=== PATIENT | female | born 1945 | race Caucasian/White ===

== ENCOUNTER 2020-09-10 19:53 | Inpatient (IN) ==
[2020-09-10] MEDS ORDERED: FUROSEMIDE 10 MG/ML VIAL IV ONE (22:35)
[2020-09-10 22:50] LABS: Hematocrit 43.8 % (37.0-47.0); Hemoglobin 13.8 gm/dL (12.5-16.0); Mean Cell Volume 91.4 fl (78-100); Mean Corpuscular Hemoglobin 28.8 pg (27-31); Mean Corpuscular Hgb Conc 31.5 g/dl (32-36); Mean Platelet Volume 9.1 fl (8-12.5); Platelet Count 322 K/mm3 (150-450); Red Blood Count 4.79 M/mm3 (4.2-5.4); Red Cell Distribution Width 14.1 % (11.5-14.0); White Blood Count 27.2 K/mm3 (4.0-10.5)
[2020-09-10 22:52] LABS: Total Cells Counted 100
[2020-09-10 23:07] LABS: Troponin I 0.057 ng/mL (0.00-0.10)
[2020-09-10 23:13] LABS: Albumin * 2.6 gm/dl (3.4-5.0); Anion Gap 12.4 mmol/L (6.8-13.8); BUN/Creatinine Ratio 38.6 (9.0-21.6); Bilirubin, Total 0.7 mg/dL (0.0-1.1); Calcium * 10.2 mg/dL (7.9-10.9); Carbon Dioxide 33.8 mmol/L (24-32.6); Potassium 4.2 mmol/L (3.4-4.6); Total Protein 6.8 gm/dL (6.2-8.2)
[2020-09-10 23:20] LABS: Band 3 % (0-2.0); Lymphocyte 5 % (20-51); Monocyte 3 % (0-9); Neutrophil 89 % (42-75); Neutrophil # 24.2 K/mm3 (1.3-6.0); Platelet Estimate Normal (NORMAL); RBC Morphology Normal (NORMAL)
[2020-09-11 00:15] LABS: Urine Bilirubin 3 mg/dl (NEGATIVE); Urine Blood 50 /ul (NEGATIVE); Urine Ketone 15 mg/dL (NEGATIVE); Urine Nitrite Negative (NEGATIVE); Urine Protein 30 mg/dL (NEGATIVE); Urine Specific Gravity 1.025 SP.GR. (1.005-1.010); Urine Urobilinogen Normal (NORMAL); Urine pH 5.5 pH (5.0-7.0)
--- NOTE | 2020-09-11 00:24 | ERNOTE ---
Medical Problem HPI - Narrative Date of Service: 09/11/20 - General Chief Complaint: General Assessment Time Seen by Provider: 09/10/20 22:28 Source: patient, family Exam Limitations: no limitations - Immun/Allergies/Home Medications Immunizations: IMMUNIZATION HX Immunizations Up to Date Yes Allergies/Adverse Reactions: Allergies oxytetracycline [From Terramycin] Allergy (Verified 09/10/20 22:18) cleaning supplies Allergy (Uncoded 09/10/20 22:18) detergent Allergy (Uncoded 09/10/20 22:18) erythromycin Allergy (Uncoded 09/10/20 22:18) grasses Allergy (Uncoded 09/10/20 22:18) perfumes Allergy (Uncoded 09/10/20 22:18) Home Medications: HOME MEDICATIONS albuterol sulfate 0.63 mg/3 mL solution for nebulization 0.63 mg IH QID PRN 07/05/18 [Last Taken Unknown] brimonidine 0.15 % eye drops 1 drp OP BID ml 07/05/18 [Last Taken Unknown] acetaminophen 325 mg tablet See Rx Instructions PO .COMPLEX PRN 07/06/18 [Last Taken Unknown] albuterol sulfate 90 mcg/actuation aerosol inhaler See Rx Instructions IH .COMPLEX 07/06/18 [Last Taken Unknown] calcium carbonate 600 mg (1,500 mg)-vitamin D3 400 unit tablet 1 tab PO TID 07/06/18 [Last Taken Unknown] ipratropium bromide 0.02 % solution for inhalation See Rx Instructions IH .COMPLEX 07/06/18 [Last Taken Unknown] latanoprost 0.005 % eye drops 1 drp OP DAILY 07/06/18 [Last Taken Unknown] montelukast 10 mg tablet 10 mg PO DAILY #90 tab 07/17/18 [Last Taken Unknown] dorzolamide 2 % eye drops 1 drp OP TID 02/21/19 [Last Taken Unknown] spironolactone 25 mg tablet 50 mg PO DAILY #180 tab 03/19/20 [Last Taken Unknown] furosemide 40 mg tablet See Rx Instructions .ROUTE .COMPLEX #180 unspecified 03/21/20 [Last Taken Unknown] lisinopril 10 mg tablet See Rx Instructions .ROUTE .COMPLEX #90 unknown measurement unit code: not specified 06/16/20 [Last Taken Unknown] prednisone 20 mg tablet 20 mg PO DAILY #90 tab 06/20/20 [Last Taken Unknown] amlodipine 10 mg tablet See Rx Instructions .ROUTE .COMPLEX #90 unknown measurement unit code: not specified 06/27/20 [Last Taken Unknown] hydrocodone 5 mg-acetaminophen 325 mg tablet 1 tab PO .COMPLEX PRN #90 tab 08/29/20 [Last Taken Unknown] pioglitazone 15 mg tablet See Rx Instructions .ROUTE .COMPLEX #30 unknown measurement unit code: not specified 09/01/20 [Last Taken Unknown] - History of Present History Narrative: patient presents to ed with c/o increased edama and dyspnea has not taken lasix for several days Timing: constant, getting worse Severity: moderate Modifying Factors - (Improves): Present: other - nothing Modifying Factors - (Worsens): Present: movement Review of Systems - Review of Systems Constitutional: Present: See HPI, weakness, fatigue, malaise EYE: Present: no symptoms reported ENT: Present: no symptoms reported Respiratory: Present: shortness of breath, wheezing Cardiology: Present: no symptoms reported Gastrointestinal/Abdominal: Present: no symptoms reported Genitourinary: Present: no symptoms reported Musculoskeletal: Present: no symptoms reported Skin: Present: no symptoms reported Medical History (Last Reviewed 09/10/20 @ 22:18 by Catie Cevallos RN) Asthma Onset Date: Unknown Chronic obstructive pulmonary disease Onset Date: Unknown Chronic renal failure Onset Date: Unknown Colonoscopy refused Onset Date: Unknown Depression Onset Date: Unknown Diabetes mellitus Onset Date: Unknown Goiter Onset Date: Unknown mutlinodular goiter Hypertension Onset Date: Unknown Hypokalemia Onset Date: Unknown Obesity Onset Date: Unknown Patella fracture Onset Date: 08/2018 left Polio Onset Date: Unknown Primary localized osteoarthrosis, ankle and foot Onset Date: Unknown Respiratory failure, chronic Onset Date: ~2007 significant respiratory failure with hypoxemia and CO2 retention secondary to COPD Surgical History: Surgical History (Last Reviewed 09/10/20 @ 22:18 by Catie Cevallos, RENITA) Cataract Onset Date: ~1999 [id number] both eyes Encounter for tubal ligation Onset Date: ~1969 History of tonsillectomy Onset Date: ~1949 Family History: Family History (Last Reviewed 09/10/20 @ 22:18 by Catie Cevallos, RENITA) Father , age 82 Alzheimers disease Mother Hypertension Heart disease Breast cancer Skin cancer Borderline diabetes Social History: (Last Reviewed 09/10/20 @ 22:18 by Catie Cevallos RN) Social History: Marital status: / household members: none current occupational status: retired current occupation: disability Highest education level completed: some college, no degree Service: No Tobacco: Smoking Status: Current every day smoker Alcohol: alcohol intake: current Substance Use: substance use type: does not use Dietary Habits: caffeine: Yes Type: coffee Physical Exam - Physical Exam General Appearance: Present: moderate distress, anxious Head Exam: Present: normal inspection, no evidence of injury Eye Exam: Normal inspection: bilateral, PERRL: bilateral, EOMI: bilateral Ears, Nose, Throat: Present: normal ENT inspection, normal pharynx Neck: Present: normal inspection, nontender Respiratory: Present: no respiratory distress, no accessory muscle use, rales, rhonchi Cardiovascular/Chest: Present: irregularly irregular Gastrointestinal/Abdominal: Present: normal bowel sounds, nontender, nondistended, soft, no organomegaly Back Exam: Present: normal inspection, normal range of motion, no CVA tenderness, no vertebral tenderness Extremity Exam: Present: normal except - - upper and lower extremity edema Neurological Exam: Present: alert, oriented, normal mood/affect, no motor/sensory deficits Skin Exam: Present: normal color, warm/dry Lymphatic Exam: Present: no adenopathy Progress - Date and Time Seen: Date and Time: 09/11/20 00:20 condition unchanged case discussed with dr bailey accepted for admission - Results and Orders Patient's Lab Results:: I have reviewed the patient's lab results. - Vital Signs Patient's Vital Signs:: I have reviewed the patient's vital signs. Vital Signs: Vital Signs 09/10/20 19:54 09/10/20 23:18 09/10/20 23:46 Temperature 36.9 C Pulse Rate 112 H 101 H 106 H Respiratory Rate 28 H 20 Blood Pressure 104/63 109/80 127/64 O2 Sat by Pulse Oximetry 94 99 - EKG EKG #1 EKG: atrial fibrillation - X-Ray X-Ray #1 X-Ray: chest - pulmonary edema - Progress/Reassessment Chief Complaint: General Assessment Progress:: Unchanged - Transfer of Care Expected Disposition: Admit Plan - Plan Plan: to admit to hospital Departure Clinical Impression: Chronic obstructive pulmonary disease, CRF (chronic renal failure), CHF (congestive heart failure) - Departure Disposition: Short Term Hospital Inpatient Condition: Serious Referrals: Noel Garibay MD [Primary Care Provider] -
[2020-09-11 00:26] LABS: Urine Appearance Clear (CLEAR); Urine Color Yellow
[2020-09-11 00:27] LABS: Urine Bacteria 3+; Urine WBC 0-5 /hpf (0-5)
[2020-09-11] MEDS ORDERED: METOPROLOL TARTRATE 1 MG/ML AMPUL IV ONE (03:04)
[2020-09-11] MEDS ORDERED: ALBUTEROL SULFATE 200 PUFF INHALER IH PRN (05:33)
--- NOTE | 2020-09-11 08:29 | HP ---
Chief Complaint - Chief Complaint Date of Service: 09/11/20 Time of Service: 08:11 Chief Complaint: dyspnea History of Present Illness: Alejandra Dewitt is a 75-year-old white female with past medical history of COPD, diabetes mellitus type 2, polycythemia secondary to chronic hypoxia, chronic renal failure, hypertension who was admitted on 09/10/2020 because of increasing dyspnea. The patient went to the emergency room because she said th at her shortness of breath has been getting worse and she noticed swelling of her legs and arms. She admitted that she did not take her Lasix and had been noncompliant with her decrease salt intake. She also says that 2 weeks ago her right hand started getting swollen and then started getting red. She did not have any history of trauma to her right hand or any insect bites or pet bites/scratch. In the emergency room her white blood cell count was elevated at 27, BNP of 8499, procalcitonin of 2.67, Cr 1.4 with GFR 44. Her chest x-ray showed hyperinflation, mild left ventricular enlargement, questionable infrahilar/right lower lobe infiltrate. It did not show any pulmonary edema or pleural effusion. She denied coughing more than her usual coughs. She also denies any orthopnea. Her EKG showed atrial fibrillation with rapid ventricular rate. She was given IV furosemide, IV Rocephin and was admitted by emergency room as congestive heart failure. Medical History (Last Reviewed 09/10/20 @ 22:18 by Catie Cevallos RN) Asthma Onset Date: Unknown Chronic obstructive pulmonary disease Onset Date: Unknown Chronic renal failure Onset Date: Unknown Colonoscopy refused Onset Date: Unknown Depression Onset Date: Unknown Diabetes mellitus Onset Date: Unknown Goiter Onset Date: Unknown mutlinodular goiter Hypertension Onset Date: Unknown Hypokalemia Onset Date: Unknown Obesity Onset Date: Unknown Patella fracture Onset Date: 08/2018 left Polio Onset Date: Unknown Primary localized osteoarthrosis, ankle and foot Onset Date: Unknown Respiratory failure, chronic Onset Date: ~2007 significant respiratory failure with hypoxemia and CO2 retention secondary to COPD Surgical History: Surgical History (Last Reviewed 09/10/20 @ 22:18 by Catie Cevallos RN) Cataract Onset Date: ~1999 [id number] both eyes Encounter for tubal ligation Onset Date: ~1969 History of tonsillectomy Onset Date: ~1949 Family History: Family History (Last Reviewed 09/10/20 @ 22:18 by Catie Cevallos RN) Father , age 82 Alzheimers disease Mother Hypertension Heart disease Breast cancer Skin cancer Borderline diabetes Social History: (Last Reviewed 09/10/20 @ 22:18 by Catie Cevallos RN) Social History: Marital status: / household members: none current occupational status: retired current occupation: disability Highest education level completed: some college, no degree Service: No Tobacco: Smoking Status: Current every day smoker Alcohol: alcohol intake: current Substance Use: substance use type: does not use Dietary Habits: caffeine: Yes Type: coffee Review Of Systems (GEN) - Review of Systems Generalized/Overall Review: Present: Weight gain. Absent: Chills, Fever Respiratory: Present: Cough, Shortness of Breath, Wheezing. Absent: Orthopnea Cardiac: Present: Edema, Palpitations. Absent: Chest Pain Abdominal: Absent: Nausea, Vomiting Genitourinary: Absent: Urgency, Frequency Musculoskeletal: Present: Joint Pain Neurological: Absent: Headache Skin: Present: Other - Erythema. Absent: Lesions Endocrine: Absent: Intolerance to Cold, Intolerance to Heat Misc: All systems neg except as marked Immunizations: IMMUNIZATION HX Immunizations Up to Date Yes Allergies/Adverse Reactions: Allergies Allergy/AdvReac Type Severity Reaction Status Date / Time oxytetracycline Allergy Verified 09/10/20 22:18 [From Terramycin] cleaning supplies Allergy Uncoded 09/10/20 22:18 detergent Allergy Uncoded 09/10/20 22:18 erythromycin Allergy Uncoded 09/10/20 22:18 grasses Allergy Uncoded 09/10/20 22:18 perfumes Allergy Uncoded 09/10/20 22:18 Home Medications: HOME MEDICATIONS albuterol sulfate 0.63 mg/3 mL solution for nebulization 0.63 mg IH QID PRN 07/05/18 [Last Taken Unknown] brimonidine 0.15 % eye drops 1 drp OP BID ml 07/05/18 [Last Taken Unknown] acetaminophen 325 mg tablet See Rx Instructions PO .COMPLEX PRN 07/06/18 [Last Taken Unknown] albuterol sulfate 90 mcg/actuation aerosol inhaler See Rx Instructions IH .COMPLEX 07/06/18 [Last Taken Unknown] calcium carbonate 600 mg (1,500 mg)-vitamin D3 400 unit tablet 1 tab PO TID 0 07/06/18 [Last Taken Unknown] ipratropium bromide 0.02 % solution for inhalation See Rx Instructions IH .COMPLEX 07/06/18 [Last Taken Unknown] latanoprost 0.005 % eye drops 1 drp OP DAILY 07/06/18 [Last Taken Unknown] montelukast 10 mg tablet 10 mg PO DAILY #90 tab 07/17/18 [Last Taken Unknown] dorzolamide 2 % eye drops 1 drp OP TID 02/21/19 [Last Taken Unknown] spironolactone 25 mg tablet 50 mg PO DAILY #180 tab 03/19/20 [Last Taken Unknown] furosemide 40 mg tablet See Rx Instructions .ROUTE .COMPLEX #180 unspecified 03/21/20 [Last Taken Unknown] lisinopril 10 mg tablet See Rx Instructions .ROUTE .COMPLEX #90 unknown measurement unit code: not specified 06/16/20 [Last Taken Unknown] prednisone 20 mg tablet 20 mg PO DAILY #90 tab 06/20/20 [Last Taken Unknown] amlodipine 10 mg tablet See Rx Instructions .ROUTE .COMPLEX #90 unknown measurement unit code: not specified 06/27/20 [Last Taken Unknown] hydrocodone 5 mg-acetaminophen 325 mg tablet 1 tab PO .COMPLEX PRN #90 tab 08/29/20 [Last Taken Unknown] pioglitazone 15 mg tablet See Rx Instructions .ROUTE .COMPLEX #30 unknown measurement unit code: not specified 09/01/20 [Last Taken Unknown] Albuterol Sulfate 2.5 mg INHALATION PRN PRN 09/11/20 [Last Taken Unknown] Ascorbate Calcium [Vitamin C] 500 mg PO DAILY 09/11/20 [Last Taken Unknown] Ipratropium [place] [Atrovent] 2.5 inh PRN PRN 09/11/20 [Last Taken Unknown] Sennosides/Docusate Sodium [Stool Softener-Laxative Tablet] 1 tab PO PRN PRN 09/11/20 [Last Taken Unknown] Vitamin A 10,000 unit PO DAILY 09/11/20 [Last Taken Unknown] guaiFENesin [Guaifenesin] 1 cap PO PRN PRN 09/11/20 [Last Taken Unknown] Exam - Exam Vital Signs: Vital Signs - Last Taken Temp 36.6 C 09/11/20 07:21 Pulse 115 H 09/11/20 07:21 Resp 20 09/11/20 07:21 BP 115/68 09/11/20 07:21 Pulse Ox 93 09/11/20 07:21 Constitutional: Present: Alert, Oriented x3, Cooperative, Elderly ENT Exam: Present: hearing grossly normal Eye Exam: bilateral eye: normal inspection, PERRL, EOMI Respiratory: Present: decreased breath sounds, crackles, wheezing Cardiovascular/Chest: Present: no JVD, no murmur, irregularly irregular Abdomen: Present: Normal bowel sounds, soft, nontender, nondistended Extremity: Present: no calf tenderness, lower extremity edema, other - swelling/redness right hand, blister dorsum, thenar eminence tender and swollen, pulses faint, decreased ROM/painful when trying to make a fist Diagnostic Studies: Abnormal Lab Results 09/10/20 09/10/20 09/10/20 Range/Units 22:40 22:40 22:40 WBC 27.2 H (4.0-10.5) K/mm3 MCHC 31.5 L (32-36) g/dl RDW 14.1 H (11.5-14.0) % Neutrophils % (Manual) 89 H (42-75) % Band Neuts % (Manual) 3 H (0-2.0) % Lymphocytes % (Manual) 5 L (20-51) % Neutrophils # (Manual) 24.2 H (1.3-6.0) K/mm3 Lymphocytes # (Manual) 1.4 L (1.5-3.5) k/mm3 pCO2 (32.0-45.0) mmHg pO2 (83.0-108.0) mmHg HCO3 (21.0-28.0) mmol/L Total CO2 (19.0-24.0) mmol/L Base Excess (-2.0-3.0) mmol/L ABG O2 Sat (Measured) (94.0-98.0) % Sodium 131 L (132-142) mmol/L Chloride 89 L (97-106) mmol/L Carbon Dioxide 33.8 H (24-32.6) mmol/L BUN 49 H D (3-23) mg/dL Est GFR (Non-Af Amer) 44 L D (60-130) mL/min BUN/Creatinine Ratio 38.6 H (9.0-21.6) Random Glucose 134 H (70-110) mg/dL Calcium Adj for Albumin 11.0 H (8.4-10.2) mg/dL B-Natriuretic Peptide 8499 H (5-550) pg/mL Albumin 2.6 L (3.4-5.0) gm/dl Procalcitonin 2.67 H (0.05-0.50) ng/mL Urine Protein (NEGATIVE) mg/dL Urine Blood (NEGATIVE) /ul Urine Bilirubin (NEGATIVE) mg/dl Urine RBC (0-5) /hpf Urine Bacteria (NONE) 09/10/20 09/11/20 Range/Units 23:25 00:05 WBC (4.0-10.5) K/mm3 MCHC (32-36) g/dl RDW (11.5-14.0) % Neutrophils % (Manual) (42-75) % Band Neuts % (Manual) (0-2.0) % Lymphocytes % (Manual) (20-51) % Neutrophils # (Manual) (1.3-6.0) K/mm3 Lymphocytes # (Manual) (1.5-3.5) k/mm3 pCO2 54.1 H (32.0-45.0) mmHg pO2 60.4 L (83.0-108.0) mmHg HCO3 32.2 H (21.0-28.0) mmol/L Total CO2 33.9 H (19.0-24.0) mmol/L Base Excess 5.8 H (-2.0-3.0) mmol/L ABG O2 Sat (Measured) 90.6 L (94.0-98.0) % Sodium (132-142) mmol/L Chloride (97-106) mmol/L Carbon Dioxide (24-32.6) mmol/L BUN (3-23) mg/dL Est GFR (Non-Af Amer) (60-130) mL/min BUN/Creatinine Ratio (9.0-21.6) Random Glucose (70-110) mg/dL Calcium Adj for Albumin (8.4-10.2) mg/dL B-Natriuretic Peptide (5-550) pg/mL Albumin (3.4-5.0) gm/dl Procalcitonin (0.05-0.50) ng/mL Urine Protein 30 H (NEGATIVE) mg/dL Urine Blood 50 H (NEGATIVE) /ul Urine Bilirubin 3 H (NEGATIVE) mg/dl Urine RBC 5-10 H (0-5) /hpf Urine Bacteria 3+ H (NONE) Laboratory Results WBC 27.2 K/mm3 (4.0-10.5) H 09/10/20 22:40 RBC 4.79 M/mm3 (4.2-5.4) 09/10/20 22:40 Hgb 13.8 gm/dL (12.5-16.0) 09/10/20 22:40 Hct 43.8 % (37.0-47.0) 09/10/20 22:40 MCV 91.4 fl (78-100) 09/10/20 22:40 MCH 28.8 pg (27-31) 09/10/20 22: MCHC 31.5 g/dl (32-36) L 09/10/20 22:40 RDW 14.1 % (11.5-14.0) H 09/10/20 22:40 Plt Count 322 K/mm3 (150-450) 09/10/20 22:40 MPV 9.1 fl (8-12.5) 09/10/20 22:40 Neutrophils % (Manual) 89 % (42-75) H 09/10/20 22:40 Band Neuts % (Manual) 3 % (0-2.0) H 09/10/20 22:40 Lymphocytes % (Manual) 5 % (20-51) L 09/10/20 22:40 Monocytes % (Manual) 3 % (0-9) 09/10/20 22:40 Neutrophils # (Manual) 24.2 K/mm3 (1.3-6.0) H 09/10/20 22:40 Lymphocytes # (Manual) 1.4 k/mm3 (1.5-3.5) L 09/10/20 22:40 Monocytes # (Manual) 0.8 k/mm3 (0.0-1.0) 09/10/20 22:40 Platelet Estimate Normal (NORMAL) 09/10/20:40 RBC Morphology Normal (NORMAL) 09/10/20 22:40 pCO2 54.1 mmHg (32.0-45.0) H 09/10/20 23:25 pO2 60.4 mmHg (83.0-108.0) L 09/10/20 23:25 HCO3 32.2 mmol/L (21.0-28.0) H 09/10/20 23:25 Total CO2 33.9 mmol/L (19.0-24.0) H 09/10/20 23:25 Base Excess 5.8 mmol/L (-2.0-3.0) H 09/10/20 23:25 ABG pH 7.39 (7.35-7.45) 09/10/20 23:25 ABG O2 Sat (Measured) 90.6 % (94.0-98.0) L 09/10/20 23:25 Sodium 131 mmol/L (132-142) L 09/10/20 22:40 Plasma Sodium 132 mmol/L (130-142) 09/10/20 22:40 Potassium 4.2 mmol/L (3.4-4.6) 09/10/20 22:40 Chloride 89 mmol/L (97-106) L 09/10/20 22:40 Carbon Dioxide 33.8 mmol/L (24-32.6) H 09/10/20 22:40 Anion Gap 12.4 mmol/L (6.8-13.8) 09/10/20 22:40 BUN 49 mg/dL (3-23) H D 09/10/20 22:40 Creatinine 1.27 mg/dL (0.4-1.4) 09/10/20 22:40 Est GFR (Non-Af Amer) 44 mL/min (60-130) L D 09/10/20 22:40 BUN/Creatinine Ratio 38.6 (9.0-21.6) H 09/10/20 22:40 Random Glucose 134 mg/dL (70-110) H 09/10/20 22:40 Lactic Acid, Venous 1.2 mmol/L (0.4-2.0) 09/11/20 01:32 Calcium 10.2 mg/dL (7.9-10.9) 09/10/20 22:40 Calcium Adj for Albumin 11.0 mg/dL (8.4-10.2) H 09/10/20 22:40 Total Bilirubin 0.7 mg/dL (0.0-1.1) 09/10/20 22:40 AST 25 U/L (0-48) 09/10/20 22:40 ALT 22 U/L (19-67) 09/10/20 22:40 Alkaline Phosphatase 99 U/L (50-170) 09/10/20 22:40 Troponin I 0.057 ng/mL (0.00-0.10) 09/10/20 22:40 C-Reactive Prot, Quant Less than 0.2 mg/dL (0.0-0.9) 09/10/20 22:53 B-Natriuretic Peptide 8499 pg/mL (5-550) H 09/10/20 22:40 Total Protein 6.8 gm/dL (6.2-8.2) 09/10/20 22:40 Albumin 2.6 gm/dl (3.4-5.0) L 09/10/20 22:40 Procalcitonin 2.67 ng/mL (0.05-0.50) H 09/10/20 22:40 Urine Color Yellow 09/11/20 00:05 Urine Appearance Clear (CLEAR) 09/11/20 00:05 Urine pH 5.5 pH (5.0-7.0) 09/11/20 00:05 Ur Specific [place] 1.025 SP.GR. (1.005-1.010) 09/11/20 00:05 Urine Protein 30 mg/dL (NEGATIVE) H 09/11/20 00:05 Urine Glucose (UA) Negative mg/dL (NEGATIVE) 09/11/20 00:05 Urine Ketones 15 mg/dL (NEGATIVE) 09/11/20 00:05 Urine Blood 50 /ul (NEGATIVE) H 09/11/20 00:05 Urine Nitrate Negative (NEGATIVE) 09/11/20 00:05 Urine Bilirubin 3 mg/dl (NEGATIVE) H 09/11/20 00:05 Urine Ictotest Negative (NEGATIVE) 09/11/20 00:05 Prot Sulfosalicylic Acd Negative mg/dL (0) 09/11/20 00:05 Urine Urobilinogen Normal EU/dl (NORMAL) 09/11/20 00:05 Ur Leukocyte Esterase Negative /ul (NEGATIVE) 09/11/20 00:05 Urine RBC 5-10 /hpf (0-5) H 09/11/20 00:05 Urine WBC 0-5 /hpf (0-5) 09/11/20 00:05 Ur Epithelial Cells 0-5 /hpf (0-5) 09/11/20 00:05 Urine Bacteria 3+ (NONE) H 09/11/20 00:05 Urine Culture Comments Culture to follow 09/11/20 00:05 Assessment/Plan - Narrative Narrative: Alejandra Bhagat was admitted for increasing shortness of breath and swelling of her extremities. Admitting diagnosis by ED was COPD, CHF, chronic renal failure. While her increasing shortness of breath can be explained by her underlying COPD with possible exacerbation as her chest x-ray showing questionable infiltrate in the right lung and therefore possible pneumonia, it is possible she also has shortness of breath due to pulmonary hypertension from her underlying COPD with right heart strain/failure causing edema and elevated BNP and aggravated by AFib. Her procalcitonin is also high. She also is in atrial fibrillation new onset. We will get TSH, echocardiogram. We will add vancomycin and change to cefepime for Pseudomonas coverage. Her right hand swelling with cellulitis will need to be worked up more to rule out necrotizing fasciitis or deep-seated infection like Palmar abscess/infected tenosynovitis. We will get x-ray of her hand right now and she will likely also need an MRI as well as an orthopedic consult. We will give her breathing treatments and she will need IV Solu-Medrol. Will diurese her, start her on rate control and start anticogulation. We ordered for COVID test. - Assessment/Plan (1) Dyspnea Problem: Acute Qualifiers: Dyspnea type: shortness of breath Qualified Code(s): R06.02 - Shortness of breath (2) Elevated brain natriuretic peptide (BNP) level Problem: Acute (3) Leukocytosis Problem: Acute (4) Cellulitis Problem: Acute Qualifiers: Site of cellulitis: extremity Site of cellulitis of extremity: upper extremity Laterality: right Qualified Code(s): L03.113 - Cellulitis of right upper limb (5) Pulmonary infiltrate in right lung on chest x-ray Problem: Acute (6) CHF (congestive heart failure) Problem: Suspected Qualifiers: Heart failure chronicity: acute (7) Atrial fibrillation Assessment: new onset Problem: Acute (8) Type II diabetes mellitus Problem: Chronic Qualifiers: Diabetes mellitus usp insulin use: without termite control technician use Diabetes mellitus complication status: with kidney complications Diabetes mellitus complication detail: with chronic kidney disease Chronic kidney disease stage: stage 3 (moderate) Chronic kidney disease stage 3 subtype: stage 3b (GFR 30- 44) Qualified Code(s): E11.21 - Type 2 diabetes mellitus with diabetic nephropathy; N18.32 - Chronic kidney disease, stage 3b (9) CRF (chronic renal failure) Problem: Chronic Qualifiers: Chronic kidney disease stage: stage 3 (moderate) Chronic kidney disease stage 3 subtype: stage 3b (GFR 30-44) Qualified Code(s): N18.32 - Chronic kidney disease, stage 3b (10) Chronic obstructive pulmonary disease Problem: Chronic Qualifiers: (11) Hypertension Problem: Chronic Qualifiers: Hypertension type: essential hypertension Qualified Code(s): I10 - Essential (primary) hypertension
[2020-09-11] MEDS: ALBUTEROL SULFATE 2.5 MG/0.5 ML VIAL.NEB IH PRN (08:40)
[2020-09-11] MEDS ORDERED: FLU VACC QS2020-21(6MOS UP)/PF 60 MCG/0.5 ML SYRINGE IM ONE (09:00)
[2020-09-11] MEDS ORDERED: AZITHROMYCIN 250 MG TABLET PO ONE (09:09)
[2020-09-11] MEDS ORDERED: guaiFENesin 100 MG/5 ML SYRUP PO PRN ×2 (09:12→11:00)
[2020-09-11] MEDS ORDERED: ACETAMINOPHEN 325 MG TABLET PO PRN (09:12)
[2020-09-11] MEDS ORDERED: SENNOSIDES/DOCUSATE SODIUM 1 TAB TABLET PO PRN ×2 (09:12→09:45)
[2020-09-11] MEDS ORDERED: ALBUTEROL SULFATE 200 PUFF INHALER IH SCH (09:15)
[2020-09-11] MEDS ORDERED: DILTIAZEM HCL 30 MG TABLET PO SCH ×2 (09:30→16:00)
[2020-09-11] MEDS ORDERED: ENOXAPARIN SODIUM 60 MG/0.6 ML SYRG SC SCH (09:30)
[2020-09-11] MEDS: SACCHAROMYCES BOULARDII 250 MG CAPSULE PO SCH ×2 (09:56→21:44)
[2020-09-11] MEDS: LISINOPRIL 10 MG TABLET PO SCH (09:59)
[2020-09-11] MEDS: MONTELUKAST SODIUM 10 MG TABLET PO SCH (09:59)
[2020-09-11] MEDS: BRIMONIDINE TARTRATE 50 DROP BTL OP SCH ×2 (10:04→21:42)
[2020-09-11] MEDS: LATANOPROST 25 DROP BTL OP SCH (10:06)
[2020-09-11] MEDS: METHYLPREDNISOLONE SOD SUCC/PF 40 MG/ML VIAL IV SCH ×3 (10:08→21:47)
[2020-09-11] MEDS: CEFEPIME HCL 1 GM in DEXTROSE 5 % IN WATER 100 ML IV SCH ×4 (10:24→21:45)
[2020-09-11] MEDS: VANCOMYCIN HCL 750 MG in DEXTROSE 5 % IN WATER 250 ML IV SCH ×4 (11:02→22:23)
[2020-09-11] MEDS: INSULIN LISPRO 100 UNITS/ML VIAL SC SCH ×3 (12:27→22:14)
[2020-09-11] MEDS: DORZOLAMIDE HCL 100 DROP BTL OP SCH ×2 (13:19→17:19)
[2020-09-11] MEDS ORDERED: DIGOXIN 0.25 MG/ML AMPUL IV ONE (13:59)
[2020-09-11] MEDS ORDERED: LIDOCAINE HCL 20 ML VIAL IJ ONE (14:13)
--- NOTE | 2020-09-11 14:48 | CONS ---
[facility] - General Date of Service: 09/11/20 Narrative: Mrs. Hoover is a 75-year-old female with multiple medical comorbidities who states in the last week or 2 she has noted increased swelling and pain to the dorsum aspect of her right hand. She feels it is getting better in the last couple days. She was admitted for exacerbation of her CHF and COPD. Upon evaluation today I was asked to look at her hands which is quite swollen and draining. She has some mild sloughing skin and weeping wounds. There are 2 punctate areas which are more productive of purulence. She denies any injury, insect bite, or prior issues in this area. She does have a history of wound healing complications. Source: patient Exam Limitations: no limitations - History of Present Illness Timing/Duration: 1 week Severity: mild Modifying Factors - (Worsens): Reports: movement Modifying Factors - (Improves): Reports: immobilization Associated Symptoms: denies symptoms Allergies/Adverse Reactions: Allergies oxytetracycline [From Terramycin] Allergy (Verified 09/10/20 22:18) cleaning supplies Allergy (Uncoded 09/10/20 22:18) detergent Allergy (Uncoded 09/10/20 22:18) erythromycin Allergy (Uncoded 09/10/20 22:18) grasses Allergy (Uncoded 09/10/20 22:18) perfumes Allergy (Uncoded 09/10/20 22:18) Home Medications: Home Medications Medication Instructions Recorded Last Taken albuterol sulfate 0.63 mg/3 mL 0.63 mg IH QID PRN 07/05/18 Unknown solution for nebulization brimonidine 0.15 % eye drops 1 drp OP BID ml 07/05/18 Unknown acetaminophen 325 mg tablet See Rx Instructions PO .COMPLEX PRN 07/06/18 Unknown albuterol sulfate 90 mcg/actuation See Rx Instructions IH .COMPLEX 07/06/18 Unknown aerosol inhaler calcium carbonate 600 mg (1,500 1 tab PO TID 07/06/18 Unknown mg)-vitamin D3 400 unit tablet ipratropium bromide 0.02 % See Rx Instructions IH .COMPLEX 07/06/18 Unknown solution for inhalation latanoprost 0.005 % eye drops 1 drp OP DAILY 07/06/18 Unknown montelukast 10 mg tablet 10 mg PO DAILY #90 tab 07/17/18 Unknown dorzolamide 2 % eye drops 1 drp OP TID 02/21/19 Unknown spironolactone 25 mg tablet 50 mg PO DAILY #180 tab 03/19/20 Unknown furosemide 40 mg tablet See Rx Instructions .ROUTE 03/21/20 Unknown .COMPLEX #180 unspecified lisinopril 10 mg tablet See Rx Instructions .ROUTE 06/16/20 Unknown .COMPLEX #90 unknown measurement unit code: not specified prednisone 20 mg tablet 20 mg PO DAILY #90 tab 06/20/20 Unknown amlodipine 10 mg tablet See Rx Instructions .ROUTE 06/27/20 Unknown .COMPLEX #90 unknown measurement unit code: not specified hydrocodone 5 mg-acetaminophen 325 1 tab PO .COMPLEX PRN #90 tab 08/29/20 Unknown mg tablet pioglitazone 15 mg tablet See Rx Instructions .ROUTE 09/01/20 Unknown .COMPLEX #30 unknown measurement unit code: not specified Albuterol Sulfate 2.5 mg INHALATION PRN PRN 09/11/20 Unknown Ascorbate Calcium [Vitamin C] 500 mg PO DAILY 09/11/20 Unknown Ipratropium Blanco [Atrovent] 2.5 inh PRN PRN 09/11/20 Unknown Sennosides/Docusate Sodium [Stool 1 tab PO PRN PRN 09/11/20 Unknown Softener-Laxative Tablet] Vitamin A 10,000 unit PO DAILY 09/11/20 Unknown guaiFENesin [Guaifenesin] 1 cap PO PRN PRN 09/11/20 Unknown Medications - Medications Current Medications: Current Medications Albuterol Sulfate (Albuterol Sulfate 2.5 Mg/0.5ml) 2.5 mg IH QID PRN PRN Reason: Shortness Of Breath Stop: 10/11/20 05:37 Last Admin: 09/11/20 08:40 Dose: 2.5 mg Documented by: Brimonidine Tartrate (Alphagan-P 0.15% Ophthalmic Solution) 1 drop OP BID SEBASTIAN Stop: 10/11/20 09:16 Last Admin: 09/11/20 10:04 Dose: 1 drop Documented by: Dorzolamide HCl (Trusopt) 1 drop OP TID SEBASTIAN Stop: 10/11/20 13:01 Last Admin: 09/11/20 13:19 Dose: 1 drop Documented by: Enoxaparin Sodium (Lovenox) 60 mg SC Q12H SEBASTIAN Stop: 10/11/20 09:31 Last Admin: 09/11/20 10:05 Dose: 60 mg Documented by: Vancomycin HCl 750 mg/ (Dextrose/Water) 250 mls @ 140 mls/hr IV Q12H [facility]; Protocol Stop: 10/11/20 10:01 Last Infusion: 09/11/20 13:40 Dose: Infused Documented by: Cefepime HCl 1 gm/ Dextrose/ (Water) 100 mls @ 200 mls/hr IV Q12H [facility]; Protocol Stop: 10/11/20 09:16 Last Infusion: 09/11/20 11:03 Dose: Infused Documented by: Insulin Human Lispro (Humalog) 0 - 21 units SC ACHSINS [facility]; Protocol Stop: 10/11/20 12:01 Last Admin: 09/11/20 12:27 Dose: Not Given Documented by: Latanoprost (Xalatan) 1 drop OP DAILY [facility] Stop: 10/11/20 09:16 Last Admin: 09/11/20 10:06 Dose: 1 drop Documented by: Lisinopril (Zestril) 10 mg PO DAILY [facility] Stop: 10/11/20 09:16 Last Admin: 09/11/20 09:59 Dose: 10 mg Documented by: Methylprednisolone Sodium Succinate (Solu-Medrol) 40 mg IV Q6H SEBASTIAN Stop: 10/11/20 09:16 Last Admin: 09/11/20 10:08 Dose: 40 mg Documented by: Montelukast Sodium (Singulair) 10 mg PO DAILY [facility] Stop: 10/11/20 09:16 Last Admin: 09/11/20 09:59 Dose: 10 mg Documented by: Saccharomyces Boulardii (Florastor) 250 mg PO BID [facility] Stop: 10/11/20 09:01 Last Admin: 09/11/20 09:56 Dose: 250 mg Documented by: Review of Systems - Review of Systems Narrative: As above Physical Examination - Exam Narrative: Right upper extremity: There are 2 small open draining areas along the dorsal ulnar aspect of the mid hand. Her ring finger has some erythema, there is noted swelling and palpable fluctuance over the dorsal aspect in the midportion of the hand. There is superficial sloughing skin with weeping serous fluid. He has pain with motion as well as palpation. She is able to flex and extend all of her digits. She has brisk capillary refill. There does not appear to be any extension of the erythema or cellulitis above the level of the wrist retinaculum. There does not appear to be significant erythema into any of the digits other than the ring finger. Vital Signs: Vital Signs - Last Taken Temp 36.8 C 09/11/20 12:26 Pulse 98 09/11/20 12:26 Resp 18 09/11/20 10:35 BP 107/56 09/11/20 12:26 Pulse Ox 93 09/11/20 12:26 O2 Oxygen Delivery Method Nasal Cannula Constitutional: Present: Alert, Oriented x3 - Results and Findings: Narrative: Right hand films: Noted soft tissue swelling, no sign of foreign body, no acute osseous pathology Lab/Microbiology results last 24 hrs: Abnormal/Pending Laboratory Last 24 HRS 09/11/20 09/10/20 09/10/20 00:05 23:25 22:40 WBC MCHC RDW Neutrophils % (Manual) Band Neuts % (Manual) Lymphocytes % (Manual) Neutrophils # (Manual) Lymphocytes # (Manual) pCO2 54.1 H pO2 60.4 L HCO3 32.2 H Total CO2 33.9 H Base Excess 5.8 H ABG O2 Sat (Measured) 90.6 L Sodium Chloride Carbon Dioxide BUN Est GFR (Non-Af Amer) BUN/Creatinine Ratio Random Glucose Calcium Adj for Albumin B-Natriuretic Peptide Albumin Procalcitonin TSH 0.028 L Urine Protein 30 H Urine Blood 50 H Urine Bilirubin 3 H Urine RBC 5-10 H Urine Bacteria 3+ H 09/10/20 09/10/20 09/10/20 22:40 22:40 22:40 WBC 27.2 H MCHC 31.5 L RDW 14.1 H Neutrophils % (Manual) 89 H Band Neuts % (Manual) 3 H Lymphocytes % (Manual) 5 L Neutrophils # (Manual) 24.2 H Lymphocytes # (Manual) 1.4 L pCO2 pO2 HCO3 Total CO2 Base Excess ABG O2 Sat (Measured) Sodium 131 L Chloride 89 L Carbon Dioxide 33.8 H BUN 49 H D Est GFR (Non-Af Amer) 44 L D BUN/Creatinine Ratio 38.6 H Random Glucose 134 H Calcium Adj for Albumin 11.0 H B-Natriuretic Peptide 8499 H Albumin 2.6 L Procalcitonin 2.67 H TSH Urine Protein Urine Blood Urine Bilirubin Urine RBC Urine Bacteria Culture 09/11/20 02:33 - Final Nares MRSA Positive - Assessments/Findings (1) Abscess of right hand excluding fingers and thumb Diagnosis(s): With manipulation and pressure on the dorsal aspect of her hand there did produce purulent tissue and purulent material. We discussed that I would recommend surgical irrigation and debridement but she declined. She was willing to have a bedside incision and drainage. Consent was obtained at bedside. See procedure note. Culture was obtained during the incision and drainage and antibiotics should be tailored to that. She is not willing to undergo surgical intervention and thus I would treat this with wound care and antibiotics. We will watch it clinically. She has a Har[place] drain which we will remove the next day or 2 as well as a bulky dressing. Problem: Acute
--- NOTE | 2020-09-11 14:52 | OR ---
Operative Report - Dictated Report Narrative: DATE: 09/11/2020 SURGEON: Luis Savage MD BEHAVIOR ANALYST: None PREOPERATIVE DIAGNOSIS: Abscess right dorsal hand POSTOPERATIVE DIAGNOSIS: Abscess right dorsal hand OPERATION PERFORMED: Incision and drainage of right dorsal hand abscess ANESTHESIA: Local COMPLICATIONS: None. DRAINS: None. SPECIMENS: Culture to pathology ESTIMATED BLOOD LOSS: Minimal. DESCRIPTION OF PROCEDURE: After consent and a timeout, the right hand was prepped with Betadine. Longitudinal incision was made centered over the area of fluctuance. This resulted in thin as well as thick purulent material extruding. There was a dorsal abscess which was thoroughly explored and the septae were opened. A culture was obtained. This extended over to the ulnar aspect of the dorsal hand which was also explored. The hand was then irrigated. The majority of the purulent material and any necrotic tissue was debrided mechanically. Once it was felt that we had adequately decompressed and drained the abscess, a [place] drain was placed into the wound. Wound was left open. 4 x 4's, Telisiah, Vidal were applied. Culture will be sent to pathology.
[2020-09-11] MEDS: HYDROcodone/ACETAMINOPHEN 1 EACH TABLET PO PRN (16:06)
[2020-09-11] MEDS: DIGOXIN 0.25 MG/ML AMPUL IV SCH (21:41)
[2020-09-11] MEDS: APIXABAN 2.5 MG TABLET PO SCH (21:43)
[2020-09-11] MEDS: METOPROLOL TARTRATE 50 MG TABLET PO SCH (22:04)
[2020-09-11] MEDS: INSULIN GLARGINE,HUM.REC.ANLOG 100 UNITS/ML VIAL SC SCH (22:17)
[2020-09-12] MEDS: DIGOXIN 0.25 MG/ML AMPUL IV SCH ×3 (02:46→15:06)
[2020-09-12] MEDS: METHYLPREDNISOLONE SOD SUCC/PF 40 MG/ML VIAL IV SCH ×4 (02:47→20:55)
[2020-09-12] MEDS: ALBUTEROL SULFATE 2.5 MG/0.5 ML VIAL.NEB IH PRN (06:59)
[2020-09-12 07:17] LABS: Hematocrit 40.7 % (37.0-47.0); Hemoglobin 12.9 gm/dL (12.5-16.0); Mean Cell Volume 91.1 fl (78-100); Mean Corpuscular Hemoglobin 28.9 pg (27-31); Mean Corpuscular Hgb Conc 31.7 g/dl (32-36); Mean Platelet Volume 9.2 fl (8-12.5); Platelet Count 337 K/mm3 (150-450); Red Blood Count 4.47 M/mm3 (4.2-5.4); Red Cell Distribution Width 14.2 % (11.5-14.0); White Blood Count 23.3 K/mm3 (4.0-10.5)
[2020-09-12 07:25] LABS: Total Cells Counted 100
[2020-09-12 07:32] LABS: Anion Gap 8.7 mmol/L (6.8-13.8); BUN/Creatinine Ratio 52.9 (9.0-21.6); Calcium * 10.3 mg/dL (7.9-10.9); Carbon Dioxide 34.6 mmol/L (24-32.6); Estimated Creat Clear 44.2; Potassium 4.3 mmol/L (3.4-4.6)
[2020-09-12 07:42] LABS: CRP 23.1 mg/dL (0.0-0.9)
[2020-09-12 07:46] LABS: Atypical (Reactive) Lymph 2 % (0-2); Band 11 % (0-2.0); Lymphocyte 1 % (20-51); Monocyte 2 % (0-9); Neutrophil 84 % (42-75); Neutrophil # 19.6 K/mm3 (1.3-6.0)
[2020-09-12 07:48] LABS: Microcytosis Trace
[2020-09-12 07:49] LABS: Platelet Estimate Normal (NORMAL); Toxic Granulation 1+
[2020-09-12] MEDS ORDERED: FUROSEMIDE 10 MG/ML VIAL ONE (07:54)
[2020-09-12] MEDS: INSULIN LISPRO 100 UNITS/ML VIAL SC SCH ×4 (07:54→20:49)
[2020-09-12] MEDS: FUROSEMIDE 10 MG/ML VIAL IV SCH ×2 (07:57→08:34)
--- NOTE | 2020-09-12 08:22 | PN ---
Subjective - Date and Time Seen Date: 09/12/20 Time: 08:20 Subjective Narrative: patient had an episode of desaturation this monring but responded tp Venturi mask,40%, IV lasix and breathing treatment. patient AOOx 3. afebrile. Objective - Review of Systems Generalized/Overall Review: Denies: Chills, Fever EENTM: Denies: Blurred Vision Respiratory: Reports: Cough, Shortness of Breath, Wheezing - Occasional Abdominal: Denies: Nausea, Vomiting, Abdominal Pain Genitourinary Symptoms: Denies: Urgency, Frequency Musculoskeletal Complaints: Reports: Joint Pain - Chronic Neurological: Denies: Headache Skin: Reports: Bruising, Other - Swelling and redness right hand, bandaged. Denies: Lesions Endocrine: Denies: Intolerance to Cold, Intolerance to Heat Misc: All systems neg except as marked - Vitals Vitals: Last Vital Signs Temp 36.7 C 09/12/20 06:38 Pulse 99 09/12/20 07:57 Resp 22 H 09/12/20 07:44 BP 118/80 09/12/20 07:57 Pulse Ox 92 L 09/12/20 07:44 - Abnormal Lab Findings Abnormal Lab Findings: Abnormal Lab Results 09/10/20 09/12/20 09/12/20 Range/Units 22:40 07:10 07:10 WBC 23.3 H (4.0-10.5) K/mm3 MCHC 31.7 L (32-36) g/dl RDW 14.2 H (11.5-14.0) % Neutrophils % (Manual) 84 H (42-75) % Band Neuts % (Manual) 11 H (0-2.0) % Lymphocytes % (Manual) 1 L (20-51) % Neutrophils # (Manual) 19.6 H (1.3-6.0) K/mm3 Lymphocytes # (Manual) 0.2 L (1.5-3.5) k/mm3 ESR 92 H (0-15) mm/hr pCO2 (32.0-45.0) mmHg pO2 (83.0-108.0) mmHg HCO3 (21.0-28.0) mmol/L Total CO2 (19.0-24.0) mmol/L Base Excess (-2.0-3.0) mmol/L ABG O2 Sat (Measured) (94.0-98.0) % Sodium (132-142) mmol/L Plasma Sodium (130-142) mmol/L Chloride (97-106) mmol/L Carbon Dioxide (24-32.6) mmol/L BUN (3-23) mg/dL BUN/Creatinine Ratio (9.0-21.6) Random Glucose (70-110) mg/dL C-Reactive Prot, Quant (0.0-0.9) mg/dL TSH 0.028 L (0.358-3.74) uIU/mL 09/12/20 09/12/20 Range/Units 07:10 08:09 WBC (4.0-10.5) K/mm3 MCHC (32-36) g/dl RDW (11.5-14.0) % Neutrophils % (Manual) (42-75) % Band Neuts % (Manual) (0-2.0) % Lymphocytes % (Manual) (20-51) % Neutrophils # (Manual) (1.3-6.0) K/mm3 Lymphocytes # (Manual) (1.5-3.5) k/mm3 ESR (0-15) mm/hr pCO2 47.7 H (32.0-45.0) mmHg pO2 56.8 L (83.0-108.0) mmHg HCO3 29.7 H (21.0-28.0) mmol/L Total CO2 31.2 H (19.0-24.0) mmol/L Base Excess 4.2 H (-2.0-3.0) mmol/L ABG O2 Sat (Measured) 89.6 L (94.0-98.0) % Sodium 128 L (132-142) mmol/L Plasma Sodium 129 L (130-142) mmol/L Chloride 89 L (97-106) mmol/L Carbon Dioxide 34.6 H (24-32.6) mmol/L BUN 46 H (3-23) mg/dL BUN/Creatinine Ratio 52.9 H (9.0-21.6) Random Glucose 172 H (70-110) mg/dL C-Reactive Prot, Quant 23.1 H (0.0-0.9) mg/dL TSH (0.358-3.74) uIU/mL - Exam Constitutional: Present: Alert, Oriented x3, Cooperative, Elderly ENT Exam: Present: hearing grossly normal Neck: Present: supple. Absent: lymphadenopathy (R), lymphadenopathy (L) Respiratory: Present: decreased breath sounds, wheezing - Occasional, No rales Cardiovascular/Chest: Present: no JVD, diastolic murmur, irregularly irregular Abdomen: Present: Normal bowel sounds, soft, nontender, nondistended Extremity: Present: no calf tenderness, lower extremity edema, other - Positive swelling and redness right hand status post I&D Assessment/Plan Plan Narrative: Alejandra Hoover is a 75-year-old white female who was admitted on 09/10/2020 because of shortness of breath and edema. She also noticed redness and swelling of her right hand 2 weeks prior to admission. She is on IV Lasix daily for diuresis since admission.. Her clinical presentation and elevated BNP is likely due to pulmonary hypertension from her COPD with right heart failure likely cor pulmonale. Her chest x-ray showed no pulmonary edema or pleural effusion but questionable infiltrate in the right lower lobe and infrahilar area. Her echocardiogram showed normal ejection fraction, mild diastolic dysfunction, mild to moderate TR and WI with RSVP of 75mmHg on the maximum with an average of 65 mmHg. She has dilated right atrium and right ventricle. Her right hand showed no other issues abnormality on x-ray except for extensive soft tissue swelling. MRI of the hand was ordered to rule out necrotizing fasciitis/Palmar abscess but patient was not able to tolerate it and refused MRI. Orthopedic was consulted and I&D for abscess was done bedside as patient also refused going to the operating room. Blood cultures showed no growth in the first 24 hours however her urine CS is showing gram-negative bacilli and her wound culture is showing Staphylococcus species. She is on IV cefepime and azithromycin to cover for suspected pneumonia. She is also on vancomycin to cover for MRSA (cefepime will cover MSSA ) for her right hand infection. She is also experiencing A. fib new onset and her TSH was low. Since her hyperthyroid state is a possible etiology of her new onset A. fib Cardizem was stopped and metoprolol was started to control her heart rate and block also the peripheral effects of thyroxemia. I have added thyroid peroxidase antibody level and free T4. If she has thyroiditis we will likely start her on methimazole. She was also started on IV digoxin for rate control as well and her blood pressure was in the low 100s. Today we will hold her lisinopril as we do not have to much leeway on her blood pressure and increase her beta-millie for more rate control and more blockage of the peripheral effects of hyperthyroxinemia. This morning the patient desaturated and they started her on Venturi mask 40%. We advanced her IV Lasix and did breathing treatments. She is Covid negative. She is saturating 93% now. ABG showed a pH of 7.41/47.4/56.8/29.7/89.6%. We will keep her on the Venturi mask for a while and taper her down back to her usual 4 L of nasal cannula to keep her oxygen saturation 88% and above. She has mild hyponatremia and likely due to hypervolemic, hypotonic asymptomatic hyponatremia. We will continue with her IV diuresis. We talked about DNR status and for now she says she still wants to be intubated if needed or resuscitated if needed but will talk it over with family. Addendum: Her free T4 is normal. This could be subclinical hyperthyroidism but still could be hyperthyroidism if her T3 is high. Will likely do arrange a radionuclear scan as an outpatient when she is more stable to see if she has an autonomous nodule. Consider starting methimazole as her TSH is less than 0.1 with cardiovascular signs/symptoms. Awaiting thyroid peroxidase antibody. - Problems/Diagnosis (1) Dyspnea Problem: Acute Qualifiers: Dyspnea type: shortness of breath Qualified Code(s): R06.02 - Shortness of breath Narrative: MultifactorialCOPD exacerbation, suspected pneumonia, pulmonary hypertension, right heart failure (2) Elevated brain natriuretic peptide (BNP) level Problem: Acute Narrative: Due to pulmonary hypertension with right heart failure possible cor pulmonale (3) Leukocytosis Problem: Acute Narrative: Due to cellulitis and abscess of right hand and questionable infiltrate and therefore suspected pneumonia on chest x-ray (4) Cellulitis and abscess of hand Problem: Acute (5) Pulmonary infiltrate in right lung on chest x-ray Problem: Acute Narrative: Suspect pneumonia (6) CHF (congestive heart failure) Problem: Acute Qualifiers: Heart failure type: right-sided Heart failure chronicity: acute Qualified Code(s): I50.811 - Acute right heart failure Narrative: Cor pulmonale (7) Atrial fibrillation Problem: Acute Qualifiers: Atrial fibrillation type: persistent (not longstanding) Qualified Code(s): I48.19 - Other persistent atrial fibrillation Narrative: New onset. TSH low therefore suspect hyperthyroidism as possible cause (8) Type II diabetes mellitus Problem: Chronic Qualifiers: Diabetes mellitus custodial insulin use: without custodial use Diabetes mellitus complication status: with kidney complications Diabetes mellitus complication detail: with chronic kidney disease Chronic kidney disease stage: stage 3 (moderate) Chronic kidney disease stage 3 subtype: stage 3b (GFR 30- 44) Qualified Code(s): E11.21 - Type 2 diabetes mellitus with diabetic nephropathy; N18.32 - Chronic kidney disease, stage 3b (9) CRF (chronic renal failure) Problem: Chronic Qualifiers: Chronic kidney disease stage: stage 3 (moderate) Chronic kidney disease stage 3 subtype: stage 3b (GFR 30-44) Qualified Code(s): N18.32 - Chronic kidney disease, stage 3b Narrative: She had an acute renal failure on chronic renal failure on admission likely prerenal from right-sided heart failure but has improved improved to stage II (10) Chronic obstructive pulmonary disease Problem: Chronic Qualifiers: COPD type: COPD with acute exacerbation Qualified Code(s): J44.1 - Chronic obstructive pulmonary disease with (acute) exacerbation (11) Hypertension Problem: Chronic Qualifiers: Hypertension type: essential hypertension Qualified Code(s): I10 - Essential (primary) hypertension Narrative: Now on the low side due to A. fib and diuretic with beta-millie. We will hold her ANASTACIA inhibitor for now and increase her beta-millie to have better rate control And increased peripheral blockage of probable hyperthyroid state. (12) Hyponatremia Problem: Acute Narrative: Mild, likely due to hypervolemic, hypotonic hyponatremia. She is asymptomatic sodium means.
[2020-09-12] MEDS: SACCHAROMYCES BOULARDII 250 MG CAPSULE PO SCH ×2 (08:31→20:49)
[2020-09-12] MEDS: APIXABAN 2.5 MG TABLET PO SCH ×2 (08:32→20:47)
[2020-09-12] MEDS: MONTELUKAST SODIUM 10 MG TABLET PO SCH (08:32)
[2020-09-12] MEDS: METOPROLOL TARTRATE 50 MG TABLET PO SCH (08:32)
[2020-09-12] MEDS: BRIMONIDINE TARTRATE 50 DROP BTL OP SCH ×2 (08:33→21:10)
[2020-09-12] MEDS: LISINOPRIL 10 MG TABLET PO SCH (08:33)
[2020-09-12] MEDS: DORZOLAMIDE HCL 100 DROP BTL OP SCH ×3 (08:34→17:37)
[2020-09-12] MEDS: LATANOPROST 25 DROP BTL OP SCH (08:34)
[2020-09-12] MEDS ORDERED: METOPROLOL TARTRATE 50 MG TABLET PO SCH (09:00)
[2020-09-12] MEDS: CEFEPIME HCL 1 GM in DEXTROSE 5 % IN WATER 100 ML IV SCH ×4 (09:02→20:55)
[2020-09-12] MEDS: METOPROLOL TARTRATE 25 MG TABLET PO SCH ×2 (09:13→20:54)
[2020-09-12] MEDS: VANCOMYCIN/WATER FOR INJ (PEG) 1.5 GM/300 ML BAG IV SCH (10:24)
--- NOTE | 2020-09-12 11:51 | PN ---
Subjective - Date and Time Seen Date: 09/12/20 Time: 11:48 Subjective Narrative: Mrs. Hoover reports her hand feels dramatically better today than it did yesterday. She reports a lot less pain. She reports she is able to move her fingers with less discomfort. She has no complaints regarding the hand at this time. Objective Objective Narrative: Dressings taken down. Drain intact. Dried purulent drainage noted on dressing s. No odor. Swelling has improved dramatically. Cultures are showing a staph species ID and sensitivity pending. Patient's white count has improved over the last 24 hours. - Vitals Vitals: Last Vital Signs Temp 36.4 C 09/12/20 10:44 Pulse 86 09/12/20 10:44 Resp 24 H 09/12/20 10:44 BP 111/53 09/12/20 10:44 Pulse Ox 92 L 09/12/20 11:19 - Abnormal Lab Findings Abnormal Lab Findings: Abnormal Lab Results 09/12/20 09/12/20 09/12/20 Range/Units 07:10 07:10 07:10 WBC 23.3 H (4.0-10.5) K/mm3 MCHC 31.7 L (32-36) g/dl RDW 14.2 H (11.5-14.0) % Neutrophils % (Manual) 84 H (42-75) % Band Neuts % (Manual) 11 H (0-2.0) % Lymphocytes % (Manual) 1 L (20-51) % Neutrophils # (Manual) 19.6 H (1.3-6.0) K/mm3 Lymphocytes # (Manual) 0.2 L (1.5-3.5) k/mm3 ESR 92 H (0-15) mm/hr pCO2 (32.0-45.0) mmHg pO2 (83.0-108.0) mmHg HCO3 (21.0-28.0) mmol/L Total CO2 (19.0-24.0) mmol/L Base Excess (-2.0-3.0) mmol/L ABG O2 Sat (Measured) (94.0-98.0) % Sodium 128 L (132-142) mmol/L Plasma Sodium 129 L (130-142) mmol/L Chloride 89 L (97-106) mmol/L Carbon Dioxide 34.6 H (24-32.6) mmol/L BUN 46 H (3-23) mg/dL BUN/Creatinine Ratio 52.9 H (9.0-21.6) Random Glucose 172 H (70-110) mg/dL C-Reactive Prot, Quant 23.1 H (0.0-0.9) mg/dL 09/12/20 Range/Units 08:09 WBC (4.0-10.5) K/mm3 MCHC (32-36) g/dl RDW (11.5-14.0) % Neutrophils % (Manual) (42-75) % Band Neuts % (Manual) (0-2.0) % Lymphocytes % (Manual) (20-51) % Neutrophils # (Manual) (1.3-6.0) K/mm3 Lymphocytes # (Manual) (1.5-3.5) k/mm3 ESR (0-15) mm/hr pCO2 47.7 H (32.0-45.0) mmHg pO2 56.8 L (83.0-108.0) mmHg HCO3 29.7 H (21.0-28.0) mmol/L Total CO2 31.2 H (19.0-24.0) mmol/L Base Excess 4.2 H (-2.0-3.0) mmol/L ABG O2 Sat (Measured) 89.6 L (94.0-98.0) % Sodium (132-142) mmol/L Plasma Sodium (130-142) mmol/L Chloride (97-106) mmol/L Carbon Dioxide (24-32.6) mmol/L BUN (3-23) mg/dL BUN/Creatinine Ratio (9.0-21.6) Random Glucose (70-110) mg/dL C-Reactive Prot, Quant (0.0-0.9) mg/dL Assessment/Plan - Problems/Diagnosis (1) Abscess of right hand Problem: Acute Narrative: Clinically her hand is looking better. Continue with daily dressings. New dry dressings with 4 x 4's and Kerlix applied. Continue IV antibiotics while pending cultures which should have final tomorrow.
[2020-09-12] MEDS ORDERED: FUROSEMIDE 10 MG/ML VIAL IV ONE (14:13)
[2020-09-12] MEDS: ALBUTEROL SULFATE/IPRATROPIUM 3 ML NEBU IH PRN (14:19)
[2020-09-12] MEDS: AZITHROMYCIN 250 MG TABLET PO SCH (15:04)
[2020-09-12] MEDS: INSULIN GLARGINE,HUM.REC.ANLOG 100 UNITS/ML VIAL SC SCH (20:53)
[2020-09-13] MEDS: METHYLPREDNISOLONE SOD SUCC/PF 40 MG/ML VIAL IV SCH ×4 (04:20→21:11)
[2020-09-13 06:33] LABS: Hematocrit 38.2 % (37.0-47.0); Hemoglobin 12.2 gm/dL (12.5-16.0); Mean Cell Volume 91.8 fl (78-100); Mean Corpuscular Hemoglobin 29.3 pg (27-31); Mean Corpuscular Hgb Conc 31.9 g/dl (32-36); Mean Platelet Volume 9.3 fl (8-12.5); Neutrophil # 18.2 K/mm3 (1.3-6.0); Neutrophil % 91.9 % (42-75.0); Platelet Count 352 K/mm3 (150-450); Red Blood Count 4.16 M/mm3 (4.2-5.4); Red Cell Distribution Width 14.4 % (11.5-14.0); White Blood Count 19.8 K/mm3 (4.0-10.5)
[2020-09-13 06:55] LABS: BUN/Creatinine Ratio 48.2 (9.0-21.6); Estimated Creat Clear 46.3
[2020-09-13 06:56] LABS: Anion Gap 8.1 mmol/L (6.8-13.8); Calcium * 10.2 mg/dL (7.9-10.9); Potassium 4.1 mmol/L (3.4-4.6)
[2020-09-13 07:13] LABS: Digoxin 2.2 ng/mL (0.5-2.0)
[2020-09-13] MEDS: INSULIN LISPRO 100 UNITS/ML VIAL SC SCH ×4 (07:15→21:03)
[2020-09-13] MEDS: HYDROcodone/ACETAMINOPHEN 1 EACH TABLET PO PRN (08:08)
[2020-09-13] MEDS: SACCHAROMYCES BOULARDII 250 MG CAPSULE PO SCH ×2 (08:09→21:07)
[2020-09-13] MEDS: AZITHROMYCIN 250 MG TABLET PO SCH (08:11)
[2020-09-13] MEDS: MONTELUKAST SODIUM 10 MG TABLET PO SCH (08:12)
[2020-09-13] MEDS: APIXABAN 2.5 MG TABLET PO SCH ×2 (08:12→21:07)
[2020-09-13] MEDS: BRIMONIDINE TARTRATE 50 DROP BTL OP SCH ×2 (08:13→21:06)
[2020-09-13] MEDS: DORZOLAMIDE HCL 100 DROP BTL OP SCH ×3 (08:16→17:34)
[2020-09-13] MEDS: CEFEPIME HCL 1 GM in DEXTROSE 5 % IN WATER 100 ML IV SCH ×4 (08:34→21:10)
[2020-09-13] MEDS ORDERED: DIGOXIN 0.125 MG TABLET PO SCH (09:00)
[2020-09-13] MEDS: LATANOPROST 25 DROP BTL OP SCH (09:11)
[2020-09-13] MEDS: VANCOMYCIN/WATER FOR INJ (PEG) 1.5 GM/300 ML BAG IV SCH (09:12)
[2020-09-13] MEDS: METOPROLOL TARTRATE 25 MG TABLET PO SCH ×2 (09:53→21:10)
[2020-09-13] MEDS: FUROSEMIDE 10 MG/ML VIAL IV SCH (09:56)
--- NOTE | 2020-09-13 15:00 | PN ---
Subjective - Date and Time Seen Date: 09/13/20 Time: 14:58 Subjective Narrative: She reports her pain is improved. She feels that she is able to move her hand better. She denies any other concerns Objective - Vitals Vitals: Last Vital Signs Temp 36.1 C 09/13/20 11:00 Pulse 81 09/13/20 11:00 Resp 20 09/13/20 11:00 BP 112/55 09/13/20 11:00 Pulse Ox 93 09/13/20 11:00 - Abnormal Lab Findings Abnormal Lab Findings: Abnormal Lab Results 09/13/20 09/13/20 Range/Units 06:25 06:30 WBC 19.8 H (4.0-10.5) K/mm3 RBC 4.16 L (4.2-5.4) M/mm3 Hgb 12.2 L (12.5-16.0) gm/dL MCHC 31.9 L (32-36) g/dl RDW 14.4 H (11.5-14.0) % Immature Gran % (Auto) 1.30 H (0.001-0.429) % Immature Gran # (Auto) 0.25 H (0.000-0.0310) K/mm3 Neutrophils % 91.9 H (42-75.0) % Lymphocytes % 2.9 L (20-51) % Neutrophils # 18.2 H (1.3-6.0) K/mm3 Lymphocytes # 0.58 L (1.5-3.5) k/mm3 Chloride 93 L (97-106) mmol/L Carbon Dioxide 37.0 H (24-32.6) mmol/L BUN 40 H (3-23) mg/dL BUN/Creatinine Ratio 48.2 H (9.0-21.6) Random Glucose 119 H D (70-110) mg/dL Digoxin 2.2 H (0.5-2.0) ng/mL - Exam Exam Narrative: Right hand: Dressings changed and drain discontinued. There continues to be some poor appearing tissue over the dorsal aspect of the hand but overall it does appear better. she is able to flex and extend her digits. Continued erythema but significantly less swelling Cauti Physician Documentation - Urinary Catheter Management [place] catheter Date of Insertion: 09/12/20 Time of Insertion: 15:00 Assessment/Plan - Problems/Diagnosis (1) Abscess of right hand excluding fingers and thumb Problem: Acute Narrative: I again discussed with her surgical irrigation and debridement and she is adamantly declining surgical intervention. I do of some concern that this may not clear completely without surgical intervention but for now she wishes to continue with dressing change and antibiotics.
[2020-09-13] MEDS: INSULIN GLARGINE,HUM.REC.ANLOG 100 UNITS/ML VIAL SC SCH (21:10)
--- NOTE | 2020-09-13 23:49 | PN ---
Subjective - Date and Time Seen Date: 09/13/20 Time: 10:45 Subjective Narrative: Resting most of today. No significant change in condition. No fever, chills, nausea. Objective - Vitals Vitals: Last Vital Signs Temp 36.8 C 09/13/20 22:35 Pulse 69 09/13/20 22:35 Resp 16 09/13/20 22:35 BP 124/79 09/13/20 22:35 Pulse Ox 95 09/13/20 22:35 - Abnormal Lab Findings Abnormal Lab Findings: Abnormal Lab Results 09/13/20 09/13/20 Range/Units 06:25 06:30 WBC 19.8 H (4.0-10.5) K/mm3 RBC 4.16 L (4.2-5.4) M/mm3 Hgb 12.2 L (12.5-16.0) gm/dL MCHC 31.9 L (32-36) g/dl RDW 14.4 H (11.5-14.0) % Immature Gran % (Auto) 1.30 H (0.001-0.429) % Immature Gran # (Auto) 0.25 H (0.000-0.0310) K/mm3 Neutrophils % 91.9 H (42-75.0) % Lymphocytes % 2.9 L (20-51) % Neutrophils # 18.2 H (1.3-6.0) K/mm3 Lymphocytes # 0.58 L (1.5-3.5) k/mm3 Chloride 93 L (97-106) mmol/L Carbon Dioxide 37.0 H (24-32.6) mmol/L BUN 40 H (3-23) mg/dL BUN/Creatinine Ratio 48.2 H (9.0-21.6) Random Glucose 119 H D (70-110) mg/dL Digoxin 2.2 H (0.5-2.0) ng/mL - Exam Constitutional: Present: Somnolent - wearing venti mask at 31% Respiratory: Present: decreased breath sounds Cardiovascular/Chest: Present: regular rate, rhythm, edema - 2+ Abdomen: Present: Normal bowel sounds, soft, nontender Skin Exam: Present: other - bandage on hand Cauti Physician Documentation - Urinary Catheter Management Arrington catheter Date of Insertion: 09/12/20 Time of Insertion: 15:00 Assessment/Plan Plan Narrative: Stable, no significant change. Continue cefepime and vancomycin for pneumonia and MRSA abscess. - Problems/Diagnosis (1) Abscess of right hand Problem: Acute (2) Atrial fibrillation Problem: Acute Qualifiers: Atrial fibrillation type: persistent (not longstanding) Qualified Code(s): I48.19 - Other persistent atrial fibrillation (3) Pulmonary infiltrate in right lung on chest x-ray Problem: Acute (4) MRSA (methicillin resistant staph aureus) culture positive Problem: Acute
[2020-09-14] MEDS: METHYLPREDNISOLONE SOD SUCC/PF 40 MG/ML VIAL IV SCH ×4 (03:10→23:05)
[2020-09-14] MEDS: INSULIN LISPRO 100 UNITS/ML VIAL SC SCH ×4 (07:54→23:06)
[2020-09-14] MEDS: BRIMONIDINE TARTRATE 50 DROP BTL OP SCH ×2 (08:33→23:05)
[2020-09-14] MEDS: DORZOLAMIDE HCL 100 DROP BTL OP SCH ×3 (08:33→17:05)
[2020-09-14] MEDS: LATANOPROST 25 DROP BTL OP SCH (08:33)
[2020-09-14] MEDS: METOPROLOL TARTRATE 25 MG TABLET PO SCH ×2 (08:34→23:05)
[2020-09-14] MEDS: AZITHROMYCIN 250 MG TABLET PO SCH (08:34)
[2020-09-14] MEDS: APIXABAN 2.5 MG TABLET PO SCH ×2 (08:34→23:12)
[2020-09-14] MEDS: MONTELUKAST SODIUM 10 MG TABLET PO SCH (08:34)
[2020-09-14] MEDS: SACCHAROMYCES BOULARDII 250 MG CAPSULE PO SCH ×2 (08:34→23:07)
[2020-09-14] MEDS: FUROSEMIDE 10 MG/ML VIAL IV SCH (08:44)
[2020-09-14] MEDS: CEFEPIME HCL 1 GM in DEXTROSE 5 % IN WATER 100 ML IV SCH ×4 (09:05→23:06)
[2020-09-14] MEDS: VANCOMYCIN/WATER FOR INJ (PEG) 1.5 GM/300 ML BAG IV SCH (09:44)
[2020-09-14] MEDS: HYDROcodone/ACETAMINOPHEN 1 EACH TABLET PO PRN (10:05)
[2020-09-14] MEDS: INSULIN GLARGINE,HUM.REC.ANLOG 100 UNITS/ML VIAL SC SCH (23:08)
--- NOTE | 2020-09-14 23:17 | PN ---
Subjective - Date and Time Seen Date: 09/14/20 Time: 09:30 Subjective Narrative: Alejandra reports feeling better today, although still tired. No fever, chills, nausea, or vomiting. Objective - Vitals Vitals: Last Vital Signs Temp 36.3 C 09/14/20 21:57 Pulse 86 09/14/20 21:57 Resp 18 09/14/20 21:57 BP 134/68 09/14/20 21:57 Pulse Ox 94 09/14/20 21:57 - Abnormal Lab Findings Abnormal Lab Findings: Abnormal Lab Results 09/14/20 Range/Units 11:14 pCO2 47.8 H (32.0-45.0) mmHg pO2 58.3 L (83.0-108.0) mmHg HCO3 33.4 H (21.0-28.0) mmol/L Total CO2 34.9 H (19.0-24.0) mmol/L Base Excess 8.4 H (-2.0-3.0) mmol/L ABG pH 7.46 H (7.35-7.45) ABG O2 Sat (Measured) 91.4 L (94.0-98.0) % - Exam Constitutional: Present: Alert, Oriented x3, Cooperative ENT Exam: Present: hearing grossly normal Respiratory: Present: decreased breath sounds Cardiovascular/Chest: Present: regular rate, rhythm, no murmur Abdomen: Present: Normal bowel sounds, soft, nontender, nondistended Skin Exam: Present: other - hand bandaged Cauti Physician Documentation - Urinary Catheter Management Arrington catheter Date of Insertion: 09/12/20 Time of Insertion: 15:00 Assessment/Plan Plan Narrative: Continue antibiotics. Overall doing well. No changes today. - Problems/Diagnosis (1) Abscess of right hand Problem: Acute (2) Atrial fibrillation Problem: Acute Qualifiers: Atrial fibrillation type: persistent (not longstanding) Qualified Code(s): I48.19 - Other persistent atrial fibrillation (3) Pulmonary infiltrate in right lung on chest x-ray Problem: Acute (4) MRSA (methicillin resistant staph aureus) culture positive Problem: Acute
[2020-09-15] MEDS: METHYLPREDNISOLONE SOD SUCC/PF 40 MG/ML VIAL IV SCH (03:36)
[2020-09-15] MEDS: INSULIN LISPRO 100 UNITS/ML VIAL SC SCH ×4 (06:40→21:05)
--- NOTE | 2020-09-15 08:50 | PN ---
Subjective - Date and Time Seen Date: 09/15/20 Time: 08:47 Subjective Narrative: AAO x 3.afebrile. Tmax 36.8. swelling of her RUE is marledly decreased. Hand is with gauze bandage. Objective - Review of Systems Generalized/Overall Review: Reports: Weakness. Denies: Chills, Fever EENTM: Denies: Blurred Vision Respiratory: Reports: Cough, Shortness of Breath. Denies: Wheezing Cardiac: Denies: Chest Pain, Edema, Palpitations Abdominal: Denies: Nausea, Vomiting Genitourinary Symptoms: Denies: Urgency, Frequency Musculoskeletal Complaints: Reports: Joint Pain Neurological: Denies: Headache Skin: Reports: Lesions, Bruising Misc: All systems neg except as marked - Vitals Vitals: Last Vital Signs Temp 36.6 C 09/15/20 01:44 Pulse 98 09/15/20 02:00 Resp 30 H 09/15/20 01:44 BP 143/76 09/15/20 01:44 Pulse Ox 90 L 09/15/20 01:44 - Abnormal Lab Findings Abnormal Lab Findings: Abnormal Lab Results 09/14/20 Range/Units 11:14 pCO2 47.8 H (32.0-45.0) mmHg pO2 58.3 L (83.0-108.0) mmHg HCO3 33.4 H (21.0-28.0) mmol/L Total CO2 34.9 H (19.0-24.0) mmol/L Base Excess 8.4 H (-2.0-3.0) mmol/L ABG pH 7.46 H (7.35-7.45) ABG O2 Sat (Measured) 91.4 L (94.0-98.0) % - Exam Constitutional: Present: Alert, Oriented x3, Mild distress ENT Exam: Present: hearing grossly normal Neck: Present: supple. Absent: lymphadenopathy (R), lymphadenopathy (L) Respiratory: Present: decreased breath sounds, No rales, No wheezing Cardiovascular/Chest: Present: systolic murmur, irregularly irregular Abdomen: Present: soft, nontender, nondistended Extremity: Present: no calf tenderness, pedal edema Cauti Physician Documentation - Urinary Catheter Management Arrington catheter Date of Insertion: 09/12/20 Time of Insertion: 15:00 Assessment/Plan Plan Narrative: Alejandra was admitted on 09/11/2020 for shortness of breath and increasing edema. She admitted that she was not following her low-salt diet and started missing her diuretics. Her right hand also had been swollen and erythematous for 2 weeks before admission. Her dyspnea on exertion and her edema was secondary to elevated pulmonary hypertension from right heart failure due to cor pulmonale and noncompliance. She also had acute COPD exacerbation with hypoxemia. Her white blood cell count is elevated at 25 and chest x-ray showed questionable infiltrate in the right infrahilar and right lower lobe of her right lung field. She was started on IV Solu-Medrol, IV antibiotics, IV furosemide, and IV cefepime with IV Vanco. She was also found to be in atrial fibrillation with rapid ventricular rate, new onset likely secondary to her right heart failure but her TSH was also found to be low. Her Cardizem was changed to metoprolol to block peripheral effects of possible thyroxemia from possible thyroiditis. IV digoxin was also loaded. Her heart rate has been controlled for the most part. Her blood culture over the weekend showed E. coli in her urine and MRSA of her right hand infection. We will get a repeat follow- up CBC, BMP, BNP today. We will discontinue her IV Solu-Medrol and continue with her home prednisone daily. We will start her back spironolactone on top of her furosemide but will increase it to BID and decrease her digoxin to MWF. We will also restart her lisinopril. We will likely start her on oral Levaquin or Bactrim in am. Ortho has been following her up for her right hand infection. - Problems/Diagnosis (1) Dyspnea Problem: Acute Qualifiers: Dyspnea type: shortness of breath Qualified Code(s): R06.02 - Shortness of breath (2) Elevated brain natriuretic peptide (BNP) level Problem: Acute (3) UTI (urinary tract infection) Problem: Acute Narrative: E. Coli (4) Leukocytosis Problem: Acute (5) Cellulitis and abscess of hand Problem: Acute Narrative: s/p I & D (6) Pulmonary infiltrate in right lung on chest x-ray Problem: Acute (7) CHF (congestive heart failure) Problem: Acute Qualifiers: Heart failure type: right-sided Heart failure chronicity: acute Qualified Code(s): I50.811 - Acute right heart failure Narrative: will increase Furosemide to 40 BID and add spironlactone. (8) Atrial fibrillation Problem: Acute Qualifiers: Atrial fibrillation type: persistent (not longstanding) Qualified Code(s): I48.19 - Other persistent atrial fibrillation Narrative: digoxin changed to MWF (9) Type II diabetes mellitus Problem: Chronic Qualifiers: Diabetes mellitus continuous churn buttermaker insulin use: without continuous churn buttermaker use Diabetes mellitus complication status: with kidney complications Diabetes mellitus complication detail: with chronic kidney disease Chronic kidney disease stage: stage 3 (moderate) Chronic kidney disease stage 3 subtype: stage 3b (GFR 30- 44) Qualified Code(s): E11.21 - Type 2 diabetes mellitus with diabetic nephropathy; N18.32 - Chronic kidney disease, stage 3b Narrative: lantus increased ti 15 units. (10) CRF (chronic renal failure) Problem: Chronic Qualifiers: Chronic kidney disease stage: stage 3 (moderate) Chronic kidney disease stage 3 subtype: stage 3b (GFR 30-44) Qualified Code(s): N18.32 - Chronic kidney disease, stage 3b Narrative: improved to Stage II (11) Chronic obstructive pulmonary disease Problem: Chronic Qualifiers: COPD type: COPD with acute exacerbation Qualified Code(s): J44.1 - Chronic obstructive pulmonary disease with (acute) exacerbation (12) Hypertension Problem: Chronic Qualifiers: Hypertension type: essential hypertension Qualified Code(s): I10 - Essential (primary) hypertension (13) Hyponatremia Problem: Resolved
[2020-09-15] MEDS ORDERED: VANCOMYCIN HCL LEVEL XX ONE (09:30)
[2020-09-15 09:58] LABS: Hematocrit 44.1 % (37.0-47.0); Hemoglobin 14.1 gm/dL (12.5-16.0); Mean Cell Volume 91.5 fl (78-100); Mean Corpuscular Hemoglobin 29.3 pg (27-31); Mean Platelet Volume 9.2 fl (8-12.5); Neutrophil % 91.2 % (42-75.0); Platelet Count 439 K/mm3 (150-450); Red Blood Count 4.82 M/mm3 (4.2-5.4); Red Cell Distribution Width 14.1 % (11.5-14.0); White Blood Count 20.9 K/mm3 (4.0-10.5)
[2020-09-15 10:04] LABS: Anion Gap 8.3 mmol/L (6.8-13.8); BUN/Creatinine Ratio 63.2 (9.0-21.6); Calcium * 10.7 mg/dL (7.9-10.9); Carbon Dioxide 36.4 mmol/L (24-32.6); Estimated Creat Clear 44.2; Potassium 3.7 mmol/L (3.4-4.6)
[2020-09-15] MEDS: VANCOMYCIN/WATER FOR INJ (PEG) 1.5 GM/300 ML BAG IV SCH (10:14)
[2020-09-15] MEDS: CEFEPIME HCL 1 GM in DEXTROSE 5 % IN WATER 100 ML IV SCH ×4 (10:26→21:04)
[2020-09-15] MEDS: BRIMONIDINE TARTRATE 50 DROP BTL OP SCH ×2 (10:27→21:01)
[2020-09-15] MEDS: DORZOLAMIDE HCL 100 DROP BTL OP SCH ×3 (10:27→17:15)
[2020-09-15] MEDS: DIGOXIN 0.125 MG TABLET PO SCH (10:27)
[2020-09-15] MEDS: predniSONE 20 MG TABLET PO SCH (10:27)
[2020-09-15] MEDS: LATANOPROST 25 DROP BTL OP SCH (10:28)
[2020-09-15] MEDS: AZITHROMYCIN 250 MG TABLET PO SCH (10:28)
[2020-09-15] MEDS: LISINOPRIL 10 MG TABLET PO SCH (10:28)
[2020-09-15] MEDS: MONTELUKAST SODIUM 10 MG TABLET PO SCH (10:29)
[2020-09-15] MEDS: APIXABAN 2.5 MG TABLET PO SCH ×2 (10:29→21:02)
[2020-09-15] MEDS: SACCHAROMYCES BOULARDII 250 MG CAPSULE PO SCH ×2 (10:29→21:01)
[2020-09-15] MEDS: SPIRONOLACTONE 25 MG TABLET PO SCH (10:29)
[2020-09-15] MEDS: METOPROLOL TARTRATE 25 MG TABLET PO SCH ×2 (10:29→21:02)
[2020-09-15] MEDS: FUROSEMIDE 10 MG/ML VIAL IV SCH ×2 (10:37→21:03)
[2020-09-15] MEDS: ALBUTEROL SULFATE 2.5 MG/0.5 ML VIAL.NEB IH PRN (13:22)
[2020-09-15] MEDS: ALBUTEROL SULFATE/IPRATROPIUM 3 ML NEBU IH PRN (13:22)
[2020-09-15] MEDS: HYDROcodone/ACETAMINOPHEN 1 EACH TABLET PO PRN (16:48)
[2020-09-15] MEDS ORDERED: INSULIN GLARGINE,HUM.REC.ANLOG 100 UNITS/ML VIAL SC SCH (21:00)
[2020-09-15] MEDS ORDERED: WATER FOR INJ IV SCH (22:00)
[2020-09-15] MEDS ORDERED: VANCOMYCIN IV SCH (22:00)
[2020-09-16] MEDS: INSULIN LISPRO 100 UNITS/ML VIAL SC SCH ×3 (07:04→17:20)
[2020-09-16 07:31] LABS: Anion Gap 3.3 mmol/L (6.8-13.8); BUN/Creatinine Ratio 59.3 (9.0-21.6); Calcium * 9.7 mg/dL (7.9-10.9); Estimated Creat Clear 47.5; Potassium 3.3 mmol/L (3.4-4.6)
[2020-09-16 07:34] LABS: Hematocrit 43.9 % (37.0-47.0); Hemoglobin 13.8 gm/dL (12.5-16.0); Mean Cell Volume 92.6 fl (78-100); Mean Corpuscular Hemoglobin 29.1 pg (27-31); Mean Corpuscular Hgb Conc 31.4 g/dl (32-36); Mean Platelet Volume 9.1 fl (8-12.5); Platelet Count 418 K/mm3 (150-450); Red Blood Count 4.74 M/mm3 (4.2-5.4); White Blood Count 23.3 K/mm3 (4.0-10.5)
[2020-09-16 07:46] LABS: Total Cells Counted 100
[2020-09-16 07:57] LABS: Lymphocyte 9 % (20-51); Monocyte 10 % (0-9); Neutrophil 81 % (42-75); Neutrophil # 18.9 K/mm3 (1.3-6.0); Platelet Estimate Normal (NORMAL)
[2020-09-16 07:58] LABS: Toxic Granulation 1+
--- NOTE | 2020-09-16 08:21 | PN ---
Subjective - Date and Time Seen Date: 09/16/20 Time: 08:20 Subjective Narrative: feels better. WBC up to 23 again. afebrile. Objective - Vitals Vitals: Last Vital Signs Temp 36.8 C 09/16/20 07:20 Pulse 86 09/16/20 07:20 Resp 20 09/16/20 02:00 BP 129/81 09/16/20 07:20 Pulse Ox 91 L 09/16/20 07:20 - Abnormal Lab Findings Abnormal Lab Findings: Abnormal Lab Results 09/15/20 09/15/20 09/15/20 Range/Units 09:33 09:33 09:33 WBC 20.9 H (4.0-10.5) K/mm3 MCHC (32-36) g/dl RDW 14.1 H (11.5-14.0) % Immature Gran % (Auto) 1.90 H (0.001-0.429) % Immature Gran # (Auto) 0.40 H (0.000-0.0310) K/mm3 Neutrophils % 91.2 H (42-75.0) % Neutrophils % (Manual) (42-75) % Lymphocytes % 3.2 L (20-51) % Lymphocytes % (Manual) (20-51) % Monocytes % (Manual) (0-9) % Neutrophils # 19.0 H (1.3-6.0) K/mm3 Neutrophils # (Manual) (1.3-6.0) K/mm3 Lymphocytes # 0.66 L (1.5-3.5) k/mm3 Monocytes # (Manual) (0.0-1.0) k/mm3 Potassium (3.4-4.6) mmol/L Chloride 96 L (97-106) mmol/L Carbon Dioxide 36.4 H (24-32.6) mmol/L Anion Gap (6.8-13.8) mmol/L BUN 55 H (3-23) mg/dL BUN/Creatinine Ratio 63.2 H (9.0-21.6) Random Glucose 206 H D (70-110) mg/dL B-Natriuretic Peptide 88187 H (5-550) pg/mL Vancomycin Trough 24.1 H (10.0-20.0) mcg/mL 09/16/20 09/16/20 Range/Units 07:10 07:10 WBC 23.3 H (4.0-10.5) K/mm3 MCHC 31.4 L (32-36) g/dl RDW (11.5-14.0) % Immature Gran % (Auto) (0.001-0.429) % Immature Gran # (Auto) (0.000-0.0310) K/mm3 Neutrophils % (42-75.0) % Neutrophils % (Manual) 81 H (42-75) % Lymphocytes % (20-51) % Lymphocytes % (Manual) 9 L (20-51) % Monocytes % (Manual) 10 H (0-9) % Neutrophils # (1.3-6.0) K/mm3 Neutrophils # (Manual) 18.9 H (1.3-6.0) K/mm3 Lymphocytes # (1.5-3.5) k/mm3 Monocytes # (Manual) 2.3 H (0.0-1.0) k/mm3 Potassium 3.3 L (3.4-4.6) mmol/L Chloride (97-106) mmol/L Carbon Dioxide 41.0 H (24-32.6) mmol/L Anion Gap 3.3 L (6.8-13.8) mmol/L BUN 48 H (3-23) mg/dL BUN/Creatinine Ratio 59.3 H (9.0-21.6) Random Glucose 69 L D (70-110) mg/dL B-Natriuretic Peptide (5-550) pg/mL Vancomycin Trough (10.0-20.0) mcg/mL Cauti Physician Documentation - Urinary Catheter Management Arrington catheter Date of Insertion: 09/12/20 Time of Insertion: 15:00 Assessment/Plan Plan Narrative: Alejandra was admitted for edema and shortness of breath secondary to cor pulmonale with right heart failure and an infected right hand with cellulitis and abscess status post I&D. She has had 5 days of IV antibiotics for MRSA of her right hand infection and E. coli UTI. Her chest x-ray showed probable infiltrate of her infrahilar and lower lobe of the right lung field. This was covered by our IV antibiotics in case this was a community-acquired pneumonia. She received IV cefepime as well as azithromycin. Her white blood cell count is up again to 23. We will look at her right hand wound when the nurse cleans it and see if she needs to go back for irrigation and debridement by Ortho. We will discontinue her Arrington catheter and get a repeat UA and urine CS if warranted. Her IV Solu-Medrol was changed to oral prednisone yesterday and steroids could also play a role with this leukocytosis. She has been negative balance in her I and O. She has been referred to physical therapy. We will change her IV antibiotics now to p.o. Levaquin based on sensitivity and because of its very good bioavailability. She has COPD oxygen dependent and is at 4 L nasal cannula at home to keep oxygen saturation 88% and above. If she continues to be maintained on nasal cannula will plan for discharge planning in the morning with oral antibiotics for her MRSA infected right hand. - Problems/Diagnosis (1) Dyspnea Problem: Acute Qualifiers: Dyspnea type: shortness of breath Qualified Code(s): R06.02 - Shortness of breath (2) Elevated brain natriuretic peptide (BNP) level Problem: Acute (3) UTI (urinary tract infection) Problem: Acute (4) Leukocytosis Problem: Acute (5) Cellulitis and abscess of hand Problem: Acute (6) Pulmonary infiltrate in right lung on chest x-ray Problem: Acute (7) CHF (congestive heart failure) Problem: Acute Qualifiers: Heart failure type: right-sided Heart failure chronicity: acute Qualified Code(s): I50.811 - Acute right heart failure (8) Atrial fibrillation Problem: Acute Qualifiers: Atrial fibrillation type: persistent (not longstanding) Qualified Code(s): I48.19 - Other persistent atrial fibrillation (9) Type II diabetes mellitus Problem: Chronic Qualifiers: Diabetes mellitus care home insulin use: without care home use Diabetes mellitus complication status: with kidney complications Diabetes mellitus complication detail: with chronic kidney disease Chronic kidney disease stage: stage 3 (moderate) Chronic kidney disease stage 3 subtype: stage 3b (GFR 30- 44) Qualified Code(s): E11.21 - Type 2 diabetes mellitus with diabetic nephropathy; N18.32 - Chronic kidney disease, stage 3b (10) CRF (chronic renal failure) Problem: Chronic Qualifiers: Chronic kidney disease stage: stage 3 (moderate) Chronic kidney disease stage 3 subtype: stage 3b (GFR 30-44) Qualified Code(s): N18.32 - Chronic kidney disease, stage 3b (11) Chronic obstructive pulmonary disease Problem: Chronic Qualifiers: COPD type: COPD with acute exacerbation Qualified Code(s): J44.1 - Chronic obstructive pulmonary disease with (acute) exacerbation (12) Hypertension Problem: Chronic Qualifiers: Hypertension type: essential hypertension Qualified Code(s): I10 - Essential (primary) hypertension
[2020-09-16] MEDS ORDERED: POTASSIUM CHLORIDE 20 MEQ TABLET.SA PO ONE (08:33)
[2020-09-16] MEDS: SPIRONOLACTONE 25 MG TABLET PO SCH (08:43)
[2020-09-16] MEDS: LISINOPRIL 10 MG TABLET PO SCH (08:43)
[2020-09-16] MEDS: METOPROLOL TARTRATE 25 MG TABLET PO SCH ×2 (08:43→20:17)
[2020-09-16] MEDS: predniSONE 20 MG TABLET PO SCH (08:44)
[2020-09-16] MEDS: APIXABAN 2.5 MG TABLET PO SCH ×2 (08:44→20:15)
[2020-09-16] MEDS: MONTELUKAST SODIUM 10 MG TABLET PO SCH (08:44)
[2020-09-16] MEDS: SACCHAROMYCES BOULARDII 250 MG CAPSULE PO SCH ×2 (08:44→20:15)
[2020-09-16] MEDS: FUROSEMIDE 10 MG/ML VIAL IV SCH (08:44)
[2020-09-16] MEDS: DORZOLAMIDE HCL 100 DROP BTL OP SCH ×3 (08:45→17:20)
[2020-09-16] MEDS: LATANOPROST 25 DROP BTL OP SCH (08:45)
[2020-09-16] MEDS: BRIMONIDINE TARTRATE 50 DROP BTL OP SCH ×2 (08:45→20:14)
[2020-09-16] MEDS: HYDROcodone/ACETAMINOPHEN 1 EACH TABLET PO PRN ×2 (08:49→17:20)
[2020-09-16] MEDS: FUROSEMIDE 40 MG TABLET PO SCH ×2 (09:18→20:16)
[2020-09-16] MEDS: LEVOFLOXACIN 750 MG TABLET PO SCH (11:54)
--- NOTE | 2020-09-16 13:56 | ECHO ---
This report is available in the EMR
[2020-09-16] MEDS ORDERED: INSULIN GLARGINE,HUM.REC.ANLOG 100 UNITS/ML VIAL SC SCH (21:00)
[2020-09-17 06:49] LABS: Hematocrit 43.9 % (37.0-47.0); Hemoglobin 13.9 gm/dL (12.5-16.0); Mean Corpuscular Hemoglobin 29.1 pg (27-31); Mean Corpuscular Hgb Conc 31.7 g/dl (32-36); Mean Platelet Volume 8.8 fl (8-12.5); Platelet Count 386 K/mm3 (150-450); Red Blood Count 4.77 M/mm3 (4.2-5.4); White Blood Count 23.8 K/mm3 (4.0-10.5)
[2020-09-17 07:04] LABS: Total Cells Counted 100
[2020-09-17 07:08] LABS: Lymphocyte 7 % (20-51); Monocyte 4 % (0-9); Neutrophil 89 % (42-75); Neutrophil # 21.2 K/mm3 (1.3-6.0); Platelet Estimate Normal (NORMAL)
[2020-09-17 07:09] LABS: Hypochromia Trace
[2020-09-17] MEDS: INSULIN LISPRO 100 UNITS/ML VIAL SC SCH ×3 (07:30→17:27)
[2020-09-17 08:04] LABS: Urine Bilirubin Negative (NEGATIVE); Urine Blood 50 /ul (NEGATIVE); Urine Ketone Negative (NEGATIVE); Urine Nitrite Negative (NEGATIVE); Urine Protein 15 mg/dL (NEGATIVE); Urine Specific Gravity 1.015 SP.GR. (1.005-1.010); Urine Urobilinogen 4 EU/dl (NORMAL); Urine pH 7.5 pH (5.0-7.0)
[2020-09-17 08:13] LABS: Urine Appearance Cloudy (CLEAR); Urine Bacteria 2+; Urine Color Yellow; Urine WBC >50 /hpf (0-5)
--- NOTE | 2020-09-17 08:39 | PN ---
Subjective - Date and Time Seen Date: 09/17/20 Time: 08:38 Subjective Narrative: WBC is persistently high- likely due to wound infection and steroids. she contonue not to want to go to OR. Objective - Review of Systems Generalized/Overall Review: Reports: Weakness. Denies: Chills, Fever EENTM: Denies: Blurred Vision Respiratory: Reports: Cough, Shortness of Breath, Wheezing - Occasional Cardiac: Reports: Edema. Denies: Chest Pain, Palpitations - Significantly improved Abdominal: Denies: Nausea, Vomiting Genitourinary Symptoms: Denies: Urgency, Frequency Musculoskeletal Complaints: Reports: Joint Pain Neurological: Denies: Headache Skin: Reports: Bruising, Other - Necrotic skin on dorsum of right hand, minimal discharge, swelling of right hand markedly decreased - Vitals Vitals: Last Vital Signs Temp 37.0 C 09/17/20 02:14 Pulse 101 H 09/17/20 08:34 Resp 20 09/17/20 02:14 BP 110/64 09/17/20 02:14 Pulse Ox 93 09/17/20 02:14 - Abnormal Lab Findings Abnormal Lab Findings: Abnormal Lab Results 09/17/20 09/17/20 Range/Units 06:42 07:45 WBC 23.8 H (4.0-10.5) K/mm3 MCHC 31.7 L (32-36) g/dl Neutrophils % (Manual) 89 H (42-75) % Lymphocytes % (Manual) 7 L (20-51) % Neutrophils # (Manual) 21.2 H (1.3-6.0) K/mm3 Urine Protein 15 H (NEGATIVE) mg/dL Urine Blood 50 H (NEGATIVE) /ul Urine Urobilinogen 4 H (NORMAL) EU/dl Ur Leukocyte Esterase 75 H (NEGATIVE) /ul Urine RBC 5-10 H (0-5) /hpf Urine WBC >50 H (0-5) /hpf Ur Epithelial Cells >25 H (0-5) /hpf Urine Bacteria 2+ H (NONE) Urine Comment Culture ordered L - Exam Constitutional: Present: Alert, Oriented x3, Cooperative, Elderly ENT Exam: Present: hearing grossly normal Neck: Present: supple. Absent: lymphadenopathy (R), lymphadenopathy (L) Respiratory: Present: decreased breath sounds, wheezing - Occasional, No rales Cardiovascular/Chest: Present: no JVD, diastolic murmur, irregularly irregular Abdomen: Present: Normal bowel sounds, soft, nontender, nondistended Extremity: Present: no calf tenderness, pedal edema - Markedly decreased Cauti Physician Documentation - Urinary Catheter Management Arrington catheter Date of Insertion: 09/12/20 Time of Insertion: 15:00 Date of Removal: 09/16/20 Time of Removal: 08:50 Assessment/Plan Plan Narrative: Alejandra was admitted for shortness of breath and edema due to cor pulmonale from right-sided heart failure secondary to increased pulmonary hypertension. She also had an infected right hand underwent I & D bedside as she refused to go to the operating room. She has had 5 days of IV antibiotics and this is her second day on oral antibiotics covering both E. coli and MRSA per sensitivity. I did do a repeat UA and UCS if warranted. She has had a rebound on her white blood cell count and has been persistently high for the second day likely due to continuing hand infection as well as the steroid she is on. The patient was told that the treatment for her cellulitis/abscess is IV/oral antibiotics and repeated irrigation and debridement as needed. Orthopedic will look at the wou nd today and we will get a wound consult as well. I am ordering a follow-up chest x-ray also today. Physical therapy is recommending continue once of therapy and likely will be done in a [facility]. - Problems/Diagnosis (1) Dyspnea Problem: Acute Qualifiers: Dyspnea type: shortness of breath Qualified Code(s): R06.02 - Shortness of breath (2) Elevated brain natriuretic peptide (BNP) level Problem: Acute (3) UTI (urinary tract infection) Problem: Acute (4) Leukocytosis Problem: Acute (5) Cellulitis and abscess of hand Problem: Acute (6) Pulmonary infiltrate in right lung on chest x-ray Problem: Acute (7) CHF (congestive heart failure) Problem: Acute Qualifiers: Heart failure type: right-sided Heart failure chronicity: acute Qualified Code(s): I50.811 - Acute right heart failure (8) Atrial fibrillation Problem: Acute Qualifiers: Atrial fibrillation type: persistent (not longstanding) Qualified Code(s): I48.19 - Other persistent atrial fibrillation (9) Type II diabetes mellitus Problem: Chronic Qualifiers: Diabetes mellitus retirement insulin use: without retirement use Diabetes mellitus complication status: with kidney complications Diabetes mellitus complication detail: with chronic kidney disease Chronic kidney disease stage: stage 3 (moderate) Chronic kidney disease stage 3 subtype: stage 3b (GFR 30- 44) Qualified Code(s): E11.21 - Type 2 diabetes mellitus with diabetic nephropathy; N18.32 - Chronic kidney disease, stage 3b (10) CRF (chronic renal failure) Problem: Chronic Qualifiers: Chronic kidney disease stage: stage 3 (moderate) Chronic kidney disease stage 3 subtype: stage 3b (GFR 30-44) Qualified Code(s): N18.32 - Chronic kidney disease, stage 3b (11) Chronic obstructive pulmonary disease Problem: Chronic Qualifiers: COPD type: COPD with acute exacerbation Qualified Code(s): J44.1 - Chronic obstructive pulmonary disease with (acute) exacerbation (12) Hypertension Problem: Chronic Qualifiers: Hypertension type: essential hypertension Qualified Code(s): I10 - Essential (primary) hypertension
[2020-09-17] MEDS: DORZOLAMIDE HCL 100 DROP BTL OP SCH ×3 (09:54→17:08)
[2020-09-17] MEDS: BRIMONIDINE TARTRATE 50 DROP BTL OP SCH ×2 (09:54→20:33)
[2020-09-17] MEDS: LATANOPROST 25 DROP BTL OP SCH (09:54)
[2020-09-17] MEDS: MONTELUKAST SODIUM 10 MG TABLET PO SCH (09:58)
[2020-09-17] MEDS: APIXABAN 2.5 MG TABLET PO SCH ×2 (09:58→20:34)
[2020-09-17] MEDS: predniSONE 20 MG TABLET PO SCH (09:58)
[2020-09-17] MEDS: FUROSEMIDE 40 MG TABLET PO SCH ×2 (09:59→20:34)
[2020-09-17] MEDS: METOPROLOL TARTRATE 25 MG TABLET PO SCH ×2 (09:59→20:35)
[2020-09-17] MEDS: SPIRONOLACTONE 25 MG TABLET PO SCH (09:59)
[2020-09-17] MEDS: SACCHAROMYCES BOULARDII 250 MG CAPSULE PO SCH ×2 (09:59→21:32)
[2020-09-17] MEDS: LEVOFLOXACIN 750 MG TABLET PO SCH (09:59)
[2020-09-17] MEDS: LISINOPRIL 10 MG TABLET PO SCH (10:00)
[2020-09-17] MEDS: DIGOXIN 0.125 MG TABLET PO SCH (10:00)
--- NOTE | 2020-09-17 11:07 | PN ---
Subjective - Date and Time Seen Date: 09/17/20 Time: 11:05 Subjective Narrative: Alejandra reports she feels her hand feels better. She still does not want to go to surgery to have us address this wound. There is other nursing staff in the room that her work on looking at getting her flu shot at this time. Objective - Vitals Vitals: Last Vital Signs Temp 37.1 C 09/17/20 09:56 Pulse 77 09/17/20 10:00 Resp 24 H 09/17/20 09:56 BP 112/64 09/17/20 10:00 Pulse Ox 95 09/17/20 09:56 - Abnormal Lab Findings Abnormal Lab Findings: Abnormal Lab Results 09/17/20 09/17/20 Range/Units 06:42 07:45 WBC 23.8 H (4.0-10.5) K/mm3 MCHC 31.7 L (32-36) g/dl Neutrophils % (Manual) 89 H (42-75) % Lymphocytes % (Manual) 7 L (20-51) % Neutrophils # (Manual) 21.2 H (1.3-6.0) K/mm3 Urine Protein 15 H (NEGATIVE) mg/dL Urine Blood 50 H (NEGATIVE) /ul Urine Urobilinogen 4 H (NORMAL) EU/dl Ur Leukocyte Esterase 75 H (NEGATIVE) /ul Urine RBC 5-10 H (0-5) /hpf Urine WBC >50 H (0-5) /hpf Ur Epithelial Cells >25 H (0-5) /hpf Urine Bacteria 2+ H (NONE) Urine Comment Culture ordered L - Exam Exam Narrative: Dressings were removed. She still has copious purulent drainage noted from full-thickness dorsal hand wound. Swelling has improved and patient reports mild discomfort with moving her digits in her hand. There is local necrotic tissue as well. Her last temperature reveals she was afebrile at that time. Her white count has been trending back up and is in the 23,000s at this time. Cauti Physician Documentation - Urinary Catheter Management Arrington catheter Date of Insertion: 09/12/20 Time of Insertion: 15:00 Date of Removal: 09/16/20 Time of Removal: 08:50 Assessment/Plan - Problems/Diagnosis (1) Abscess of right hand Problem: Acute Narrative: Discussed with Alejandra that she still has copious amounts of purulent material coming from the wound. Would recommend irrigation and debridement in the surgical setting. She is adamant that she does not want to have surgery. Advised all we can do at this point time would be refer her to the wound center for treatment. They can continue antibiotics. Daily wet-to-dry dressing eric paul. I did apply a new wet-to-dry dressing at this time.
[2020-09-17] MEDS ORDERED: FLU VACC QS2020-21(6MOS UP)/PF 60 MCG/0.5 ML SYRINGE IM ONE (11:30)
--- NOTE | 2020-09-17 13:07 | CONS ---
HPI - General Date of Service: 09/17/20 Source: patient Exam Limitations: other - patient was difficult to understand at times - History of Present Illness Initial Comments: Patient is a 75-year-old female, recently admitted to the hospital regarding shortness of breath elevated BNP and cellulitis. She initially presented to the Emergency Department due to shortness of breath. At that time she noted right hand swelling that developed approximately 2 weeks ago. The patient states she does not relate this to any trauma, such as a pet bite or scratch. However, she does admit to living with several cats in her house. On 09/11/2020, Orthopedics performed a surgical I&D. The patient has since refused any additional surgical debridements. Current dressings include wet to dry gauze, changed daily. Patient describes severe pain associated with manipulation of the wound. Her medical history is notable for COPD, diabetes, chronic renal failure and hypertension. Timing/Duration: changing over time - present possibly two weeks Allergies/Adverse Reactions: Allergies oxytetracycline [From Terramycin] Allergy (Verified 09/10/20 22:18) cleaning supplies Allergy (Uncoded 09/10/20 22:18) detergent Allergy (Uncoded 09/10/20 22:18) erythromycin Allergy (Uncoded 09/10/20 22:18) grasses Allergy (Uncoded 09/10/20 22:18) perfumes Allergy (Uncoded 09/10/20 22:18) Home Medications: Home Medications Medication Instructions Recorded Last Taken albuterol sulfate 0.63 mg/3 mL 0.63 mg IH QID PRN 07/05/18 Unknown solution for nebulization brimonidine 0.15 % eye drops 1 drp OP BID ml 07/05/18 Unknown acetaminophen 325 mg tablet See Rx Instructions PO .COMPLEX PRN 07/06/18 Unknown albuterol sulfate 90 mcg/actuation See Rx Instructions IH .COMPLEX 07/06/18 Unknown aerosol inhaler calcium carbonate 600 mg (1,500 1 tab PO TID 07/06/18 Unknown mg)-vitamin D3 400 unit tablet ipratropium bromide 0.02 % See Rx Instructions IH .COMPLEX 07/06/18 Unknown solution for inhalation latanoprost 0.005 % eye drops 1 drp OP DAILY 07/06/18 Unknown montelukast 10 mg tablet 10 mg PO DAILY #90 tab 07/17/18 Unknown dorzolamide 2 % eye drops 1 drp OP TID 02/21/19 Unknown spironolactone 25 mg tablet 50 mg PO DAILY #180 tab 03/19/20 Unknown furosemide 40 mg tablet See Rx Instructions .ROUTE 03/21/20 Unknown .COMPLEX #180 unspecified prednisone 20 mg tablet 20 mg PO DAILY #90 tab 06/20/20 Unknown amlodipine 10 mg tablet See Rx Instructions .ROUTE 06/27/20 Unknown .COMPLEX #90 unknown measurement unit code: not specified hydrocodone 5 mg-acetaminophen 325 1 tab PO .COMPLEX PRN #90 tab 08/29/20 Unknown mg tablet pioglitazone 15 mg tablet See Rx Instructions .ROUTE 09/01/20 Unknown .COMPLEX #30 unknown measurement unit code: not specified Albuterol Sulfate 2.5 mg INHALATION PRN PRN 09/11/20 Unknown Ascorbate Calcium [Vitamin C] 500 mg PO DAILY 09/11/20 Unknown Ipratropium [place] [Atrovent] 2.5 inh PRN PRN 09/11/20 Unknown Sennosides/Docusate Sodium [Stool 1 tab PO PRN PRN 09/11/20 Unknown Softener-Laxative Tablet] Vitamin A 10,000 unit PO DAILY 09/11/20 Unknown guaiFENesin [Guaifenesin] 1 cap PO PRN PRN 09/11/20 Unknown lisinopril 10 mg tablet See Rx Instructions .ROUTE 09/12/20 Unknown .COMPLEX #90 unknown measurement unit code: not specified Medications - Medications Current Medications: Current Medications Hydrocodone Bitart/Acetaminophen ([place] 5-325) 1 each PO Q6H PRN PRN Reason: pain Stop: 10/11/20 09:13 Last Admin: 09/16/20 17:20 Dose: 1 each Documented by: Albuterol Sulfate (Albuterol Sulfate 2.5 Mg/0.5ml) 2.5 mg IH QID PRN PRN Reason: Shortness Of Breath Stop: 10/11/20 05:37 Last Admin: 09/15/20 13:22 Dose: 2.5 mg Documented by: Albuterol/Ipratropium (Duoneb 2.5-0.5mg/3ml Soln) 3 ml IH Q4HRT PRN PRN Reason: Shortness Of Breath/Wheezing Stop: 10/11/20 10:55 Last Admin: 09/15/20 13:22 Dose: 3 ml Documented by: Apixaban (Eliquis) 2.5 mg PO BID [facility] Stop: 10/11/20 21:01 Last Admin: 09/17/20 09:58 Dose: 2.5 mg Documented by: Brimonidine Tartrate (Alphagan-P 0.15% Ophthalmic Solution) 1 drop OP BID [facility] Stop: 10/11/20 09:16 Last Admin: 09/17/20 09:54 Dose: 1 drop Documented by: Digoxin (Lanoxin) 0.125 mg PO MoWeFr@0900 [facility] Stop: 10/15/20 09:01 Last Admin: 09/17/20 10:00 Dose: 0.125 mg Documented by: Dorzolamide HCl (Trusopt) 1 drop OP TID [facility] Stop: 10/11/20 13:01 Last Admin: 09/17/20 12:27 Dose: 1 drop Documented by: Furosemide (Lasix) 40 mg PO BID [facility] Stop: 10/16/20 09:01 Last Admin: 09/17/20 09:59 Dose: 40 mg Documented by: Insulin Human Lispro (Humalog) 0 - 21 units SC [facility]; Protocol Stop: 10/16/20 12:01 Last Admin: 09/17/20 12:21 Dose: Not Given Documented by: Latanoprost (Xalatan) 1 drop OP DAILY [facility] Stop: 10/11/20 09:16 Last Admin: 09/17/20 09:54 Dose: 1 drop Documented by: Levofloxacin (Levaquin) 750 mg PO DAILY@1100 [facility]; Protocol Stop: 10/16/20 11:01 Last Admin: 09/17/20 09:59 Dose: 750 mg Documented by: Lisinopril (Zestril) 10 mg PO DAILY [facility] Stop: 10/11/20 09:16 Last Admin: 09/17/20 10:00 Dose: 10 mg Documented by: Metoprolol Tartrate (Lopressor) 75 mg PO BID [facility] Stop: 10/12/20 09:01 Last Admin: 09/17/20 09:59 Dose: 75 mg Documented by: Montelukast Sodium (Singulair) 10 mg PO DAILY [facility] Stop: 10/11/20 09:16 Last Admin: 09/17/20 09:58 Dose: 10 mg Documented by: Prednisone (Prednisone) 20 mg PO DAILY [facility] Stop: 10/15/20 09:01 Last Admin: 09/17/20 09:58 Dose: 20 mg Documented by: Saccharomyces Boulardii (Florastor) 250 mg PO BID [facility] Stop: 10/11/20 09:01 Last Admin: 09/17/20 09:59 Dose: 250 mg Documented by: Spironolactone (Aldactone) 50 mg PO DAILY [facility] Stop: 10/15/20 09:01 Last Admin: 09/17/20 09:59 Dose: 50 mg Documented by: Review of Systems - Review of Systems Generalized/Overall Review: Absent: Chills, Fever EENTM: Absent: Nose Congestion Respiratory: Present: Shortness of Breath. Absent: Cough Cardiac: Present: Edema. Absent: Chest Pain Abdominal: Absent: Nausea, Vomiting Musculoskeletal: Present: Muscle Pain Skin: Present: Lesions Physical Examination - Exam Vital Signs: Vital Signs - Last Taken Temp 37.1 C 09/17/20 09:56 Pulse 77 09/17/20 10:00 Resp 24 H 09/17/20 09:56 BP 112/64 09/17/20 10:00 Pulse Ox 95 09/17/20 09:56 O2 Oxygen Delivery Method Nasal Cannula Constitutional: Present: Alert, No distress ENT Exam: Present: hard of hearing Respiratory: Present: no respiratory distress Skin Exam: Present: other - open area on the dorsal aspect of the right hand, measures ~4cm in circumference, depth is undetermined. large amount of drainage. large amount of yellow necrotic tissue present. no bone or tendon visible. mild erythema and moderate swelling of the hand. patient is able to flex and extend fingers. distal circulation and sensation are intact. Eye contact: Present: cooperative - Results and Findings: Lab/Microbiology results last 24 hrs: Abnormal/Pending Laboratory Last 24 HRS 09/17/20 09/17/20 07:45 06:42 WBC 23.8 H MCHC 31.7 L Neutrophils % (Manual) 89 H Lymphocytes % (Manual) 7 L Neutrophils # (Manual) 21.2 H Urine Protein 15 H Urine Blood 50 H Urine Urobilinogen 4 H Ur Leukocyte Esterase 75 H Urine RBC 5-10 H Urine WBC >50 H Ur Epithelial Cells >25 H Urine Bacteria 2+ H Urine Comment Culture ordered L Culture 09/16/20 08:30 Blood Culture - Preliminary Blood NO GROWTH 24 HOURS 09/16/20 07:10 Blood Culture - Preliminary Blood NO GROWTH 24 HOURS - Assessments/Findings (1) Cellulitis and abscess of hand Diagnosis(s): The patient does not tolerate manipulation of the area, due to pain. She has refused the advised surgical debridement. Recommend using Santyl, for enzymatic debridement of the area. This will be applied daily, covered with 4x4 gauze, secured with roll gauze and tape. The area will be washed with soap and water at dressing changes. Problem: Acute
[2020-09-17] MEDS: COLLAGENASE CLOSTRIDIUM HIST. 30 APPL TUBE TP SCH ×2 (13:41→20:58)
[2020-09-17] MEDS: HYDROcodone/ACETAMINOPHEN 1 EACH TABLET PO PRN (17:07)
[2020-09-17] MEDS: INSULIN GLARGINE,HUM.REC.ANLOG 100 UNITS/ML VIAL SC SCH (20:55)
--- NOTE | 2020-09-18 08:30 | PN ---
Subjective - Date and Time Seen Date: 09/18/20 Time: 08:30 Subjective Narrative: The patient says she is feeling better. She has agreed to go to the OR for debridement and of her right hand irrigation infection. Objective - Review of Systems Generalized/Overall Review: Reports: Weakness. Denies: Chills, Fever EENTM: Denies: Blurred Vision Respiratory: Reports: Shortness of Breath, Wheezing - Occasional. Denies: Cough Cardiac: Denies: Chest Pain, Edema, Palpitations Abdominal: Denies: Nausea, Vomiting Genitourinary Symptoms: Denies: Urgency, Frequency Musculoskeletal Complaints: Reports: Joint Pain Neurological: Denies: Headache Skin: Reports: Bruising, Other - Right hand full-thickness ulcer with areas of necrosis Misc: All systems neg except as marked - Vitals Vitals: Last Vital Signs Temp 36.8 C 09/18/20 07:36 Pulse 72 09/18/20 03:00 Resp 20 09/18/20 03:00 BP 115/57 09/18/20 07:36 Pulse Ox 92 L 09/18/20 07:36 - Exam Constitutional: Present: Alert, Oriented x3, Cooperative, Elderly ENT Exam: Present: hearing grossly normal Neck: Present: supple. Absent: lymphadenopathy (R), lymphadenopathy (L) Respiratory: Present: decreased breath sounds, wheezing, No rales Cardiovascular/Chest: Present: no JVD, systolic murmur, irregularly irregular Abdomen: Present: Normal bowel sounds, soft, nontender, nondistended Extremity: Present: no pedal edema, no calf tenderness Cauti Physician Documentation - Urinary Catheter Management [place] catheter Date of Insertion: 09/12/20 Time of Insertion: 15:00 Date of Removal: 09/16/20 Time of Removal: 08:50 Assessment/Plan Plan Narrative: Alejandra was congratulated for making the right decision to go to the operating room now for debridement and irrigation of her right hand infection. Follow-up chest x-ray is no longer showing the suspicious infrahilar right lower lobe infiltrate. Her follow-up urine culture showed no growth. Her white blood cell count is persistently elevated likely due to her right hand infection and steroids. She is going to the OR today for irrigation and debridement of her right hand. Possible discharge to the detention for more physical therapy and continuance of her antibiotic. We have gotten also wound consult clinic and they may need to follow her up on an outpatient basis. - Problems/Diagnosis (1) Dyspnea Problem: Acute Qualifiers: Dyspnea type: shortness of breath Qualified Code(s): R06.02 - Shortness of breath (2) Elevated brain natriuretic peptide (BNP) level Problem: Acute (3) UTI (urinary tract infection) Problem: Resolved (4) Leukocytosis Problem: Acute (5) Cellulitis and abscess of hand Problem: Acute (6) Pulmonary infiltrate in right lung on chest x-ray Problem: Resolved (7) CHF (congestive heart failure) Problem: Resolved Qualifiers: Heart failure type: right-sided Heart failure chronicity: acute Qualified Code(s): I50.811 - Acute right heart failure (8) Atrial fibrillation Problem: Acute Qualifiers: Atrial fibrillation type: persistent (not longstanding) Qualified Code(s): I48.19 - Other persistent atrial fibrillation (9) Type II diabetes mellitus Problem: Chronic Qualifiers: Diabetes mellitus longterm insulin use: without longterm use Diabetes mellitus complication status: with kidney complications Diabetes mellitus co mplication detail: with chronic kidney disease Chronic kidney disease stage: stage 3 (moderate) Chronic kidney disease stage 3 subtype: stage 3b (GFR 30- 44) Qualified Code(s): E11.21 - Type 2 diabetes mellitus with diabetic nephropathy; N18.32 - Chronic kidney disease, stage 3b (10) CRF (chronic renal failure) Problem: Chronic Qualifiers: Chronic kidney disease stage: stage 3 (moderate) Chronic kidney disease stage 3 subtype: stage 3b (GFR 30-44) Qualified Code(s): N18.32 - Chronic kidney disease, stage 3b (11) Chronic obstructive pulmonary disease Problem: Chronic Qualifiers: COPD type: COPD with acute exacerbation Qualified Code(s): J44.1 - Chronic obstructive pulmonary disease with (acute) exacerbation (12) Hypertension Problem: Chronic Qualifiers: Hypertension type: essential hypertension Qualified Code(s): I10 - Essential (primary) hypertension
--- NOTE | 2020-09-18 11:24 | PREOP NOTE ---
Preoperative Progress Note - Preoperative Changes Changes to Preop Condition?: No Changes
[2020-09-18] MEDS: DEXTROSE 5%-0.5 NORMAL SALINE 1,000 ML IV PRN (12:08)
--- NOTE | 2020-09-18 12:15 | ANES ---
Anesthesia Pre Procedure Eval Vitals/Labs: Last Vital Signs Temp 36.6 C 09/18/20 10:16 Pulse 92 09/18/20 10:16 Resp 12 09/18/20 10:16 BP 108/73 09/18/20 10:16 Pulse Ox 95 09/18/20 10:16 HOME MEDICATIONS albuterol sulfate 0.63 mg/3 mL solution for nebulization 0.63 mg IH QID PRN 07/05/18 [Last Taken Unknown] brimonidine 0.15 % eye drops 1 drp OP BID ml 07/05/18 [Last Taken Unknown] acetaminophen 325 mg tablet See Rx Instructions PO .COMPLEX PRN 07/06/18 [Last Taken Unknown] albuterol sulfate 90 mcg/actuation aerosol inhaler See Rx Instructions IH .COMPLEX 07/06/18 [Last Taken Unknown] calcium carbonate 600 mg (1,500 mg)-vitamin D3 400 unit tablet 1 tab PO TID 07/06/18 [Last Taken Unknown] ipratropium bromide 0.02 % solution for inhalation See Rx Instructions IH .COMPLEX 07/06/18 [Last Taken Unknown] latanoprost 0.005 % eye drops 1 drp OP DAILY 07/06/18 [Last Taken Unknown] montelukast 10 mg tablet 10 mg PO DAILY #90 tab 07/17/18 [Last Taken Unknown] dorzolamide 2 % eye drops 1 drp OP TID 02/21/19 [Last Taken Unknown] spironolactone 25 mg tablet 50 mg PO DAILY #180 tab 03/19/20 [Last Taken Unknown] furosemide 40 mg tablet See Rx Instructions .ROUTE .COMPLEX #180 unspecified 03/21/20 [Last Taken Unknown] prednisone 20 mg tablet 20 mg PO DAILY #90 tab 06/20/20 [Last Taken Unknown] amlodipine 10 mg tablet See Rx Instructions .ROUTE .COMPLEX #90 unknown measurement unit code: not specified 06/27/20 [Last Taken Unknown] hydrocodone 5 mg-acetaminophen 325 mg tablet 1 tab PO .COMPLEX PRN #90 tab 08/29/20 [Last Taken Unknown] pioglitazone 15 mg tablet See Rx Instructions .ROUTE .COMPLEX #30 unknown measurement unit code: not specified 09/01/20 [Last Taken Unknown] Albuterol Sulfate 2.5 mg INHALATION PRN PRN 09/11/20 [Last Taken Unknown] Ascorbate Calcium [Vitamin C] 500 mg PO DAILY 09/11/20 [Last Taken Unknown] Ipratropium [place] [Atrovent] 2.5 inh PRN PRN 09/11/20 [Last Taken Unknown] Sennosides/Docusate Sodium [Stool Softener-Laxative Tablet] 1 tab PO PRN PRN 09/11/20 [Last Taken Unknown] Vitamin A 10,000 unit PO DAILY 09/11/20 [Last Taken Unknown] guaiFENesin [Guaifenesin] 1 cap PO PRN PRN 09/11/20 [Last Taken Unknown] lisinopril 10 mg tablet See Rx Instructions .ROUTE .COMPLEX #90 unknown measurement unit code: not specified 09/12/20 [Last Taken Unknown] Allergies/Adverse Reactions: Allergies Allergy/AdvReac Type Severity Reaction Status Date / Time oxytetracycline Allergy Verified 09/10/20 22:18 [From Terramycin] cleaning supplies Allergy Uncoded 09/10/20 22:18 detergent Allergy Uncoded 09/10/20 22:18 erythromycin Allergy Uncoded 09/10/20 22:18 grasses Allergy Uncoded 09/10/20 22:18 perfumes Allergy Uncoded 09/10/20 22:18 - Planned Procedure Planned Procedure: CHF,DYPNEA Medication List Reviewed:: Yes Allergies Verified: Yes Medical History (Last Reviewed 09/18/20 @ 12:11 by Ivan Morel CRNA) Asthma Onset Date: Unknown Chronic obstructive pulmonary disease Onset Date: Unknown Chronic renal failure Onset Date: Unknown Colonoscopy refused Onset Date: Unknown Depression Onset Date: Unknown Diabetes mellitus Onset Date: Unknown Goiter Onset Date: Unknown mutlinodular goiter Hypertension Onset Date: Unknown Hypokalemia Onset Date: Unknown Obesity Onset Date: Unknown Patella fracture Onset Date: 08/2018 left Polio Onset Date: Unknown Primary localized osteoarthrosis, ankle and foot Onset Date: Unknown Respiratory failure, chronic Onset Date: ~2007 significant respiratory failure with hypoxemia and CO2 retention secondary to COPD Surgical History (Last Reviewed 09/18/20 @ 12:11 by Ivan Morel CRNA) Cataract Onset Date: ~1999 [id number] both eyes Encounter for tubal ligation Onset Date: ~1969 History of tonsillectomy Onset Date: ~1950 Family History (Last Reviewed 09/18/20 @ 12:11 by Ivan Morel CRNA) Father , age 82 Alzheimers disease Mother Hypertension Heart disease Breast cancer Skin cancer Borderline diabetes - Family Anesthesia History Family History:: no untoward family reactions to anesthesia, no familial bleeding tendencies, no family history of clotting disorders, no family history of premature - Airway/Neck/Teeth Teeth Condition: missing Denture Type: None Neck Exam: full range of motion Mallampatti Score: 2 Thyromental (T-M) distance: > 6 cm Mandibulo Hyoid distance: > 3 cm - Respiratory Respiratory History: asthma, COPD Respiratory Physical: lungs clear, decreased breath sounds Smoking Status: Current some day smoker Discussed smoking cessation including day of surgery: Yes - last a few days ago Sleep Apnea currently treated: No Sleep Apnea by current assessment: Yes - probable Discussed Risks/Treatment of SILVERIO: Yes - Cardiovascular Cardiac History: arrhythmia, hypertension Tolerate Activity: Poor Heart Sounds: S1 & S2, Regular - Gastrointestinal NPO since: 2399 - Anesthesia Assessment and Plan ASA Class: PS, III Anesthesia Type Plan: MAC
[2020-09-18] MEDS ORDERED: PROPOFOL VIAL IV ONE ×2 (12:52→13:20)
[2020-09-18] MEDS ORDERED: BUPIVACAINE HCL 50 ML VIAL IJ ONE ×2 (13:05→15:08)
[2020-09-18] MEDS ORDERED: LIDOCAINE HCL 20 ML VIAL ONE (13:19)
[2020-09-18] MEDS ORDERED: fentaNYL CITRATE/PF 50 MCG/ML AMPUL ONE (13:19)
[2020-09-18] MEDS ORDERED: ONDANSETRON HCL/PF 2 MG/ML VIAL ONE (13:20)
[2020-09-18] MEDS: LEVOFLOXACIN 750 MG TABLET PO SCH (13:24)
[2020-09-18] MEDS ORDERED: WATER FOR INJ IV ONE (13:30)
[2020-09-18] MEDS ORDERED: VANCOMYCIN IV ONE (13:30)
--- NOTE | 2020-09-18 15:00 | OR ---
Operative Report - Dictated Report Narrative: DATE: 09/18/2020 SURGEON: Luis Savage MD COMMODITY MANAGER: Larry Hawkins PA-C. PREOPERATIVE DIAGNOSIS: Right dorsal hand abscess. POSTOPERATIVE DIAGNOSIS: Right dorsal hand abscess OPERATION PERFORMED: Irrigation and debridement of right dorsal hand abscess ANESTHESIA: General plus local. COMPLICATIONS: None. DRAINS: None. SPECIMENS: Culture to pathology. ESTIMATED BLOOD LOSS: Minimal. INDICATIONS FOR PROCEDURE: Mrs. Hoover is a 75-year-old female with multiple medical comorbidities who was admitted for congestive heart failure and had a noted dorsal hand abscess. This was initially incised at the bedside as she refused surgical intervention and there was noted necrotic tissue as well as fatty and purulent drainage. Dressing changes were done at the bedside if she continued to refuse surgical intervention. She was treated IV antibiotics and was found to be MRSA positive. After multiple discussions about the need for surgical intervention she did finally consent. Risks and benefits as well as long-term plan was discussed. Consent was obtained in the floor. DESCRIPTION OF PROCEDURE: After marking the correct extremity on the floor, the patient was taken to the operating room, timeout was performed. Antibiotics consisting of vancomycin was administered prior to procedure. General nesthetic was induced. The right was then prepped and draped in standard sterile fashion. The dorsal hand wound had noted dehiscence and loss of skin as well as some necrotic skin over approximately a 6 cm diameter. There was noted poor appearing tissues all the way down to tendon. This included skin subcutaneous tissue fat and peritenon. The tendons themselves appear to be intact. There is no exposed bone. The subcutaneous tissue undermined approximately 1 to 2 cm circumferentially. This tissue was noted to be necrotic as well. There is no significant malodor. Once is felt that we excised the poor appearing tissue with a scalpel, tenotomy's, and mechanical debridement with a gauze sponge, 6 L of irrigant was placed through the wounds. The remaining tissue appeared viable and was bleeding. In my opinion this appears to be more of a venomous type insect bite and a localized abscess. The skin was reapproximated in order to prevent further gapping with interrupted 3-0 nylon, Xeroform, 4 x 4, and a well- padded volar splint was applied. The patient was then awoken and transferred to postanesthesia care unit in stable condition. All sponge, needle and instrument counts were correct prior to closing wounds.
--- NOTE | 2020-09-18 15:21 | ANES ---
Post Anesthesia Discharge - Transfer of Care Transfer of Care handoff given to nurse: Yes - Discharge from PACU Discharge from PACU when meets criteria: Yes
--- NOTE | 2020-09-18 15:21 | ANES ---
Post Anesthesia Assessment - Vital Signs Vitals: Last Vital Signs Temp 36.6 C 09/18/20 10:16 Pulse 92 09/18/20 10:16 Resp 12 09/18/20 10:16 BP 108/73 09/18/20 10:16 Pulse Ox 95 09/18/20 10:16 Airway Patency: Normal - Mental Status Level Of Consciousness: Drowsy - Pain Level Pain Score: 0 - N/V Assessment Nausea/Vomiting Presence: None Dehydration:: No
[2020-09-18] MEDS: INSULIN LISPRO 100 UNITS/ML VIAL SC SCH ×2 (15:32→17:52)
[2020-09-18] MEDS: HYDROcodone/ACETAMINOPHEN 1 EACH TABLET PO PRN (15:38)
[2020-09-18] MEDS: LATANOPROST 25 DROP BTL OP SCH (15:40)
[2020-09-18] MEDS: BRIMONIDINE TARTRATE 50 DROP BTL OP SCH ×2 (15:41→20:54)
[2020-09-18] MEDS: DORZOLAMIDE HCL 100 DROP BTL OP SCH ×3 (15:41→17:52)
[2020-09-18] MEDS: METOPROLOL TARTRATE 25 MG TABLET PO SCH ×2 (15:41→20:59)
[2020-09-18] MEDS: APIXABAN 2.5 MG TABLET PO SCH ×2 (15:42→20:55)
[2020-09-18] MEDS: SACCHAROMYCES BOULARDII 250 MG CAPSULE PO SCH ×2 (15:42→20:56)
[2020-09-18] MEDS: LISINOPRIL 10 MG TABLET PO SCH (15:42)
[2020-09-18] MEDS: FUROSEMIDE 40 MG TABLET PO SCH ×2 (15:43→20:55)
[2020-09-18] MEDS: SPIRONOLACTONE 25 MG TABLET PO SCH (15:44)
[2020-09-18] MEDS: predniSONE 20 MG TABLET PO SCH (15:44)
[2020-09-18] MEDS: MONTELUKAST SODIUM 10 MG TABLET PO SCH (15:44)
[2020-09-18] MEDS: COLLAGENASE CLOSTRIDIUM HIST. 30 APPL TUBE TP SCH ×2 (15:51→20:58)
[2020-09-18] MEDS: INSULIN GLARGINE,HUM.REC.ANLOG 100 UNITS/ML VIAL SC SCH (20:56)
[2020-09-19 07:01] LABS: Hematocrit 42.7 % (37.0-47.0); Hemoglobin 13.6 gm/dL (12.5-16.0); Mean Cell Volume 92.8 fl (78-100); Mean Corpuscular Hemoglobin 29.6 pg (27-31); Mean Corpuscular Hgb Conc 31.9 g/dl (32-36); Mean Platelet Volume 9.2 fl (8-12.5); Platelet Count 384 K/mm3 (150-450); Red Cell Distribution Width 14.3 % (11.5-14.0); White Blood Count 25.8 K/mm3 (4.0-10.5)
[2020-09-19] MEDS: INSULIN LISPRO 100 UNITS/ML VIAL SC SCH ×3 (07:03→18:07)
[2020-09-19 07:04] LABS: Total Cells Counted 100
[2020-09-19] MEDS: HYDROcodone/ACETAMINOPHEN 1 EACH TABLET PO PRN ×2 (07:05→16:28)
[2020-09-19 07:25] LABS: Anion Gap 6.7 mmol/L (6.8-13.8); BUN/Creatinine Ratio 54.7 (9.0-21.6); CRP 3.2 mg/dL (0.0-0.9); Calcium * 9.2 mg/dL (7.9-10.9); Estimated Creat Clear 44.7; Potassium 3.7 mmol/L (3.4-4.6)
[2020-09-19 07:34] LABS: Lymphocyte 7 % (20-51); Monocyte 4 % (0-9); Neutrophil 89 % (42-75); Platelet Estimate Normal (NORMAL)
[2020-09-19 07:37] LABS: RBC Morphology Normal (NORMAL)
--- NOTE | 2020-09-19 08:31 | PN ---
Subjective - Date and Time Seen Date: 09/19/20 Time: 08:29 Subjective Narrative: patient had debridement and irrigation in the OR for the 1st time after consenting to it finally.. WBC is 25. Objective - Review of Systems Generalized/Overall Review: Reports: Weakness. Denies: Chills, Fever EENTM: Denies: Blurred Vision Respiratory: Reports: Cough, Shortness of Breath, Wheezing - Occasional Cardiac: Reports: Edema. Denies: Chest Pain, Palpitations Abdominal: Denies: Nausea, Vomiting Genitourinary Symptoms: Denies: Urgency, Frequency Musculoskeletal Complaints: Reports: Joint Pain Misc: All systems neg except as marked - Vitals Vitals: Last Vital Signs Temp 36.8 C 09/19/20 06:56 Pulse 90 09/19/20 07:00 Resp 16 09/19/20 06:56 BP 97/54 09/19/20 06:56 Pulse Ox 98 09/19/20 06:56 - Abnormal Lab Findings Abnormal Lab Findings: Abnormal Lab Results 09/19/20 09/19/20 09/19/20 Range/Units 06:23 06:23 06:23 WBC 25.8 H (4.0-10.5) K/mm3 MCHC 31.9 L (32-36) g/dl RDW 14.3 H (11.5-14.0) % Neutrophils % (Manual) 89 H (42-75) % Lymphocytes % (Manual) 7 L (20-51) % Neutrophils # (Manual) 23.0 H (1.3-6.0) K/mm3 ESR 33 H (0-15) mm/hr Carbon Dioxide 35.0 H (24-32.6) mmol/L Anion Gap 6.7 L (6.8-13.8) mmol/L BUN 47 H (3-23) mg/dL BUN/Creatinine Ratio 54.7 H (9.0-21.6) Random Glucose 64 L (70-110) mg/dL C-Reactive Prot, Quant 3.2 H (0.0-0.9) mg/dL - Exam Constitutional: Present: Alert, Oriented x3, Cooperative, Elderly ENT Exam: Present: hearing grossly normal Neck: Present: supple. Absent: lymphadenopathy (R), lymphadenopathy (L) Respiratory: Present: decreased breath sounds, wheezing - Occasional, No rales Cardiovascular/Chest: Present: no JVD, systolic murmur, irregularly irregular Abdomen: Present: Normal bowel sounds, soft, nontender, nondistended Extremity: Present: no calf tenderness, pedal edema, other - right hand bandaged, dry Cauti Physician Documentation - Urinary Catheter Management Arrington catheter Date of Insertion: 09/12/20 Time of Insertion: 15:00 Date of Removal: 09/16/20 Time of Removal: 08:50 Assessment/Plan Plan Narrative: Alejandra Hoover was admitted for shortness of breath and edema and was found to have right-sided heart failure from cor pulmonale with severe pulmonary hypertension. She was also found to have cellulitis and abscess of her right hand and underwent incision and drainage at bedside as patient refused to go to the operating room for more formal debridement and irrigation. She was started on IV antibiotics and was diuresed. She grew MRSA on her wound culture and E. coli on her urinalysis. She also had a suspicious infiltrate on her right infrahilar lower lung field which was also treated with IV antibiotics. Her UTI and her possible pneumonia have resolved however her WBC bumpded up again secondary to her hand infection and steroids. She continued to refuse to go to the OR for debridement and irrgation and so she was transitioned to oral antibiotics, Levaquin per sensisitivty and for its very good oral bioavailabilty, in preparation for discharge with wound clinic consult. She then agreed to to have a formal debridement and irrigation in the OR and had it yesterday afternoon. Will restart IV antibiotics and await follow up culture done in the OR. Her urine C & S is growing yeast less than 10,000 probably colonization. She has been having low blood sugar in the morning and will decrease her lantus to 5 units and change lispro to low dose protocol. We will adjust it back up again if her BS start to go up again. Will also decrease her prednosone to 10 mg PO q daily. - Problems/Diagnosis (1) Leukocytosis Problem: Acute (2) Cellulitis and abscess of hand Problem: Acute (3) Dyspnea Problem: Acute Qualifiers: Dyspnea type: shortness of breath Qualified Code(s): R06.02 - Shortness of breath (4) Elevated brain natriuretic peptide (BNP) level Problem: Acute (5) UTI (urinary tract infection) Problem: Resolved (6) Pulmonary infiltrate in right lung on chest x-ray Problem: Resolved (7) CHF (congestive heart failure) Problem: Resolved Qualifiers: Heart failure type: right-sided Heart failure chronicity: acute Qualified Code(s): I50.811 - Acute right heart failure (8) Atrial fibrillation Problem: Acute Qualifiers: Atrial fibrillation type: persistent (not longstanding) Qualified Code(s): I48.19 - Other persistent atrial fibrillation (9) Type II diabetes mellitus Problem: Chronic Qualifiers: Diabetes mellitus shelter insulin use: without shelter use Diabetes mellitus complication status: with kidney complications Diabetes mellitus complication detail: with chronic kidney disease Chronic kidney disease stage: stage 3 (moderate) Chronic kidney disease stage 3 subtype: stage 3b (GFR 30- 44) Qualified Code(s): E11.21 - Type 2 diabetes mellitus with diabetic nephropathy; N18.32 - Chronic kidney disease, stage 3b (10) CRF (chronic renal failure) Problem: Chronic Qualifiers: Chronic kidney disease stage: stage 3 (moderate) Chronic kidney disease stage 3 subtype: stage 3b (GFR 30-44) Qualified Code(s): N18.32 - Chronic kidney disease, stage 3b (11) Chronic obstructive pulmonary disease Problem: Chronic Qualifiers: COPD type: COPD with acute exacerbation Qualified Code(s): J44.1 - Chronic obstructive pulmonary disease with (acute) exacerbation (12) Hypertension Problem: Chronic Qualifiers: Hypertension type: essential hypertension Qualified Code(s): I10 - Essential (primary) hypertension
[2020-09-19] MEDS: BRIMONIDINE TARTRATE 50 DROP BTL OP SCH ×2 (08:51→20:09)
[2020-09-19] MEDS: COLLAGENASE CLOSTRIDIUM HIST. 30 APPL TUBE TP SCH ×2 (08:52→20:26)
[2020-09-19] MEDS: DIGOXIN 0.125 MG TABLET PO SCH (08:52)
[2020-09-19] MEDS: DORZOLAMIDE HCL 100 DROP BTL OP SCH ×3 (08:52→16:28)
[2020-09-19] MEDS: LATANOPROST 25 DROP BTL OP SCH (08:52)
[2020-09-19] MEDS: SPIRONOLACTONE 25 MG TABLET PO SCH (09:15)
[2020-09-19] MEDS: APIXABAN 2.5 MG TABLET PO SCH ×2 (09:15→20:09)
[2020-09-19] MEDS: SACCHAROMYCES BOULARDII 250 MG CAPSULE PO SCH ×2 (09:16→20:10)
[2020-09-19] MEDS: FUROSEMIDE 40 MG TABLET PO SCH ×2 (09:16→20:13)
[2020-09-19] MEDS: MONTELUKAST SODIUM 10 MG TABLET PO SCH (09:17)
[2020-09-19] MEDS: LISINOPRIL 10 MG TABLET PO SCH (09:17)
[2020-09-19] MEDS: METOPROLOL TARTRATE 25 MG TABLET PO SCH ×2 (09:17→20:14)
[2020-09-19] MEDS: predniSONE 20 MG TABLET PO SCH (09:22)
[2020-09-19] MEDS: CLINDAMYCIN IN 0.9 % SOD CHLOR 600 MG/50 ML BAG IV SCH ×2 (12:11→20:09)
--- NOTE | 2020-09-19 12:14 | PN ---
Subjective - Date and Time Seen Date: 09/19/20 Time: 07:45 Subjective Narrative: She reports her pain is improved. no issues last night RUE - moving fingers, noted edema, dressings clean and dry sensation stable, brisk CR Objective - Vitals Vitals: Last Vital Signs Temp 36.4 C 09/19/20 10:05 Pulse 92 09/19/20 10:05 Resp 18 09/19/20 10:05 BP 104/52 09/19/20 10:05 Pulse Ox 97 09/19/20 10:05 - Abnormal Lab Findings Abnormal Lab Findings: Abnormal Lab Results 09/19/20 09/19/20 09/19/20 Range/Units 06:23 06:23 06:23 WBC 25.8 H (4.0-10.5) K/mm3 MCHC 31.9 L (32-36) g/dl RDW 14.3 H (11.5-14.0) % Neutrophils % (Manual) 89 H (42-75) % Lymphocytes % (Manual) 7 L (20-51) % Neutrophils # (Manual) 23.0 H (1.3-6.0) K/mm3 ESR 33 H (0-15) mm/hr Carbon Dioxide 35.0 H (24-32.6) mmol/L Anion Gap 6.7 L (6.8-13.8) mmol/L BUN 47 H (3-23) mg/dL BUN/Creatinine Ratio 54.7 H (9.0-21.6) Random Glucose 64 L (70-110) mg/dL C-Reactive Prot, Quant 3.2 H (0.0-0.9) mg/dL Cauti Physician Documentation - Urinary Catheter Management Arrington catheter Date of Insertion: 09/12/20 Time of Insertion: 15:00 Date of Removal: 09/16/20 Time of Removal: 08:50 Assessment/Plan - Problems/Diagnosis (1) Abscess of right hand excluding fingers and thumb Problem: Acute Narrative: Based on the findings over time, i have some concern that this is a venom/insect bite type of wound - there was noted necrosis. She will eventually need a skin graft as she has lost a 5-6 cm diameter full thickness defect over the extensor tendons. I would like to continue BID moist-dry dressings and antibiotics. Can evaluate for placement if needed and continue dressing changes and will assess for skin grafting in a week or so.
[2020-09-20] MEDS: CLINDAMYCIN IN 0.9 % SOD CHLOR 600 MG/50 ML BAG IV SCH ×4 (00:26→19:21)
[2020-09-20] MEDS: HYDROcodone/ACETAMINOPHEN 1 EACH TABLET PO PRN ×3 (01:57→17:42)
[2020-09-20] MEDS: INSULIN LISPRO 100 UNITS/ML VIAL SC SCH ×3 (06:51→17:51)
[2020-09-20 08:01] LABS: Hematocrit 42.3 % (37.0-47.0); Hemoglobin 13.1 gm/dL (12.5-16.0); Mean Cell Volume 93.8 fl (78-100); Mean Platelet Volume 9.2 fl (8-12.5); Platelet Count 405 K/mm3 (150-450); Red Blood Count 4.51 M/mm3 (4.2-5.4); Red Cell Distribution Width 14.5 % (11.5-14.0); White Blood Count 18.6 K/mm3 (4.0-10.5)
[2020-09-20] MEDS: COLLAGENASE CLOSTRIDIUM HIST. 30 APPL TUBE TP SCH ×2 (08:14→21:11)
[2020-09-20] MEDS: SACCHAROMYCES BOULARDII 250 MG CAPSULE PO SCH ×2 (08:25→21:02)
[2020-09-20] MEDS: APIXABAN 2.5 MG TABLET PO SCH ×2 (08:25→21:02)
[2020-09-20] MEDS: SPIRONOLACTONE 25 MG TABLET PO SCH (08:25)
[2020-09-20] MEDS: FUROSEMIDE 40 MG TABLET PO SCH ×2 (08:26→21:39)
[2020-09-20] MEDS: predniSONE 10 MG TABLET PO SCH (08:26)
[2020-09-20] MEDS: MONTELUKAST SODIUM 10 MG TABLET PO SCH (08:26)
[2020-09-20] MEDS: METOPROLOL TARTRATE 25 MG TABLET PO SCH ×2 (08:26→22:04)
[2020-09-20] MEDS: LISINOPRIL 10 MG TABLET PO SCH (08:27)
[2020-09-20] MEDS: BRIMONIDINE TARTRATE 50 DROP BTL OP SCH ×2 (08:27→21:01)
[2020-09-20] MEDS: LATANOPROST 25 DROP BTL OP SCH (08:28)
[2020-09-20] MEDS: DORZOLAMIDE HCL 100 DROP BTL OP SCH ×3 (08:28→16:02)
[2020-09-20 09:02] LABS: Total Cells Counted 100
--- NOTE | 2020-09-20 09:23 | PN ---
Subjective - Date and Time Seen Date: 09/20/20 Time: 09:18 Subjective Narrative: Doesn't have much appetite. Needs help eating. Can sometimes walk to the bathroom. No dyspnea. Doesn't want pain med raised, but is still having pain. Objective - Review of Systems Generalized/Overall Review: Denies: Fever Cardiac: Denies: Chest Pain Abdominal: Reports: Other - decreased appetite. Denies: Vomiting Genitourinary Symptoms: Reports: No Symptoms Reported Musculoskeletal Complaints: Reports: Other - right hand pain Neurological: Reports: Depressed - Vitals Vitals: Last Vital Signs Temp 36.0 C 09/20/20 06:54 Pulse 67 09/20/20 08:27 Resp 22 H 09/20/20 06:54 BP 109/62 09/20/20 08:27 Pulse Ox 90 L 09/20/20 06:54 - Abnormal Lab Findings Abnormal Lab Findings: Abnormal Lab Results 09/20/20 Range/Units 07:43 WBC 18.6 H D (4.0-10.5) K/mm3 MCHC 31.0 L (32-36) g/dl RDW 14.5 H (11.5-14.0) % - Exam Constitutional: Present: Alert, Cooperative, Elderly Respiratory: Present: lungs clear, decreased breath sounds Cardiovascular/Chest: Present: regular rate, rhythm Abdomen: Present: soft, nontender Extremity: Present: other - Right hand and wrist bandaged. Finger swelling, erythema next to bandage. can move fingers, sensation intact. SCDs in place Eye contact: Present: cooperative, good eye contact Cauti Physician Documentation - Urinary Catheter Management Arrington catheter Date of Insertion: 09/12/20 Time of Insertion: 15:00 Date of Removal: 09/16/20 Time of Removal: 08:50 Assessment/Plan Plan Narrative: WBC is improving, after consenting to I&D, most recent two days ago. She is having some hand pain, but does not want her pain meds increased. Placement pending for after discharge. For her diabetes, she is not eating much, and was having multiple low glucose readings, so I am holding her 5 U lantus. She is oxygenating on her home 4 L O2. She is growing a very low colony count of yeast in her urine - no treatment needed. Funguria is common in hospitalized patients and usually benign. - Problems/Diagnosis (1) Abscess of right hand excluding fingers and thumb Problem: Acute (2) Atrial fibrillation Problem: Acute Qualifiers: Atrial fibrillation type: persistent (not longstanding) Qualified Code(s): I48.19 - Other persistent atrial fibrillation (3) CRF (chronic renal failure) Problem: Chronic Qualifiers: Chronic kidney disease stage: stage 3 (moderate) Chronic kidney disease stage 3 subtype: stage 3b (GFR 30-44) Qualified Code(s): N18.32 - Chronic kidney disease, stage 3b (4) Type II diabetes mellitus Problem: Chronic Qualifiers: Diabetes mellitus prison insulin use: without terminal manager use Diabetes mellitus complication status: with kidney complications Diabetes mellitus complication detail: with chronic kidney disease Chronic kidney disease stage: stage 3 (moderate) Qualified Code(s): E11.22 - Type 2 diabetes mellitus with diabetic chronic kidney disease (5) Chronic obstructive pulmonary disease Problem: Chronic Qualifiers: COPD type: COPD with acute exacerbation Qualified Code(s): J44.1 - Chronic obstructive pulmonary disease with (acute) exacerbation (6) Hypertension Problem: Chronic Qualifiers: Hypertension type: essential hypertension Qualified Code(s): I10 - Essential (primary) hypertension Narrative: BP is low, so will decrease her lisinopril dose to 5 mg.
[2020-09-20 09:31] LABS: Band 4 % (0-2.0); Lymphocyte 11 % (20-51); Monocyte 10 % (0-9); Neutrophil 75 % (42-75); Platelet Estimate Normal (NORMAL); RBC Morphology Normal (NORMAL)
[2020-09-20] MEDS ORDERED: NORMAL SALINE 500 ML IV ONE ×2 (14:55→17:36)
[2020-09-20] MEDS: DEXTROSE 5%-0.5 NORMAL SALINE 1,000 ML IV PRN (19:56)
[2020-09-20] MEDS: INSULIN GLARGINE,HUM.REC.ANLOG 100 UNITS/ML VIAL SC SCH (21:09)
[2020-09-21] MEDS: CLINDAMYCIN IN 0.9 % SOD CHLOR 600 MG/50 ML BAG IV SCH ×4 (01:35→18:33)
[2020-09-21] MEDS: HYDROcodone/ACETAMINOPHEN 1 EACH TABLET PO PRN ×4 (01:41→23:17)
[2020-09-21] MEDS: DEXTROSE 5%-0.5 NORMAL SALINE 1,000 ML IV PRN ×2 (06:23→15:15)
[2020-09-21] MEDS: INSULIN LISPRO 100 UNITS/ML VIAL SC SCH ×3 (07:20→16:54)
[2020-09-21] MEDS: MONTELUKAST SODIUM 10 MG TABLET PO SCH (08:44)
[2020-09-21] MEDS: APIXABAN 2.5 MG TABLET PO SCH ×2 (08:45→21:07)
[2020-09-21] MEDS: SACCHAROMYCES BOULARDII 250 MG CAPSULE PO SCH ×2 (08:45→21:08)
[2020-09-21] MEDS: SPIRONOLACTONE 25 MG TABLET PO SCH (08:46)
[2020-09-21] MEDS: FUROSEMIDE 40 MG TABLET PO SCH ×2 (08:47→21:08)
[2020-09-21] MEDS: predniSONE 10 MG TABLET PO SCH (08:47)
[2020-09-21] MEDS: COLLAGENASE CLOSTRIDIUM HIST. 30 APPL TUBE TP SCH ×2 (08:48→21:04)
[2020-09-21] MEDS: BRIMONIDINE TARTRATE 50 DROP BTL OP SCH ×2 (08:48→21:07)
[2020-09-21] MEDS: DORZOLAMIDE HCL 100 DROP BTL OP SCH ×3 (08:48→16:56)
[2020-09-21] MEDS: LATANOPROST 25 DROP BTL OP SCH (08:49)
--- NOTE | 2020-09-21 10:35 | PN ---
Subjective - Date and Time Seen Date: 09/21/20 Time: 09:30 Subjective Narrative: She feels like her hand is looking good. She had some asymptomatic low blood pressure yesterday evening, which responded well to fluids. Appetite still limited. Objective - Review of Systems Generalized/Overall Review: Denies: Fever Respiratory: Denies: Shortness of Breath Cardiac: Reports: No Symptoms Reported Abdominal: Reports: No Symptoms Reported Genitourinary Symptoms: Reports: No Symptoms Reported Musculoskeletal Complaints: Reports: Back Pain, Other - right hand pain Neurological: Reports: No Symptoms Reported Skin: Reports: Other - abscess of right hand - Vitals Vitals: Last Vital Signs Temp 36.5 C 09/21/20 07:49 Pulse 66 09/21/20 08:47 Resp 22 H 09/21/20 07:49 BP 100/55 09/21/20 08:47 Pulse Ox 94 09/21/20 07:49 - Exam Constitutional: Present: Alert, No distress, Elderly Respiratory: Present: decreased breath sounds, other - using baseline 4 L O2 via NC Cardiovascular/Chest: Present: regular rate, rhythm Abdomen: Present: soft, nontender Extremity: Present: other - right hand and wrist bandaged Skin Exam: Present: other - mild edema of right fingers, no visible erythema Neurologic: Present: alert Appearance: Present: appropriate insight Eye contact: Present: cooperative, good eye contact Cauti Physician Documentation - Urinary Catheter Management Arrington catheter Date of Insertion: 09/12/20 Time of Insertion: 15:00 Date of Removal: 09/16/20 Time of Removal: 08:50 Assessment/Plan Plan Narrative: Her hand appears to be improving after I&D and IV cleocin. Wound cultures growing MRSA, sensitive to clindamycin. She had low BP yesterday evening, but her po intake has been poor, and the ordered IV fluids had not been given. Her BP has improved since these were restarted. She still is not eating or drinking well, however, so will continue IV fluids, but at a lower rate of 75 cc/hr. Antihypertensives held yesterday for her low BP. Since she had difficulty with afib on admission, will resume metoprolol, but continue to hold the lisinopril. She still has pain, but does not want an increased dose of pain meds. Respiratory status is at her baseline. - Problems/Diagnosis (1) Abscess of right hand excluding fingers and thumb Problem: Acute (2) Atrial fibrillation Problem: Acute Qualifiers: Atrial fibrillation type: persistent (not longstanding) Qualified Code(s): I48.19 - Other persistent atrial fibrillation (3) CRF (chronic renal failure) Problem: Chronic Qualifiers: Chronic kidney disease stage: stage 3 (moderate) Chronic kidney disease stage 3 subtype: stage 3b (GFR 30-44) Qualified Code(s): N18.32 - Chronic kidney disease, stage 3b (4) Type II diabetes mellitus Problem: Chronic Qualifiers: Diabetes mellitus nursing home insulin use: without nursing home use Diabetes mellitus complication status: with kidney complications Diabetes mellitus complication detail: with chronic kidney disease Chronic kidney disease stage: stage 3 (moderate) Qualified Code(s): E11.22 - Type 2 diabetes mellitus with diabetic chronic kidney disease (5) Chronic obstructive pulmonary disease Problem: Chronic Qualifiers: COPD type: COPD with acute exacerbation Qualified Code(s): J44.1 - Chronic obstructive pulmonary disease with (acute) exacerbation (6) Hypertension Problem: Chronic Qualifiers: Hypertension type: essential hypertension Qualified Code(s): I10 - Essential (primary) hypertension
--- NOTE | 2020-09-21 11:48 | PN ---
Subjective - Date and Time Seen Date: 09/21/20 Time: 11:46 Subjective Narrative: Patient in no acute distress. She notes no acute events. Notes over all her pain continues to decrease. Objective - Vitals Vitals: Last Vital Signs Temp 36.5 C 09/21/20 11:22 Pulse 71 09/21/20 11:22 Resp 14 09/21/20 11:22 BP 104/52 09/21/20 11:22 Pulse Ox 92 L 09/21/20 11:22 - Exam Constitutional: Present: Alert, Cooperative Extremity: Present: other - Right upper extremity--> dressings clean/dry/intact, sensation intact light touch, mild erythema at distal dressings, diffuse mild edema Cauti Physician Documentation - Urinary Catheter Management Arrington catheter Date of Insertion: 09/12/20 Time of Insertion: 15:00 Date of Removal: 09/16/20 Time of Removal: 08:50 Assessment/Plan Plan Narrative: -75-year-old female 3 days postoperative from I&D and wound debridement of right hand ulceration -We will continue with twice daily moist to dry dressing changes. Continue to monitor overall wound healing based on surgeon recommendations will reevaluate at 1 week to determine further care. Possibility of skin grafting. -Chronic medical conditions per medicine team - Problems/Diagnosis (1) Cellulitis and abscess of hand Problem: Acute
[2020-09-21] MEDS: INSULIN GLARGINE,HUM.REC.ANLOG 100 UNITS/ML VIAL SC SCH (21:06)
[2020-09-21] MEDS: METOPROLOL TARTRATE 25 MG TABLET PO SCH (21:13)
[2020-09-21] MEDS: ALBUTEROL SULFATE/IPRATROPIUM 3 ML NEBU IH PRN (23:40)
[2020-09-22] MEDS: CLINDAMYCIN IN 0.9 % SOD CHLOR 600 MG/50 ML BAG IV SCH ×4 (01:07→18:57)
[2020-09-22 06:25] LABS: Hemoglobin 11.6 gm/dL (12.5-16.0); Mean Cell Volume 94.3 fl (78-100); Mean Corpuscular Hemoglobin 28.8 pg (27-31); Mean Corpuscular Hgb Conc 30.5 g/dl (32-36); Platelet Count 395 K/mm3 (150-450); Red Blood Count 4.03 M/mm3 (4.2-5.4); Red Cell Distribution Width 14.5 % (11.5-14.0); White Blood Count 15.6 K/mm3 (4.0-10.5)
[2020-09-22 06:28] LABS: Total Cells Counted 100
[2020-09-22 06:38] LABS: Albumin * 2.1 gm/dl (3.4-5.0); Anion Gap 8.4 mmol/L (6.8-13.8); BUN/Creatinine Ratio 43.2 (9.0-21.6); Bilirubin, Total 0.5 mg/dL (0.0-1.1); Ca. Corrected For Albumin 9.4 mg/dL (8.4-10.2); Calcium * 8.2 mg/dL (7.9-10.9); Carbon Dioxide 32.2 mmol/L (24-32.6); Potassium 3.6 mmol/L (3.4-4.6)
[2020-09-22] MEDS: ALBUTEROL SULFATE 2.5 MG/0.5 ML VIAL.NEB IH PRN (06:47)
[2020-09-22 06:54] LABS: Lymphocyte 12 % (20-51); Monocyte 7 % (0-9); Neutrophil 81 % (42-75); Neutrophil # 12.6 K/mm3 (1.3-6.0); Platelet Estimate Normal (NORMAL); RBC Morphology Normal (NORMAL)
[2020-09-22] MEDS ORDERED: FUROSEMIDE 10 MG/ML VIAL IV ONE ×2 (07:29→15:36)
[2020-09-22] MEDS: INSULIN LISPRO 100 UNITS/ML VIAL SC SCH ×3 (07:40→17:06)
[2020-09-22] MEDS: MONTELUKAST SODIUM 10 MG TABLET PO SCH (08:38)
[2020-09-22] MEDS: APIXABAN 2.5 MG TABLET PO SCH ×2 (08:38→20:40)
[2020-09-22] MEDS: DIGOXIN 0.125 MG TABLET PO SCH (08:38)
[2020-09-22] MEDS: SACCHAROMYCES BOULARDII 250 MG CAPSULE PO SCH ×2 (08:38→20:40)
[2020-09-22] MEDS: LATANOPROST 25 DROP BTL OP SCH (08:39)
[2020-09-22] MEDS: BRIMONIDINE TARTRATE 50 DROP BTL OP SCH ×2 (08:39→20:39)
[2020-09-22] MEDS: DORZOLAMIDE HCL 100 DROP BTL OP SCH ×3 (08:39→17:07)
[2020-09-22] MEDS: predniSONE 20 MG TABLET PO SCH (08:42)
[2020-09-22] MEDS: FUROSEMIDE 40 MG TABLET PO SCH ×2 (08:44→20:40)
[2020-09-22] MEDS: METOPROLOL TARTRATE 25 MG TABLET PO SCH ×2 (08:44→20:40)
[2020-09-22] MEDS: SPIRONOLACTONE 25 MG TABLET PO SCH (08:45)
[2020-09-22] MEDS: COLLAGENASE CLOSTRIDIUM HIST. 30 APPL TUBE TP SCH (09:33)
--- NOTE | 2020-09-22 12:04 | PN ---
Subjective - Date and Time Seen Date: 09/22/20 Time: 12:03 Subjective Narrative: saw the patient this morning. had acute respiratory distress- likey fluid overload. Objective - Review of Systems Generalized/Overall Review: Reports: Weakness. Denies: Chills, Fever EENTM: Denies: Blurred Vision Respiratory: Reports: Cough, Shortness of Breath, Wheezing Cardiac: Denies: Chest Pain, Edema, Palpitations Abdominal: Denies: Nausea, Vomiting Genitourinary Symptoms: Denies: Urgency, Frequency Musculoskeletal Complaints: Reports: Joint Pain Neurological: Reports: Anxiety Skin: Reports: Bruising. Denies: Lesions Misc: All systems neg except as marked - Vitals Vitals: Last Vital Signs Temp 36.4 C 09/22/20 10:33 Pulse 77 09/22/20 11:04 Resp 38 H 09/22/20 11:04 BP 108/60 09/22/20 10:33 Pulse Ox 93 09/22/20 11:04 - Abnormal Lab Findings Abnormal Lab Findings: Abnormal Lab Results 09/22/20 09/22/20 09/22/20 Range/Units 06:12 06:12 07:34 WBC 15.6 H (4.0-10.5) K/mm3 RBC 4.03 L (4.2-5.4) M/mm3 Hgb 11.6 L (12.5-16.0) gm/dL MCHC 30.5 L (32-36) g/dl RDW 14.5 H (11.5-14.0) % Neutrophils % (Manual) 81 H (42-75) % Lymphocytes % (Manual) 12 L (20-51) % Neutrophils # (Manual) 12.6 H (1.3-6.0) K/mm3 Monocytes # (Manual) 1.1 H (0.0-1.0) k/mm3 pCO2 57.0 H (32.0-45.0) mmHg pO2 47.1 L (83.0-108.0) mmHg HCO3 31.0 H (21.0-28.0) mmol/L Total CO2 32.8 H (19.0-24.0) mmol/L Base Excess 4.1 H (-2.0-3.0) mmol/L ABG O2 Sat (Measured) 80.2 L (94.0-98.0) % BUN 35 H (3-23) mg/dL BUN/Creatinine Ratio 43.2 H (9.0-21.6) Random Glucose 112 H D (70-110) mg/dL Total Protein 5.0 L (6.2-8.2) gm/dL Albumin 2.1 L (3.4-5.0) gm/dl 09/22/20 Range/Units 08:46 WBC (4.0-10.5) K/mm3 RBC (4.2-5.4) M/mm3 Hgb (12.5-16.0) gm/dL MCHC (32-36) g/dl RDW (11.5-14.0) % Neutrophils % (Manual) (42-75) % Lymphocytes % (Manual) (20-51) % Neutrophils # (Manual) (1.3-6.0) K/mm3 Monocytes # (Manual) (0.0-1.0) k/mm3 pCO2 56.2 H (32.0-45.0) mmHg pO2 44.3 L (83.0-108.0) mmHg HCO3 32.1 H (21.0-28.0) mmol/L Total CO2 33.9 H (19.0-24.0) mmol/L Base Excess 5.4 H (-2.0-3.0) mmol/L ABG O2 Sat (Measured) 78.2 L (94.0-98.0) % BUN (3-23) mg/dL BUN/Creatinine Ratio (9.0-21.6) Random Glucose (70-110) mg/dL Total Protein (6.2-8.2) gm/dL Albumin (3.4-5.0) gm/dl - Exam Constitutional: Present: Alert, Oriented x3, Cooperative ENT Exam: Present: hearing grossly normal Neck: Present: supple. Absent: lymphadenopathy (R), lymphadenopathy (L) Respiratory: Present: decreased breath sounds, rales, wheezing Cardiovascular/Chest: Present: no gallop, systolic murmur, irregularly irregular Abdomen: Present: Normal bowel sounds, soft, nontender, nondistended Extremity: Present: no calf tenderness, pedal edema Cauti Physician Documentation - Urinary Catheter Management Arrington catheter Date of Insertion: 09/12/20 Time of Insertion: 15:00 Date of Removal: 09/16/20 Time of Removal: 08:50 Assessment/Plan Plan Narrative: Alejandra had episode of oxygen desaturation today, felt to be fluid overload ( 6+ L ?). We will hold her metoprolol, lisinopril ( already on hold) oral Lasix and spironolactone and give her 40 mg of IV Lasix x1 now. She may need another dose later if BP allows. Her ABG showing a PO2 of 80 with a normal pH and elevated PCO2 which likely is her baseline. We will try her on CPAP with 5 of PEEP. We will need to monitor her heart rate and blood pressure closely. We will increase her prednisone back to 20 mg p.o. daily as her low blood pressure could be also due to some adrenal insufficiency. Her white blood cell continues to go down after her formal debridement and irrigation last and IV abx. We are continuing with her IV clindamycin ( Day # 4, prior - 5 days IV rocephin and Vanco). Once her hemodynamics stabilizes plan for fdc placement. - Problems/Diagnosis (1) Leukocytosis Problem: Acute (2) Cellulitis and abscess of hand Problem: Acute (3) Dyspnea Problem: Acute Qualifiers: Dyspnea type: shortness of breath Qualified Code(s): R06.02 - Shortness of breath (4) Elevated brain natriuretic peptide (BNP) level Problem: Acute (5) UTI (urinary tract infection) Problem: Resolved (6) Pulmonary infiltrate in right lung on chest x-ray Problem: Resolved (7) CHF (congestive heart failure) Problem: Resolved Qualifiers: Heart failure type: right-sided Heart failure chronicity: acute Qualified Code(s): I50.811 - Acute right heart failure (8) Atrial fibrillation Problem: Acute Qualifiers: Atrial fibrillation type: persistent (not longstanding) Qualified Code(s): I48.19 - Other persistent atrial fibrillation (9) Type II diabetes mellitus Problem: Chronic Qualifiers: Diabetes mellitus correction insulin use: without research executive use Diabetes mellitus complication status: with kidney complications Diabetes mellitus complication detail: with chronic kidney disease Chronic kidney disease stage: stage 3 (moderate) Chronic kidney disease stage 3 subtype: stage 3b (GFR 30- 44) Qualified Code(s): E11.21 - Type 2 diabetes mellitus with diabetic nephropathy; N18.32 - Chronic kidney disease, stage 3b (10) CRF (chronic renal failure) Problem: Chronic Qualifiers: Chronic kidney disease stage: stage 3 (moderate) Chronic kidney disease stage 3 subtype: stage 3b (GFR 30-44) Qualified Code(s): N18.32 - Chronic kidney disease, stage 3b (11) Chronic obstructive pulmonary disease Problem: Chronic Qualifiers: COPD type: COPD with acute exacerbation Qualified Code(s): J44.1 - Chronic obstructive pulmonary disease with (acute) exacerbation (12) Hypertension Problem: Chronic Qualifiers: Hypertension type: essential hypertension Qualified Code(s): I10 - Essential (primary) hypertension
[2020-09-22] MEDS ORDERED: FUROSEMIDE 10 MG/ML VIAL ONE (15:39)
[2020-09-22] MEDS: INSULIN GLARGINE,HUM.REC.ANLOG 100 UNITS/ML VIAL SC SCH (21:03)
[2020-09-23] MEDS: CLINDAMYCIN IN 0.9 % SOD CHLOR 600 MG/50 ML BAG IV SCH ×4 (00:28→20:00)
[2020-09-23] MEDS: INSULIN LISPRO 100 UNITS/ML VIAL SC SCH ×3 (06:34→17:31)
[2020-09-23] MEDS: HYDROcodone/ACETAMINOPHEN 1 EACH TABLET PO PRN (06:37)
[2020-09-23] MEDS: SPIRONOLACTONE 25 MG TABLET PO SCH (08:14)
[2020-09-23] MEDS: MONTELUKAST SODIUM 10 MG TABLET PO SCH (08:14)
[2020-09-23] MEDS: LISINOPRIL 5 MG TABLET PO SCH (08:14)
[2020-09-23] MEDS: METOPROLOL TARTRATE 25 MG TABLET PO SCH ×2 (08:14→21:26)
[2020-09-23] MEDS: SACCHAROMYCES BOULARDII 250 MG CAPSULE PO SCH ×2 (08:14→21:24)
[2020-09-23] MEDS: predniSONE 20 MG TABLET PO SCH (08:15)
[2020-09-23] MEDS: LATANOPROST 25 DROP BTL OP SCH (08:15)
[2020-09-23] MEDS: APIXABAN 2.5 MG TABLET PO SCH ×2 (08:15→21:24)
[2020-09-23] MEDS: DORZOLAMIDE HCL 100 DROP BTL OP SCH ×3 (08:15→17:32)
[2020-09-23] MEDS: BRIMONIDINE TARTRATE 50 DROP BTL OP SCH ×2 (08:15→21:23)
[2020-09-23] MEDS: FUROSEMIDE 40 MG TABLET PO SCH ×2 (08:15→21:24)
--- NOTE | 2020-09-23 08:29 | PN ---
Subjective - Date and Time Seen Date: 09/23/20 Time: 08:28 Subjective Narrative: BP are back to baseline. Afebrile. . Objective - Review of Systems Generalized/Overall Review: Reports: Weakness. Denies: Chills, Fever EENTM: Denies: Blurred Vision Respiratory: Reports: Cough, Shortness of Breath, Wheezing Cardiac: Reports: Edema. Denies: Chest Pain, Palpitations Abdominal: Denies: Nausea, Vomiting Genitourinary Symptoms: Denies: Urgency, Frequency Neurological: Denies: Headache Skin: Denies: Lesions, Rash Misc: All systems neg except as marked - Vitals Vitals: Last Vital Signs Temp 36.6 C 09/23/20 06:32 Pulse 85 09/23/20 08:15 Resp 24 H 09/23/20 06:32 BP 132/72 09/23/20 08:15 Pulse Ox 91 L 09/23/20 06:32 - Abnormal Lab Findings Abnormal Lab Findings: Abnormal Lab Results 09/22/20 Range/Units 08:46 pCO2 56.2 H (32.0-45.0) mmHg pO2 44.3 L (83.0-108.0) mmHg HCO3 32.1 H (21.0-28.0) mmol/L Total CO2 33.9 H (19.0-24.0) mmol/L Base Excess 5.4 H (-2.0-3.0) mmol/L ABG O2 Sat (Measured) 78.2 L (94.0-98.0) % - Exam Constitutional: Present: Alert, Oriented x3, Cooperative ENT Exam: Present: hearing grossly normal Neck: Present: supple. Absent: lymphadenopathy (R), lymphadenopathy (L) Respiratory: Present: decreased breath sounds, wheezing - occasional, No rales Cardiovascular/Chest: Present: no JVD, systolic murmur, irregularly irregular Abdomen: Present: Normal bowel sounds, soft, nontender, nondistended Extremity: Present: no calf tenderness, pedal edema Cauti Physician Documentation - Urinary Catheter Management Arrington catheter Date of Insertion: 09/12/20 Time of Insertion: 15:00 Date of Removal: 09/16/20 Time of Removal: 08:50 Assessment/Plan Plan Narrative: Jaren BP is back to her baseline. Will resume her oral BP medications. She is day # 5 on her IV clindamycin (had 5 days of IV vanco before that). WbC is improving after her formal debreidement and irrigation in the OR. She is going to need skin graftin after that. Ortho to evaluate her again if it can be done locally or in a higher institution. Continue with PT/OT. - Problems/Diagnosis (1) Leukocytosis Problem: Acute (2) Cellulitis and abscess of hand Problem: Acute (3) Dyspnea Problem: Acute Qualifiers: Dyspnea type: shortness of breath Qualified Code(s): R06.02 - Shortness of breath (4) Elevated brain natriuretic peptide (BNP) level Problem: Acute (5) UTI (urinary tract infection) Problem: Resolved (6) Pulmonary infiltrate in right lung on chest x-ray Problem: Resolved (7) CHF (congestive heart failure) Problem: Resolved Qualifiers: Heart failure type: right-sided Heart failure chronicity: acute Qualified Code(s): I50.811 - Acute right heart failure (8) Atrial fibrillation Problem: Acute Qualifiers: Atrial fibrillation type: persistent (not longstanding) Qualified Code(s): I48.19 - Other persistent atrial fibrillation (9) Type II diabetes mellitus Problem: Chronic Qualifiers: Diabetes mellitus terminal press operator insulin use: without retirement use Diabetes mellitus complication status: with kidney complications Diabetes mellitus complication detail: with chronic kidney disease Chronic kidney disease stage: stage 3 (moderate) Chronic kidney disease stage 3 subtype: stage 3b (GFR 30- 44) Qualified Code(s): E11.21 - Type 2 diabetes mellitus with diabetic nephropathy; N18.32 - Chronic kidney disease, stage 3b (10) CRF (chronic renal failure) Problem: Chronic Qualifiers: Chronic kidney disease stage: stage 3 (moderate) Chronic kidney disease stage 3 subtype: stage 3b (GFR 30-44) Qualified Code(s): N18.32 - Chronic kidney disease, stage 3b (11) Chronic obstructive pulmonary disease Problem: Chronic Qualifiers: COPD type: COPD with acute exacerbation Qualified Code(s): J44.1 - Chronic obstructive pulmonary disease with (acute) exacerbation (12) Hypertension Problem: Chronic Qualifiers: Hypertension type: essential hypertension Qualified Code(s): I10 - Essential (primary) hypertension
--- NOTE | 2020-09-23 15:08 | PN ---
Subjective - Date and Time Seen Date: 09/23/20 Time: 15:04 Subjective Narrative: No complaints, hand feels better RUE - moving fingers, improved edema, dressings clean and dry, - changed - noted granulation and significant improved without sign of ongoing gross infection, sensation stable, brisk CR Objective - Vitals Vitals: Last Vital Signs Temp 36.3 C 09/23/20 14:51 Pulse 68 09/23/20 14:51 Resp 20 09/23/20 14:51 BP 108/55 09/23/20 14:51 Pulse Ox 4 L 09/23/20 14:51 Cauti Physician Documentation - Urinary Catheter Management Arrington catheter Date of Insertion: 09/12/20 Time of Insertion: 15:00 Date of Removal: 09/16/20 Time of Removal: 08:50 Assessment/Plan - Problems/Diagnosis (1) Abscess of right hand excluding fingers and thumb Problem: Acute Narrative: Hand is looking much better. Continue dressing changes. Plan for OR for skin grafting if OK with admitting provider. Would be able to DC/Transfer shortly after surgery.
[2020-09-23] MEDS: INSULIN GLARGINE,HUM.REC.ANLOG 100 UNITS/ML VIAL SC SCH (21:26)
[2020-09-24] MEDS: CLINDAMYCIN IN 0.9 % SOD CHLOR 600 MG/50 ML BAG IV SCH ×4 (00:24→18:46)
[2020-09-24] MEDS: HYDROcodone/ACETAMINOPHEN 1 EACH TABLET PO PRN ×3 (06:42→20:12)
[2020-09-24] MEDS: INSULIN LISPRO 100 UNITS/ML VIAL SC SCH ×3 (06:42→18:13)
[2020-09-24 07:32] LABS: Hematocrit 39.5 % (37.0-47.0); Hemoglobin 12.4 gm/dL (12.5-16.0); Mean Corpuscular Hemoglobin 29.5 pg (27-31); Mean Corpuscular Hgb Conc 31.4 g/dl (32-36); Mean Platelet Volume 8.9 fl (8-12.5); Neutrophil # 10.2 K/mm3 (1.3-6.0); Platelet Count 412 K/mm3 (150-450); Red Cell Distribution Width 14.6 % (11.5-14.0)
[2020-09-24 07:57] LABS: Anion Gap 8.1 mmol/L (6.8-13.8); Calcium * 8.9 mg/dL (7.9-10.9); Carbon Dioxide 36.3 mmol/L (24-32.6); Estimated Creat Clear 44.2; Potassium 3.4 mmol/L (3.4-4.6)
--- NOTE | 2020-09-24 08:45 | PN ---
Subjective - Date and Time Seen Date: 09/24/20 Time: 08:33 Subjective Narrative: patient is feeling better. afebrile. day # 6 IV clindamycin. WBC down to 14. Objective - Review of Systems Generalized/Overall Review: Reports: Weakness. Denies: Chills, Fever EENTM: Denies: Blurred Vision Respiratory: Reports: Cough, Shortness of Breath, Wheezing - ocassional Cardiac: Denies: Chest Pain, Edema, Palpitations Abdominal: Denies: Nausea, Vomiting, Abdominal Pain Genitourinary Symptoms: Denies: Urgency, Frequency Musculoskeletal Complaints: Reports: Joint Pain, Back Pain Neurological: Denies: Headache Skin: Denies: Lesions, Rash - Vitals Vitals: Last Vital Signs Temp 36.5 C 09/24/20 06:38 Pulse 87 09/24/20 06:38 Resp 20 09/24/20 06:38 BP 116/86 09/24/20 06:38 Pulse Ox 100 09/24/20 06:38 - Abnormal Lab Findings Abnormal Lab Findings: Abnormal Lab Results 09/24/20 09/24/20 Range/Units 07:14 07:14 WBC 14.0 H (4.0-10.5) K/mm3 Hgb 12.4 L (12.5-16.0) gm/dL MCHC 31.4 L (32-36) g/dl RDW 14.6 H (11.5-14.0) % Immature Gran % (Auto) 1.30 H (0.001-0.429) % Immature Gran # (Auto) 0.18 H (0.000-0.0310) K/mm3 Lymphocytes % 14.5 L (20-51) % Monocytes % 10.7 H (0.0-9) % Neutrophils # 10.2 H (1.3-6.0) K/mm3 Monocytes # 1.5 H (0.0-1.0) k/mm3 Carbon Dioxide 36.3 H (24-32.6) mmol/L BUN 27 H (3-23) mg/dL BUN/Creatinine Ratio 31.0 H (9.0-21.6) - Exam Constitutional: Present: Alert, Oriented x3, Cooperative, Elderly ENT Exam: Present: hearing grossly normal Neck: Present: supple. Absent: lymphadenopathy (R), lymphadenopathy (L) Respiratory: Present: decreased breath sounds, wheezing, No rales Cardiovascular/Chest: Present: no JVD, systolic murmur, irregularly irregular Abdomen: Present: Normal bowel sounds, soft, nontender, nondistended Extremity: Present: no pedal edema, no calf tenderness, other - right hand wrapped in bandage/dry Cauti Physician Documentation - Urinary Catheter Management Arrington catheter Date of Insertion: 09/12/20 Time of Insertion: 15:00 Date of Removal: 09/16/20 Time of Removal: 08:50 Assessment/Plan Plan Narrative: Alejandra is for skin grafting tomorrow. Her WBC is coming dowm slowly. Will continue with IV clindamycin (day#6) while she is in the hospital. Possible d/c to [facility] for PT/OT after skin grafting on oral clindamycin 300 mg PO TID x 1 week . She may proceed with anticipated surgery of skin grafting in the morning. NPO after midnight. D5 1/2 NSS at 75 ml/hour when NPO. Hold PO meds in the morning but may take her a.m. metoprolol with a sip of water only. Will hold her apixaban. - Problems/Diagnosis (1) Leukocytosis Problem: Acute (2) Cellulitis and abscess of hand Problem: Acute (3) Dyspnea Problem: Acute Qualifiers: Dyspnea type: shortness of breath Qualified Code(s): R06.02 - Shortness of breath (4) Elevated brain natriuretic peptide (BNP) level Problem: Acute (5) UTI (urinary tract infection) Problem: Resolved (6) Pulmonary infiltrate in right lung on chest x-ray Problem: Resolved (7) CHF (congestive heart failure) Problem: Resolved Qualifiers: Heart failure type: right-sided Heart failure chronicity: acute Qualified Code(s): I50.811 - Acute right heart failure (8) Atrial fibrillation Problem: Acute Qualifiers: Atrial fibrillation type: persistent (not longstanding) Qualified Code(s): I48.19 - Other persistent atrial fibrillation (9) Type II diabetes mellitus Problem: Chronic Qualifiers: Diabetes mellitus snf insulin use: without snf use Diabetes mellitus complication status: with kidney complications Diabetes mellitus complication detail: with chronic kidney disease Chronic kidney disease stage: stage 3 (moderate) Chronic kidney disease stage 3 subtype: stage 3b (GFR 30- 44) Qualified Code(s): E11.21 - Type 2 diabetes mellitus with diabetic nephropathy; N18.32 - Chronic kidney disease, stage 3b (10) CRF (chronic renal failure) Problem: Chronic Qualifiers: Chronic kidney disease stage: stage 3 (moderate) Chronic kidney disease stage 3 subtype: stage 3b (GFR 30-44) Qualified Code(s): N18.32 - Chronic kidney disease, stage 3b (11) Chronic obstructive pulmonary disease Problem: Chronic Qualifiers: COPD type: COPD with acute exacerbation Qualified Code(s): J44.1 - Chronic obstructive pulmonary disease with (acute) exacerbation (12) Hypertension Problem: Chronic Qualifiers: Hypertension type: essential hypertension Qualified Code(s): I10 - Essential (primary) hypertension
[2020-09-24 08:56] LABS: Hemoglobin A1C 7.2 % (3.80-5.60)
[2020-09-24] MEDS: SPIRONOLACTONE 25 MG TABLET PO SCH (09:17)
[2020-09-24] MEDS: predniSONE 20 MG TABLET PO SCH (09:18)
[2020-09-24] MEDS: FUROSEMIDE 40 MG TABLET PO SCH (09:18)
[2020-09-24] MEDS: BRIMONIDINE TARTRATE 50 DROP BTL OP SCH ×2 (09:18→20:12)
[2020-09-24] MEDS: APIXABAN 2.5 MG TABLET PO SCH (09:18)
[2020-09-24] MEDS: DIGOXIN 0.125 MG TABLET PO SCH (09:19)
[2020-09-24] MEDS: METOPROLOL TARTRATE 25 MG TABLET PO SCH ×2 (09:19→20:13)
[2020-09-24] MEDS: SACCHAROMYCES BOULARDII 250 MG CAPSULE PO SCH ×2 (09:19→20:12)
[2020-09-24] MEDS: LATANOPROST 25 DROP BTL OP SCH (09:20)
[2020-09-24] MEDS: DORZOLAMIDE HCL 100 DROP BTL OP SCH ×3 (09:20→18:46)
[2020-09-24] MEDS: MONTELUKAST SODIUM 10 MG TABLET PO SCH (09:20)
[2020-09-24] MEDS: LISINOPRIL 5 MG TABLET PO SCH (09:21)
[2020-09-24] MEDS: INSULIN GLARGINE,HUM.REC.ANLOG 100 UNITS/ML VIAL SC SCH (20:21)
[2020-09-25] MEDS: DEXTROSE 5%-0.5 NORMAL SALINE 1,000 ML IV PRN ×2 (00:02→12:40)
[2020-09-25] MEDS: CLINDAMYCIN IN 0.9 % SOD CHLOR 600 MG/50 ML BAG IV SCH ×4 (00:05→18:59)
[2020-09-25] MEDS ORDERED: MORPHINE SULFATE 10 MG/ML SYRG IV PRN (06:51)
[2020-09-25] MEDS: INSULIN LISPRO 100 UNITS/ML VIAL SC SCH ×6 (07:06→19:18)
[2020-09-25] MEDS: METHYLPREDNISOLONE SOD SUCC/PF 40 MG/ML VIAL IV SCH ×2 (07:37→19:23)
[2020-09-25] MEDS: SPIRONOLACTONE 25 MG TABLET PO SCH (08:16)
[2020-09-25] MEDS: DORZOLAMIDE HCL 100 DROP BTL OP SCH ×3 (09:18→17:18)
[2020-09-25] MEDS: LISINOPRIL 5 MG TABLET PO SCH (09:19)
[2020-09-25] MEDS: FUROSEMIDE 40 MG TABLET PO SCH (09:19)
[2020-09-25] MEDS: BRIMONIDINE TARTRATE 50 DROP BTL OP SCH ×2 (09:19→20:59)
[2020-09-25] MEDS: LATANOPROST 25 DROP BTL OP SCH (09:19)
[2020-09-25] MEDS: MONTELUKAST SODIUM 10 MG TABLET PO SCH (09:19)
[2020-09-25] MEDS: SACCHAROMYCES BOULARDII 250 MG CAPSULE PO SCH ×2 (09:20→21:01)
--- NOTE | 2020-09-25 09:47 | PREOP NOTE ---
Preoperative Progress Note - Preoperative Changes Changes to Preop Condition?: No Changes
--- NOTE | 2020-09-25 09:48 | PN ---
Subjective - Date and Time Seen Date: 09/25/20 Time: 09:46 Subjective Narrative: I feel okay, only chronic pain. Objective Objective Narrative: 75-year-old female admitted for right bronchopneumonia, cellulitis/abscess of the right hand, decompensated CHF CHF, and COPD exacerbation was evaluated at bedside and was found to be afebrile and in no acute distress. Patient denies any new pain outside of her normal this morning and says she feels okay. She is scheduled for a skin graft in the OR this morning to close the wound on her right hand. The patient is currently n.p.o. receiving IV hydration. Her respiratory function is now at his baseline and she is tolerating oxygen by nasal cannula without any issues. Labs yesterday morning revealed improvement of her leukocytosis and response to IV antibiotics, will repeat a CBC to reevaluate WBCs. - Review of Systems Generalized/Overall Review: Reports: No Symptoms Reported EENTM: Reports: No Symptoms Reported Respiratory: Reports: No Symptoms Reported Cardiac: Reports: No Symptoms Reported Abdominal: Reports: No Symptoms Reported Genitourinary Symptoms: Reports: No Symptoms Reported Musculoskeletal Complaints: Reports: No Symptoms Reported Neurological: Reports: No Symptoms Reported Skin: Reports: Lesions - Wound on right hand. Endocrine: Reports: No Symptoms Reported - Vitals Vitals: Last Vital Signs Temp 35.9 C L 09/25/20 06:00 Pulse 63 09/25/20 09:38 Resp 20 09/25/20 09:38 BP 105/60 09/25/20 09:38 Pulse Ox 96 09/25/20 09:38 - Exam Constitutional: Present: Alert, Oriented x3, Cooperative, Well developed, No distress, Elderly, Morbidly obese ENT Exam: Present: normal ENT inspection, hearing grossly normal, pharynx normal, TMs normal Neck: Present: non-tender, full range of motion, supple, normal inspection, trachea midline Breasts: Present: Exam deferred, Nontender Respiratory: Present: chest non-tender, lungs clear, no respiratory distress, no accessory muscle use, decreased breath sounds Cardiovascular/Chest: Present: normal peripheral pulses, regular rate, rhythm, no chest tenderness, no edema, no gallop, no JVD, no murmur, no rub Abdomen: Present: soft, nontender, nondistended, no rebound tenderness, no hepatospenomegaly, no masses, obese /Rectal: Present: Exam deferred Extremity: Present: normal range of motion, no pedal edema, no calf tenderness, normal capillary refill, pelvis stable, swelling, other - Right hand wrapped in clean dry dressings, no evidence of bleeding. Skin Exam: Present: normal color, warm/dry, no cyanosis Lymphatic: Present: no adenopathy Neurologic: Present: commercial photographer II-XII nml as tested, normal cerebellar test, no motor/sensory deficits, alert, normal mood/affect, oriented x 3 Appearance: Present: appropriate appearance, appropriate insight, neat, no memory impairment Eye contact: Present: cooperative, good eye contact, normal speech Thoughts: Present: normal thought pattern, no apparent hallucination Cauti Physician Documentation - Urinary Catheter Management Arrington catheter Date of Insertion: 09/12/20 Time of Insertion: 15:00 Date of Removal: 09/16/20 Time of Removal: 08:50 Assessment/Plan Plan Narrative: We will continue current management and follow-up with patient after her procedure in the OR. CBC has been ordered to reevaluate WBCs. - Problems/Diagnosis (1) Cellulitis and abscess of hand Problem: Acute (2) Leukocytosis Problem: Acute (3) CRF (chronic renal failure) Problem: Chronic Qualifiers: (4) Chronic obstructive pulmonary disease Problem: Chronic Qualifiers: COPD type: COPD with acute exacerbation Qualified Code(s): J44.1 - Chronic obstructive pulmonary disease with (acute) exacerbation (5) CHF (congestive heart failure) Problem: Resolved Qualifiers: Heart failure type: right-sided Heart failure chronicity: acute Qualified Code(s): I50.811 - Acute right heart failure (6) Pulmonary infiltrate in right lung on chest x-ray Problem: Resolved (7) UTI (urinary tract infection) Problem: Resolved (8) Hypoxia Problem: Acute (9) MRSA (methicillin resistant staph aureus) culture positive Problem: Acute (10) Type II diabetes mellitus Problem: Chronic Qualifiers: Diabetes mellitus terminal makeup operator insulin use: without intermediate use Diabetes mellitus complication status: with kidney complications Diabetes mellitus complication detail: with chronic kidney disease Chronic kidney disease stage: stage 3 (moderate) Qualified Code(s): E11.22 - Type 2 diabetes mellitus with diabetic chronic kidney disease
[2020-09-25 09:56] LABS: Hematocrit 37.3 % (37.0-47.0); Hemoglobin 11.8 gm/dL (12.5-16.0); Mean Cell Volume 93.3 fl (78-100); Mean Corpuscular Hemoglobin 29.5 pg (27-31); Mean Corpuscular Hgb Conc 31.6 g/dl (32-36); Mean Platelet Volume 8.6 fl (8-12.5); Neutrophil # 11.6 K/mm3 (1.3-6.0); Neutrophil % 86.8 % (42-75.0); Platelet Count 365 K/mm3 (150-450); Red Cell Distribution Width 14.7 % (11.5-14.0); White Blood Count 13.4 K/mm3 (4.0-10.5)
[2020-09-25] MEDS: METOPROLOL TARTRATE 50 MG TABLET PO SCH ×2 (09:56→21:02)
[2020-09-25] MEDS ORDERED: PROPOFOL VIAL IV ONE (15:01)
[2020-09-25] MEDS ORDERED: ONDANSETRON HCL/PF 2 MG/ML VIAL ONE (15:01)
[2020-09-25] MEDS ORDERED: fentaNYL CITRATE/PF 50 MCG/ML AMPUL ONE (15:01)
--- NOTE | 2020-09-25 15:25 | POSTOP NO ---
Date of Surgery: 09/25/20 Anesthesia: General Patient Tolerated the Procedure: Well Post Operative Diagnosis/Procedures: Back Tender Cylinder: Shad Oakley PA-C Post-operative Diagnosis: Abscess with full-thickness skin loss dorsal right hand Finding: Above Procedure: Split thickness skin grafting to the right dorsal hand 30 square centimeters Estimated Blood Loss: Minimal Specimens: None
[2020-09-25] MEDS ORDERED: NORMAL SALINE 20 ML VIAL ONE (15:55)
--- NOTE | 2020-09-25 16:46 | ANES ---
Post Anesthesia Discharge - Transfer of Care Transfer of Care handoff given to nurse: Yes - Discharge from PACU Discharge from PACU when meets criteria: Yes - Awake in PACU.
--- NOTE | 2020-09-25 17:01 | ANES ---
Post Anesthesia Assessment - Vital Signs Vitals: Last Vital Signs Temp 36.6 C 09/25/20 16:55 Pulse 88 09/25/20 16:55 Resp 18 09/25/20 16:55 BP 104/56 09/25/20 16:55 Pulse Ox 94 09/25/20 16:55 Airway Patency: Normal - Mental Status Level Of Consciousness: Awake, Alert, Appropriate - Pain Level Pain Score: 0 - N/V Assessment Nausea/Vomiting Presence: None Dehydration:: No
[2020-09-25] MEDS: APIXABAN 2.5 MG TABLET PO SCH (21:00)
[2020-09-25] MEDS: INSULIN GLARGINE,HUM.REC.ANLOG 100 UNITS/ML VIAL SC SCH (21:03)
[2020-09-26] MEDS: INSULIN LISPRO 100 UNITS/ML VIAL SC SCH ×3 (01:16→07:29)
[2020-09-26] MEDS: CLINDAMYCIN IN 0.9 % SOD CHLOR 600 MG/50 ML BAG IV SCH ×2 (01:17→07:28)
[2020-09-26] MEDS: HYDROcodone/ACETAMINOPHEN 1 EACH TABLET PO PRN (04:56)
[2020-09-26] MEDS: SPIRONOLACTONE 25 MG TABLET PO SCH (08:20)
[2020-09-26] MEDS: METOPROLOL TARTRATE 50 MG TABLET PO SCH (08:21)
[2020-09-26] MEDS: MONTELUKAST SODIUM 10 MG TABLET PO SCH (08:21)
[2020-09-26] MEDS: LISINOPRIL 5 MG TABLET PO SCH (08:21)
[2020-09-26] MEDS: FUROSEMIDE 40 MG TABLET PO SCH (08:21)
[2020-09-26] MEDS: APIXABAN 2.5 MG TABLET PO SCH (08:21)
[2020-09-26] MEDS: SACCHAROMYCES BOULARDII 250 MG CAPSULE PO SCH (08:22)
[2020-09-26] MEDS: BRIMONIDINE TARTRATE 50 DROP BTL OP SCH (08:23)
[2020-09-26] MEDS: LATANOPROST 25 DROP BTL OP SCH (08:23)
[2020-09-26] MEDS: DORZOLAMIDE HCL 100 DROP BTL OP SCH (08:23)
[2020-09-26] MEDS: predniSONE 20 MG TABLET PO SCH (08:56)
[2020-09-26] MEDS: METHYLPREDNISOLONE SOD SUCC/PF 40 MG/ML VIAL IV SCH (09:06)
--- NOTE | 2020-09-26 09:12 | DS ---
(1) Cellulitis and abscess of hand Problem: Resolved (2) Leukocytosis Problem: Acute (3) CRF (chronic renal failure) Problem: Chronic Qualifiers: (4) Chronic obstructive pulmonary disease Problem: Chronic Qualifiers: COPD type: COPD with acute exacerbation Qualified Code(s): J44.1 - Chronic obstructive pulmonary disease with (acute) exacerbation (5) CHF (congestive heart failure) Problem: Chronic Qualifiers: Heart failure type: right-sided Heart failure chronicity: acute Qualified Code(s): I50.811 - Acute right heart failure (6) Pulmonary infiltrate in right lung on chest x-ray Problem: Resolved (7) UTI (urinary tract infection) Problem: Resolved (8) Hypoxia Problem: Resolved (9) MRSA (methicillin resistant staph aureus) culture positive Problem: Acute (10) Type II diabetes mellitus Problem: Chronic Qualifiers: Diabetes mellitus watermelon inspector insulin use: without assisted use Diabetes mellitus complication status: with kidney complications Diabetes mellitus complication detail: with chronic kidney disease Chronic kidney disease stage: stage 3 (moderate) Qualified Code(s): E11.22 - Type 2 diabetes mellitus with diabetic chronic kidney disease Date of Discharge:: 09/26/20 Hospital Course: 75-year-old female admitted for a right bronchopneumonia, UTI, right hand cellulitis/abscess was evaluated at bedside this morning was found to be afebrile and in no acute distress. Patient has shown significant improvement, her breathing has improved and she is no longer hypoxic. The patient was weaned down to her baseline oxygen and is now on nasal cannula which she is tolerating without issues. She denies any UTI symptoms and has been treated with antibiotics for that. Yesterday she underwent an uneventful skin grafting by the orthopedic surgeon, there were no adverse events reported during the procedure. The orthopedic surgeon left strict instructions to not touch the surgical dressings and bandage on the patient's right hand, they are to stay in place until she follows up with him. Therefore we are discharging the patient to [facility] where she will continue with physical therapy and Occupational Therapy to address her issues with ambulation, deconditioning, and generalized weakness. She will be discharged with prescriptions for additional days of p.o. antibiotics and p.o. steroids which she is routinely on, and with orders to repeat a CBC sometime next week for reevaluation of her leukocytosis. Follow-up appointment has been scheduled with her PCP and the orthopedic surgeon for next week. Procedures Performed: see notes below - Incision and drainage of right hand abscess, and subsequent skin grafting. Results and Findings: Lab Pending Results 09/10/20 22:40: WBC 27.2 H, RBC 4.79, Hgb 13.8, Hct 43.8, MCV 91.4, MCH 28.8, MCHC 31.5 L, RDW 14.1 H, Plt Count 322, MPV 9.1, Neutrophils % (Manual) 89 H, Band Neuts % (Manual) 3 H, Lymphocytes % (Manual) 5 L, Monocytes % (Manual) 3, Neutrophils # (Manual) 24.2 H, Lymphocytes # (Manual) 1.4 L, Monocytes # (Manual) 0.8, Platelet Estimate Normal, RBC Morphology Normal 09/10/20 22:40: Sodium 131 L, Plasma Sodium 132, Potassium 4.2, Chloride 89 L, Carbon Dioxide 33.8 H, Anion Gap 12.4, BUN 49 H D, Creatinine 1.27, Est GFR (Non-Af Amer) 44 L D, BUN/Creatinine Ratio 38.6 H, Random Glucose 134 H, Calcium 10.2, Calcium Adj for Albumin 11.0 H, Total Bilirubin 0.7, AST 25, ALT 22, Alkaline Phosphatase 99, Troponin I 0.057, B-Natriuretic Peptide 8499 H, Total Protein 6.8, Albumin 2.6 L 09/10/20 22:40: Lactic Acid, Venous 2.0 09/10/20 22:40: Procalcitonin 2.67 H 09/10/20 22:40: TSH 0.028 L 09/10/20 22:53: C-Reactive Prot, Quant Less than 0.2 09/10/20 23:25: pCO2 54.1 H, pO2 60.4 L, HCO3 32.2 H, Total CO2 33.9 H, Base Excess 5.8 H, ABG pH 7.39, ABG O2 Sat (Measured) 90.6 L 09/11/20 00:05: Urine Color Yellow, Urine Appearance Clear, Urine pH 5.5, Ur Specific [place] 1.025, Urine Protein 30 H, Urine Glucose (UA) Negative, Urine Ketones 15, Urine Blood 50 H, Urine Nitrate Negative, Urine Bilirubin 3 H, Urine Ictotest Negative, Prot Sulfosalicylic Acd Negative, Urine Urobilinogen Normal, Ur Leukocyte Esterase Negative, Urine RBC 5-10 H, Urine WBC 0-5, Ur Epithelial Cells 0-5, Urine Bacteria 3+ H, Urine Culture Comments Culture to follow 09/11/20 01:32: Lactic Acid, Venous 1.2 09/11/20 : Thyroid Peroxidase Ab <1 09/12/20 07:10: WBC 23.3 H, RBC 4.47, Hgb 12.9, Hct 40.7, MCV 91.1, MCH 28.9, MCHC 31.7 L, RDW 14.2 H, Plt Count 337, MPV 9.2, Neutrophils % (Manual) 84 H, Ba nd Neuts % (Manual) 11 H, Lymphocytes % (Manual) 1 L, Monocytes % (Manual) 2, Neutrophils # (Manual) 19.6 H, Lymphocytes # (Manual) 0.2 L, Monocytes # (Manual) 0.5, Atypic/Reactive Lymphs 2, Toxic Granulation 1+, Toxic Vacuolation Trace, Platelet Estimate Normal, Microcytosis Trace 09/12/20 07:10: ESR 92 H 09/12/20 07:10: Sodium 128 L, Plasma Sodium 129 L, Potassium 4.3, Chloride 89 L, Carbon Dioxide 34.6 H, Anion Gap 8.7, BUN 46 H, Creatinine 0.87, Est GFR (Non-Af Amer) 67 D, BUN/Creatinine Ratio 52.9 H, Random Glucose 172 H, Calcium 10.3, C- Reactive Prot, Quant 23.1 H 09/12/20 07:10: Free T4 1.42 09/12/20 07:10: Free T3 3.2 09/12/20 08:09: pCO2 47.7 H, pO2 56.8 L, HCO3 29.7 H, Total CO2 31.2 H, Base Excess 4.2 H, ABG pH 7.41, ABG O2 Sat (Measured) 89.6 L 09/13/20 06:25: WBC 19.8 H, RBC 4.16 L, Hgb 12.2 L, Hct 38.2, MCV 91.8, MCH 29.3, MCHC 31.9 L, RDW 14.4 H, Plt Count 352, MPV 9.3, Immature Gran % (Auto) 1.30 H, Immature Gran # (Auto) 0.25 H, Neutrophils % 91.9 H, Lymphocytes % 2.9 L, Monocytes % 3.0, Eosinophils % 0.2, Basophils % 0.7, Nucleated RBC % 0.0, Neutrophils # 18.2 H, Lymphocytes # 0.58 L, Monocytes # 0.6, Eosinophils # 0.0, Absolute Basophils 0.1 09/13/20 06:30: Sodium 134, Plasma Sodium 134, Potassium 4.1, Chloride 93 L, Carbon Dioxide 37.0 H, Anion Gap 8.1, BUN 40 H, Creatinine 0.83, Est GFR (Non-Af Amer) 71, BUN/Creatinine Ratio 48.2 H, Random Glucose 119 H D, Calcium 10.2, Digoxin 2.2 H 09/14/20 11:14: pCO2 47.8 H, pO2 58.3 L, HCO3 33.4 H, Total CO2 34.9 H, Base Excess 8.4 H, ABG pH 7.46 H, ABG O2 Sat (Measured) 91.4 L 09/15/20 09:33: Vancomycin Trough 24.1 H 09/15/20 09:33: WBC 20.9 H, RBC 4.82, Hgb 14.1, Hct 44.1, MCV 91.5, MCH 29.3, MCHC 32.0, RDW 14.1 H, Plt Count 439, MPV 9.2, Immature Gran % (Auto) 1.90 H, Immature Gran # (Auto) 0.40 H, Neutrophils % 91.2 H, Lymphocytes % 3.2 L, Monocytes % 3.6, Eosinophils % 0.0, Basophils % 0.1, Nucleated RBC % 0.0, Neutrophils # 19.0 H, Lymphocytes # 0.66 L, Monocytes # 0.8, Eosinophils # 0.0, Absolute Basophils 0.0 09/15/20 09:33: Sodium 137, Plasma Sodium 139, Potassium 3.7, Chloride 96 L, Carbon Dioxide 36.4 H, Anion Gap 8.3, BUN 55 H, Creatinine 0.87, Est GFR (Non-Af Amer) 67, BUN/Creatinine Ratio 63.2 H, Random Glucose 206 H D, Calcium 10.7, B- Natriuretic Peptide 33936 H 09/16/20 07:10: WBC 23.3 H, RBC 4.74, Hgb 13.8, Hct 43.9, MCV 92.6, MCH 29.1, MCHC 31.4 L, RDW 14.0, Plt Count 418, MPV 9.1, Neutrophils % (Manual) 81 H, Lymphocytes % (Manual) 9 L, Monocytes % (Manual) 10 H, Neutrophils # (Manual) 18.9 H, Lymphocytes # (Manual) 2.1, Monocytes # (Manual) 2.3 H, Toxic Granulation 1+, Platelet Estimate Normal 09/16/20 07:10: Sodium 138, Plasma Sodium 138, Potassium 3.3 L, Chloride 97, Carbon Dioxide 41.0 H, Anion Gap 3.3 L, BUN 48 H, Creatinine 0.81, Est GFR (Non- Af Amer) 73, BUN/Creatinine Ratio 59.3 H, Random Glucose 69 L D, Calcium 9.7 09/17/20 06:42: WBC 23.8 H, RBC 4.77, Hgb 13.9, Hct 43.9, MCV 92.0, MCH 29.1, MCHC 31.7 L, RDW 14.0, Plt Count 386, MPV 8.8, Neutrophils % (Manual) 89 H, Lymphocytes % (Manual) 7 L, Monocytes % (Manual) 4, Neutrophils # (Manual) 21.2 H, Lymphocytes # (Manual) 1.7, Monocytes # (Manual) 1.0, Platelet Estimate Normal, Hypochromasia Trace 09/17/20 07:45: Urine Color Yellow, Urine Appearance Cloudy, Urine pH 7.5, Ur Specific [place] 1.015, Urine Protein 15 H, Urine Glucose (UA) Negative, Urine Ketones Negative, Urine Blood 50 H, Urine Nitrate Negative, Urine Bilirubin Negative, Prot Sulfosalicylic Acd 1+, Urine Urobilinogen 4 H, Ur Leukocyte Esterase 75 H, Urine RBC 5-10 H, Urine WBC >50 H, Ur Epithelial Cells >25 H, Urine Bacteria 2+ H, Urine Comment Culture ordered L 09/17/20 07:45: Yeast/Fungal Id See note 09/18/20 09:30: SARS-CoV-2 (PCR) Not detected 09/19/20 06:23: WBC 25.8 H, RBC 4.60, Hgb 13.6, Hct 42.7, MCV 92.8, MCH 29.6, MCHC 31.9 L, RDW 14.3 H, Plt Count 384, MPV 9.2, Neutrophils % (Manual) 89 H, Lymphocytes % (Manual) 7 L, Monocytes % (Manual) 4, Neutrophils # (Manual) 23.0 H, Lymphocytes # (Manual) 1.8, Monocytes # (Manual) 1.0, Platelet Estimate Normal, RBC Morphology Normal 09/19/20 06:23: ESR 33 H 09/19/20 06:23: Sodium 137, Plasma Sodium 136, Potassium 3.7, Chloride 99, Carbon Dioxide 35.0 H, Anion Gap 6.7 L, BUN 47 H, Creatinine 0.86, Est GFR (Non- Af Amer) 68, BUN/Creatinine Ratio 54.7 H, Random Glucose 64 L, Calcium 9.2, C- Reactive Prot, Quant 3.2 H 09/20/20 07:43: WBC 18.6 H D, RBC 4.51, Hgb 13.1, Hct 42.3, MCV 93.8, MCH 29.0, MCHC 31.0 L, RDW 14.5 H, Plt Count 405, MPV 9.2, Neutrophils % (Manual) 75, Band Neuts % (Manual) 4 H, Lymphocytes % (Manual) 11 L, Monocytes % (Manual) 10 H, Neutrophils # (Manual) 14.0 H, Lymphocytes # (Manual) 2.0, Monocytes # (Manual) 1.9 H, Platelet Estimate Normal, RBC Morphology Normal 09/22/20 06:12: WBC 15.6 H, RBC 4.03 L, Hgb 11.6 L, Hct 38.0, MCV 94.3, MCH 28.8, MCHC 30.5 L, RDW 14.5 H, Plt Count 395, MPV 9.0, Neutrophils % (Manual) 81 H, Lymphocytes % (Manual) 12 L, Monocytes % (Manual) 7, Neutrophils # (Manual) 12.6 H, Lymphocytes # (Manual) 1.9, Monocytes # (Manual) 1.1 H, Platelet Estimate Normal, RBC Morphology Normal 09/22/20 06:12: Sodium 137, Plasma Sodium 137, Potassium 3.6, Chloride 100, Carbon Dioxide 32.2, Anion Gap 8.4, BUN 35 H, Creatinine 0.81, Est GFR (Non-Af Amer) 73, BUN/Creatinine Ratio 43.2 H, Random Glucose 112 H D, Calcium 8.2, Calcium Adj for Albumin 9.4, Total Bilirubin 0.5, AST 23, ALT 22, Alkaline Phosphatase 73, Total Protein 5.0 L, Albumin 2.1 L 09/22/20 06:12: Digoxin 0.8 D 09/22/20 07:34: pCO2 57.0 H, pO2 47.1 L, HCO3 31.0 H, Total CO2 32.8 H, Base Excess 4.1 H, ABG pH 7.35, ABG O2 Sat (Measured) 80.2 L 09/22/20 08:46: pCO2 56.2 H, pO2 44.3 L, HCO3 32.1 H, Total CO2 33.9 H, Base Excess 5.4 H, ABG pH 7.38, ABG O2 Sat (Measured) 78.2 L 09/24/20 07:14: WBC 14.0 H, RBC 4.20, Hgb 12.4 L, Hct 39.5, MCV 94.0, MCH 29.5, MCHC 31.4 L, RDW 14.6 H, Plt Count 412, MPV 8.9, Immature Gran % (Auto) 1.30 H, Immature Gran # (Auto) 0.18 H, Neutrophils % 73.0, Lymphocytes % 14.5 L, Monocytes % 10.7 H, Eosinophils % 0.1, Basophils % 0.4, Nucleated RBC % 0.0, Neutrophils # 10.2 H, Lymphocytes # 2.03, Monocytes # 1.5 H, Eosinophils # 0.0, Absolute Basophils 0.1 09/24/20 07:14: Sodium 140, Plasma Sodium 140, Potassium 3.4, Chloride 99, Carbon Dioxide 36.3 H, Anion Gap 8.1, BUN 27 H, Creatinine 0.87, Est GFR (Non-Af Amer) 67, BUN/Creatinine Ratio 31.0 H, Random Glucose 93, Calcium 8.9 09/24/20 07:14: Mean Blood Glucose 160, Hemoglobin A1c 7.2 H 09/25/20 09:50: WBC 13.4 H, RBC 4.00 L, Hgb 11.8 L, Hct 37.3, MCV 93.3, MCH 29.5, MCHC 31.6 L, RDW 14.7 H, Plt Count 365, MPV 8.6, Immature Gran % (Auto) 1.00 H, Immature Gran # (Auto) 0.14 H, Neutrophils % 86.8 H, Lymphocytes % 7.0 L, Monocytes % 4.8, Eosinophils % 0.0, Basophils % 0.4, Nucleated RBC % 0.0, Neutrophils # 11.6 H, Lymphocytes # 0.93 L, Monocytes # 0.6, Eosinophils # 0.0, Absolute Basophils 0.1 Discharge Location: Other - [facility] Disposition: SNF Condition: Fair Face to Face Encounter completed per [facility] Guidelines: No Level of Care: SNF Discharge Activity: Activity as tolerated Discharge Diet: Consistent carbs Fdc Therapy: Physical Therapy, Occupation Therapy Additional Patient Instructions (free text): Going to [facility] for SNF, PT and OT to evaluate and treat. Please call and fax discharge information to them, fax # [phone]. Follow up appt with [facility] Orthopedics Dr Savage on Tuesday at 9:30. Follow up appt with [facility] Dr Garibay as TCM/Video call TuesdayOctober 06 at 11:00am. DO NOT REMOVE DRESSING TO RIGHT HAND Prescriptions (Any new or edited meds): Clindamycin HCl [Cleocin HCl] 300 mg PO Q8H 7 Days #21 capsule Apixaban [Eliquis] 2.5 mg PO BID #60 tablet Saccharomyces Boulardii [Florastor] 250 mg PO BID #60 capsule Metoprolol Tartrate [Lopressor] 50 mg PO BID #60 tablet HYDROcodone/ACETAMINOPHEN [[place] 5-325 Tablet] 1 tab PO Q6H PRN #30 tab PRN Reason: pain Prescription Printed predniSONE [Prednisone] 20 mg PO DAILY #30 tablet Complete Home Medications List: Complete Home Medication List: albuterol sulfate 0.63 mg/3 mL solution for nebulization 0.63 mg IH QID PRN 07/05/18 brimonidine 0.15 % eye drops 1 drp OP BID ml 07/05/18 acetaminophen 325 mg tablet See Rx Instructions PO .COMPLEX PRN 07/06/18 albuterol sulfate 90 mcg/actuation aerosol inhaler See Rx Instructions IH .COMPLEX 07/06/18 calcium carbonate 600 mg (1,500 mg)-vitamin D3 400 unit tablet 1 tab PO TID 07/06/18 ipratropium bromide 0.02 % solution for inhalation See Rx Instructions IH .COMPLEX 07/06/18 latanoprost 0.005 % eye drops 1 drp OP DAILY 07/06/18 montelukast 10 mg tablet 10 mg PO DAILY #90 tab 07/17/18 dorzolamide 2 % eye drops 1 drp OP TID 02/21/19 spironolactone 25 mg tablet 50 mg PO DAILY #180 tab 03/19/20 furosemide 40 mg tablet See Rx Instructions .ROUTE .COMPLEX #180 unspecified 03/21/20 amlodipine 10 mg tablet See Rx Instructions .ROUTE .COMPLEX #90 unknown measurement unit code: not specified 06/27/20 pioglitazone 15 mg tablet See Rx Instructions .ROUTE .COMPLEX #30 unknown measurement unit code: not specified 09/01/20 Albuterol Sulfate 2.5 mg INHALATION PRN PRN 09/11/20 Ascorbate Calcium [Vitamin C] 500 mg PO DAILY 09/11/20 Ipratropium [place] [Atrovent] 2.5 inh PRN PRN 09/11/20 Sennosides/Docusate Sodium [Stool Softener-Laxative Tablet] 1 tab PO PRN PRN 09/11/20 Vitamin A 10,000 unit PO DAILY 09/11/20 guaiFENesin [Guaifenesin] 1 cap PO PRN PRN 09/11/20 lisinopril 10 mg tablet See Rx Instructions .ROUTE .COMPLEX #90 unknown measurement unit code: not specified 09/12/20 prednisone 20 mg tablet 20 mg PO DAILY #90 tab 09/19/20 Apixaban [Eliquis] 2.5 mg PO BID #60 tablet 09/26/20 Clindamycin HCl [Cleocin HCl] 300 mg PO Q8H 7 Days #21 capsule 09/26/20 HYDROcodone/ACETAMINOPHEN [[place] 5-325 Tablet] 1 tab PO Q6H PRN #30 tab 09/26/20 Metoprolol Tartrate [Lopressor] 50 mg PO BID #60 tablet 09/26/20 Saccharomyces Boulardii [Florastor] 250 mg PO BID #60 capsule 09/26/20 predniSONE [Prednisone] 20 mg PO DAILY #30 tablet 09/26/20 Forms: Patient Portal Registration
[2020-09-26 11:19] VITALS: BP 117/56
--- NOTE | 2020-09-26 12:20 | OR ---
Operative Report - Dictated Report Narrative: Date: 09/25/2020 Physician: Luis Savage M.D. Parts Designer: Shad Oakley PA-C Preoperative diagnosis: Right dorsal hand abscess with full-thickness skin loss Postoperative diagnosis: Right dorsal hand abscess with full-thickness skin loss Procedure: Split-thickness skin grafting to right dorsal hand from right thigh 30 cm Anesthesia: General Complications: None Estimated blood loss: Minimal Tourniquet time: None Specimens: None Retained implants: None Drains: None Indications: Mrs. Hoover is a 75-year-old female who had a dorsal hand abscess which was treated with surgical debridement and wound care. She cleared her infection but had significant soft tissue defect over the dorsal aspect of her hand that required skin grafting. The risks, benefits, and alternatives were discussed in clinic. The risks being bleeding, infection, nerve, tendon, blood vessel injury, persistent pain, wound competitions, weakness, graft failure, need for additional procedures, and persistent symptoms. Consent was obtained on the floor. Procedure: After adequate anesthesia, the right hand was prepped and draped. The right thigh was also prepped and draped. We took a 3 inch x 3 inch split-thickness skin graft from the right thigh using a dermatome blade. This was then meshed 1-1.5. It was then fashioned in order to cover the defect over the dorsal aspect of the hand which was approximately 5 x 6 cm. There was minimal stretching and gapping of the mesh in order to provide a more continuous graft. It was stapled around the edges and secured at the mid section with chromic. This was done after ensuring that there is no additional poor appearing tissues. The donor site was then cleansed covered with a nonadherent dressing and Tegaderm. A bolster dressing with [place] and saline on cotton balls was placed over the skin graft site and secured with vessel loop stapled in order to provide light compression and prevents mobilization of the graft. No tourniquet was utilized. The right hand was then placed in a volar splint in order to prevent finger motion initially. She was awoken and transferred postanesthesia care in stable condition. All sponge needle and instrument counts correct prior to closing wounds.
== END 2020-09-26 11:40 | DRG 264 ==
LOC: ER 19:53 → MS 09-11 00:25
PROVIDERS: ADMIT Family Medicine; ATTEND Internal Medicine
DX: J44.1 Chronic obstructive pulmonary disease with (acute) exacerbation; I13.0 Hypertensive heart and chronic kidney disease with heart failure and stage 1 through stage 4 chronic kidney disease, or unspecified chronic kidney disease; I50.811 Acute right heart failure; I48.19 Other persistent atrial fibrillation; E11.22 Type 2 diabetes mellitus with diabetic chronic kidney disease; I27.81 Cor pulmonale (chronic); B95.62 Methicillin resistant Staphylococcus aureus infection as the cause of diseases classified elsewhere; L02.511 Cutaneous abscess of right hand; Z23 Encounter for immunization; E87.1 Hypo-osmolality and hyponatremia; L03.113 Cellulitis of right upper limb; N18.32 Chronic kidney disease, stage 3b; N39.0 Urinary tract infection, site not specified; B96.20 Unspecified Escherichia coli [E. coli] as the cause of diseases classified elsewhere; R91.8 Other nonspecific abnormal finding of lung field; D75.1 Secondary polycythemia; I27.20 Pulmonary hypertension, unspecified